=== PATIENT | female | born 1940 | race Caucasian/White ===

== ENCOUNTER 2022-05-30 20:09 | Emergency (ER) | payer MEDICARE, OTHER ==
--- NOTE | 2022-05-30 21:14 | XRAY ---
Indication: Headache. Posterior head injury following fall. Multiple contiguous axial images obtained through the head without contrast. Comparison: None Age-appropriate global atrophy and minimal periventricular degenerative micro-ischemia bilaterally. No acute intracranial hemorrhage, abnormal extra-axial fluid collection, or mass effect. Fourth ventricle is midline without hydrocephalus. Bony calvarium intact. Paranasal sinuses and mastoid air cells are clear. Impression: Nonacute senile brain.
--- NOTE | 2022-05-30 21:16 | XRAY ---
Indication: Neck pain following fall. Multiple contiguous axial images obtained through the cervical spine. Sagittal and coronal reformatted images obtained. Comparison: None Age-related osteopenia. Axial images negative for acute fracture, suspicious bone lesions, or spinal canal stenosis. Mild/moderate C4-C7 degenerative endplate spurring and mild/moderate multilevel bilateral degenerative facet hypertrophy. Sagittal and coronal reformatted images demonstrate lordotic straightening, positional versus paraspinal spasm. Elsewhere 3 mm anterolisthesis of C3 on C4 and C4-C7 disc space loss. No acute compression fracture or jumped facet. Normal appearing craniocervical junction. Visualized noncontrasted soft tissues demonstrates moderate bilateral carotid calcifications. Lung apices unremarkable. Impression: 1. Cervical lordotic straightening, positional versus paraspinal spasm. 2. Negative acute fracture. 3. Osteopenia, multilevel degenerative spondylosis, and minimal grade 1 C3 anterolisthesis.
--- NOTE | 2022-05-30 21:23 | ERPHSYRPT ---
- History of Present Illness Time Seen by Provider: 05/30/22 20:35 Source: patient, family Exam Limitations: no limitations Patient Subjective Stated Complaint: pt states "I fell around 1 pm today and fell back and hit my head." Triage Nursing Assessment: pt ambulatory to bed by self with personal walker with daughter, pt alert and oriented x3, pt c/o headache and L sided neck pain after falling around 1300, pt is on coumadin, pt unsure if any LOC, pupils PERRL Physician History: Patient is an 82-year-old white female who suffered a fall in March hitting the back of her head and then today she once again fell backward hitting the back of her head in the exact same spot. She had no loss of consciousness she does complain of pain in the head and in the neck. She had a PT/INR this morning which was 2.3 and very acceptable. She is also on Coumadin. Occurred: this afternoon Reason for Fall: lost balance Injuries/Pain Location: head Loss of Consciousness: no loss of consciousness Quality: throbbing Severity of Pain-Max: mild Severity of Pain-Current: mild Modifying Factors: Improves With: nothing Associated Symptoms (Fall): denies symptoms Allergies/Adverse Reactions: No Known Drug Allergies Allergy (Verified 12/26/14 06:17) Home Medications: Potassium Chloride Tab* [Klor Con] 20 meq PO QAM 12/22/14 [History] Furosemide 40 mg PO DAILY PRN 12/02/18 [History] Multivitamin [Daily Multivitamin] 1 tablet PO DAILY 12/02/18 [History] Sacubitril/Valsartan [Entresto 49 mg-51 mg Tablet] 0.5 tablet PO BID 12/02/18 [History] Spironolactone 25 mg PO QAM 12/02/18 [History] Trospium Chloride 10 mg PO BID 12/02/18 [History] carvediloL [Carvedilol] 12.5 mg PO BIDWM 12/02/18 [History] Fluticasone/Umeclidin/Vilanter [Trelegy Ellipta 100-62.5-25] 1 ea IH DAILY 04/05/19 [History] Magnesium Oxide [Magnesium] 250 mg PO DAILY 04/09/21 [History] Hx Tetanus, Diphtheria Vaccination/Date Given: Yes Hx Influenza Vaccination/Date Given: Yes Hx Pneumococcal Vaccination/Date Given: Yes Immunizations Up to Date: Yes Travel Risk - International Travel Have you traveled outside of the country in past 3 weeks: No - Coronavirus Screening Are you exhibiting any of the following symptoms?: No - Vaccine Status Have you recieved a Covid-19 vaccination: No - Review of Systems Constitutional: No Fever, No Chills Eyes: No Symptoms Ears, Nose, & Throat: No Symptoms Respiratory: No Cough, No Dyspnea Cardiac: No Chest Pain, No Edema, No Syncope Abdominal/Gastrointestinal: No Abdominal Pain, No Nausea, No Vomiting, No Diarrhea Genitourinary Symptoms: No Dysuria Musculoskeletal: Neck Pain, No Back Pain Skin: No Rash Neurological: Headache, No Dizziness, No Focal Weakness, No Sensory Changes Psychological: No Symptoms Endocrine: No Symptoms All Other Systems: Reviewed and Negative - Past Medical History Pertinent Past Medical History: Yes Neurological History: No Pertinent History ENT History: No Pertinent History Cardiac History: Arrhythmia, Hypertension Respiratory History: No Pertinent History Endocrine Medical History: No Pertinent History Musculoskeletal History: Arthritis GI Medical History: No Pertinent History, Polyps History: No Pertinent History Psycho-Social History: No Pertinent History Female Reproductive Disorders: No Pertinent History - Past Surgical History Past Surgical History: Yes Neuro Surgical History: No Pertinent History Cardiac: No Pertinent History Respiratory: No Pertinent History Gastrointestinal: Cholecystectomy Musculoskeletal: Joint Replacement Female Surgical History: Hysterectomy Other Surgical History: lucy knees - Social History Smoking Status: Never smoker Exposure to second hand smoke: No Drug Use: none Patient Lives Alone: No - Nursing Vital Signs Nursing Vital Signs: Initial Vital Signs Temperature 97.2 F 05/30/22 20:23 Pulse Rate 78 05/30/22 20:23 Respiratory Rate 18 05/30/22 20:23 Blood Pressure 124/74 05/30/22 20:23 O2 Sat by Pulse Oximetry 98 05/30/22 20:23 Pain Scale Pain Intensity 6 - Kumar Coma Score Best Eye Response ([place]): (4) open spontaneously Best Verbal Response ([place]): (5) oriented Best Motor Response ([place]): (6) obeys commands Kumar Total: 15 - Physical Exam General Appearance: no apparent distress, alert Head Injury: no evidence of injury Eye Exam: PERRL/EOMI ENT Exam: airway nml Neck Exam: normal inspection, No tenderness Respiratory/Chest Exam: normal breath sounds, No chest tenderness, No respiratory distress Cardiovascular Exam: normal heart sounds, regular rate/rhythm Gastrointestinal Exam: soft, No tenderness, No distention, No guarding, No ecchymosis Back Exam: normal inspection, No vertebral tenderness Extremity Exam: normal inspection, normal range of motion, pelvis stable, No deformities Neurologic Exam: alert, oriented x 3, cooperative, sensation nml, No motor deficits Skin Exam: normal color, warm, dry SpO2: 98 - Course Nursing assessment & vital signs reviewed: Yes - CT Exams Head CT Interpretation: Negative, Tele-radiologist Report Cervical Spine CT Interpretation: Other (Some loss of lordosis and degenerative changes no acute fracture or dislocation) Ordered Tests: Active Orders 24 hr Category Date Time Status CERVICAL SPINE WO CONTRAST [CT] Stat Exams 05/30/22 20:20 Completed HEAD WITHOUT CONTRAST [CT] Stat Exams 05/30/22 20:20 Completed - Progress Progress: unchanged - Departure Departure Disposition: Home Clinical Impression: Fall, Cervical strain, Closed head injury Condition: Stable Critical Care Time: No Referrals: TASHA CONWAY DO [Primary Care Provider] - Follow up/PCP as directed Instructions: Preventing Falls in Older Adults, Contusion (DC)
[2022-05-30 23:05] VITALS: BP 105/69; PULSE 93; O2SAT 96
[2022-05-31] MEDS ORDERED: COREG 12.5 MG PO SCH (10:00)
== END 2022-05-30 23:14 | disposition home or self-care (01) ==
LOC: ED 20:09
DX: S09.90XA Unspecified injury of head, initial encounter (principal); S16.1XXA Strain of muscle, fascia and tendon at neck level, initial encounter; W18.30XA Fall on same level, unspecified, initial encounter; Z91.81 History of falling; R00.2 Palpitations; R51.9 Headache, unspecified; M54.2 Cervicalgia; I10 Essential (primary) hypertension; Z79.01 Long term (current) use of anticoagulants; Z79.899 Other long term (current) drug therapy; Z28.310 Unvaccinated for COVID-19
CPT/HCPCS: 36415; 70450; 72125; 84484; 93005; 99283; A9270-GY

== ENCOUNTER 2022-11-18 10:18 | Inpatient (IN) | payer MEDICARE, OTHER ==
--- NOTE | 2022-11-18 11:28 | XRAY ---
Indication: Left-sided weakness and dizziness. Stroke. Multiple contiguous axial images obtained through the head without contrast. Comparison: May 30, 2022 Again age-appropriate global atrophy and minimal periventricular degenerative micro-ischemia. No acute intracranial hemorrhage, abnormal extra axial fluid collection, mass effect. Fourth ventricle is midline without hydrocephalus. [place]aj[place]-white matter differentiation preserved. Bony calvarium intact. Visualized paranasal sinuses and mastoid air cells are clear. Impression: Continued nonacute senile brain.
--- NOTE | 2022-11-18 11:52 | ERPHSYRPT ---
- History of Present Illness Time Seen by Provider: 11/18/22 10:40 Source: patient Exam Limitations: no limitations Patient Subjective Stated Complaint: Pt states "my legs have been swollen and sore. home health nurse told me my bp was very low" Triage Nursing Assessment: pt to room 9 via wheelchair with assist of one staff after using restroom for urine specimen collection. respiration even and unlabored on room. c/o bilat lower leg pain that is rated 5/10 and reports this is chronic and unchanged. heart sound WNL, bilat breath sound equal and clear. no s/s difficulty breathing. pt denies cp, sob, or other complaints. pt states that her blood pressure "always run like that" but was a little lower today. Physician History: Patient is an 82-year-old female presents to our ED for evaluation of blood pressure and dizziness. Patient sees a home health nurse for evaluation and treatment of right lower extremity wounds. Patient's blood pressure was checked and was advised that it was low. Patient advised RN that she had been feeling dizzy. Patient was therefore sent to our ED for an evaluation. Patient has a history of atrial fibrillation. Patient on Coumadin. Patient does not know last INR level or when it was last checked. patient has ongoing dizziness. Dizziness is not provoked by head motion. No history of the same. Symptoms are moderate in intensity. No specific worsening or improving factors. Patient voices no other complaints or concerns at this time. Portions of this note were created with voice recognition technology. There may be grammatical, spelling, punctuation or sound alike errors Timing/Duration: today Severity: moderate Modifying Factors: Improves With: nothing Associated Symptoms: denies symptoms Allergies/Adverse Reactions: No Known Drug Allergies Allergy (Verified 11/18/22 11:02) Home Medications: Potassium Chloride Tab* [Klor Con] 20 meq PO QAM 12/22/14 [History] Furosemide 40 mg PO DAILY PRN 12/02/18 [History] carvediloL [Carvedilol] 12.5 mg PO BIDWM 12/02/18 [History] Amiodarone HCl 200 mg [Cordarone 200 MG] 200 mg PO BID 11/18/22 [History] Digoxin 0.125 mg Tablet [Lanoxin 0.125MG TABLET] 0.125 mg PO DAILY 11/18/22 [History] Metolazone 2.5 mg [Zaroxolyn 2.5 MG] 2.5 mg PO 2XW 11/18/22 [History] Torsemide 20 mg [Demadex 20 mg] 20 mg PO BID 11/18/22 [History] Warfarin Sodium 5 mg [Jantoven] 4 mg PO DAILY 11/18/22 [History] Hx Tetanus, Diphtheria Vaccination/Date Given: Yes Hx Influenza Vaccination/Date Given: Yes Hx Pneumococcal Vaccination/Date Given: Yes Immunizations Up to Date: Yes Travel Risk - International Travel Have you traveled outside of the country in past 3 weeks: No - Coronavirus Screening Are you exhibiting any of the following symptoms?: No Close contact with a COVID-19 positive Pt in past 14-21 Days: No - Vaccine Status Have you recieved a Covid-19 vaccination: No - Review of Systems Constitutional: No Symptoms, No Fever, No Chills Eyes: No Symptoms Ears, Nose, & Throat: No Symptoms Respiratory: No Symptoms, No Cough, No Dyspnea Cardiac: No Symptoms, No Chest Pain, No Edema, No Syncope Abdominal/Gastrointestinal: No Symptoms, No Abdominal Pain, No Nausea, No Vomiting, No Diarrhea Genitourinary Symptoms: No Symptoms, No Dysuria Musculoskeletal: No Symptoms, No Back Pain, No Neck Pain Skin: No Symptoms, No Rash Neurological: No Symptoms, No Dizziness, No Focal Weakness, No Sensory Changes Psychological: No Symptoms Endocrine: No Symptoms Hematologic/Lymphatic: No Symptoms Immunological/Allergic: No Symptoms All Other Systems: Reviewed and Negative - Past Medical History Pertinent Past Medical History: Yes Neurological History: No Pertinent History ENT History: No Pertinent History Cardiac History: Arrhythmia, Congestive Heart Failure, Hypertension Respiratory History: No Pertinent History Endocrine Medical History: No Pertinent History Musculoskeletal History: Arthritis GI Medical History: No Pertinent History, Polyps History: No Pertinent History Psycho-Social History: No Pertinent History Female Reproductive Disorders: No Pertinent History Other Medical History: scheduled for PPM/ defib 12/03/[address] Harden - Past Surgical History Past Surgical History: Yes Neuro Surgical History: No Pertinent History Cardiac: No Pertinent History Respiratory: No Pertinent History Gastrointestinal: Cholecystectomy Genitourinary: No Pertinent History Musculoskeletal: Joint Replacement Female Surgical History: Hysterectomy Other Surgical History: lucy knees - Social History Smoking Status: Never smoker Exposure to second hand smoke: No Drug Use: none Patient Lives Alone: No - Nursing Vital Signs Nursing Vital Signs: Initial Vital Signs Temperature 96.9 F 11/18/22 10:30 Respiratory Rate 20 11/18/22 10:30 Blood Pressure 100/60 11/18/22 10:30 Pain Scale Pain Intensity 4 - Physical Exam General Appearance: no apparent distress, alert Eye Exam: PERRL/EOMI, eyes nml inspection Ears, Nose, Throat Exam: normal ENT inspection, TMs normal, pharynx normal, moist mucous membranes Neck Exam: normal inspection, non-tender, supple, full range of motion Respiratory Exam: normal breath sounds, lungs clear, No respiratory distress Cardiovascular Exam: regular rate/rhythm, normal heart sounds, normal peripheral pulses Gastrointestinal/Abdomen Exam: soft, normal bowel sounds, No tenderness, No mass Back Exam: normal inspection, normal range of motion, No CVA tenderness, No vertebral tenderness Extremity Exam: normal inspection, normal range of motion, pelvis stable Neurologic Exam: alert, oriented x 3, cooperative, normal mood/affect, nml cerebellar function, nml station & gait, sensation nml, No motor deficits Skin Exam: normal color, warm, dry, No rash Lymphatic Exam: No adenopathy SpO2 Interpretation: normal SpO2: 95 O2 Delivery: Room Air - Course Nursing assessment & vital signs reviewed: Yes EKG Interpreted by Me: RATE (54), A-fib, NORMAL AXIS, NORMAL INTERVALS - CT Exams Head CT Interpretation: Tele-radiologist Report (Nonacute senile brain) Other CT Interpretation: Tele-radiologist Report (CT a head with contrast shows mild scattered arteriosclerotic calcifications, bilateral distal carotid arteries with critical stenosis) Soft Tissue Neck CT Interpretation: Tele-radiologist Report (Mild atherosclerotic calcifications. Left greater than right. Biapical patchy groundglass airspace disease. Chronic bony findings) Ordered Tests: Active Orders 24 hr Category Date Time Status [employer] STAT Care 11/18/22 10:44 Active Cath [Catheter-[place]] STAT Care 11/18/22 15:49 Active EKG-ER Only STAT Care 11/18/22 10:43 Active IV Insertion STAT Care 11/18/22 10:43 Active Pulse Oximetry (ED) STAT Care 11/18/22 10:[address] ANGIOGRAPHY NECK [CT] Stat Exams 11/18/22 14:19 Completed CTA HEAD W AND/OR WO CONTRAST [CT] Stat Exams 11/18/22 14:19 Completed HEAD WITHOUT CONTRAST [CT] Stat Exams 11/18/22 10:45 Completed CBC W DIFF Stat Lab 11/18/22 10:43 Completed CMP Stat Lab 11/18/22 12:04 Completed CULTURE,URINE Stat Lab 11/18/22 11:04 Received MAGNESIUM Stat Lab 11/18/22 12:04 Completed NT PRO BNPII Stat Lab 11/18/22 12:04 Completed PTT Stat Lab 11/18/22 12:04 Completed TROPONIN Q4H Lab 11/18/22 12:04 Completed TROPONIN Q4H Lab 11/18/22 15:35 Completed TROPONIN Q4H Lab 11/18/22 18:45 Ordered UA W/RFX UR CULTURE Stat Lab 11/18/22 11:04 Completed Transfer Order Routine Transfer 11/18/22 Ordered Medication Summary Generic Name Dose Route Start Last Admin Trade Name Freq PRN Reason Stop Dose Admin Ceftriaxone Sodium/Dextrose 1 g in 50 mls @ 100 mls/hr 11/18/22 16:46 11/18/22 17:05 Rocephin 1 Gm-D5w 50 Ml Bag IV 11/18/22 17:15 Infused STAT STA Infusion Discontinued Medications Generic Name Dose Route Start Last Admin Trade Name Freq PRN Reason Stop Dose Admin Ceftriaxone Sodium/Dextrose Confirm 11/18/22 16:49 Rocephin 1 Gm-D5w 50 Ml Bag Administered 11/18/22 16:50 Dose 1 g in 50 mls @ ud IV .K-MED ONE Lab/Rad Data: Laboratory Result Diagrams 11/18/22 10:43 11/18/22 12:04 Laboratory Results 11/18/22 11/18/22 11/18/22 Range/Units 15:35 15:35 12:04 WBC (4.0-10.5) x10^3/uL RBC (4.1-5.4) x10^6/uL Hgb (12.0-16.0) g/dL Hct (35-47) % MCV (78-100) fL MCH (26-32) pg MCHC (32-36) g/dL RDW (11.5-14.0) % Plt Count (150-450) x10^3/uL MPV (7.5-11.0) fL Gran % (36.0-66.0) % Immature Gran % (Auto) (0.00-0.4) % Nucleat RBC Rel Count (0.00-0.1) % Eos # (Auto) (0-0.5) x10^3/uL Immature Gran # (Auto) (0.00-0.03) x10^3u/L Absolute Lymphs (auto) (1.0-4.6) x10^3/uL Absolute Monos (auto) (0.0-1.3) x10^3/uL Absolute Nucleated RBC (0.00-0.01) x10^3u/L Lymphocytes % (24.0-44.0) % Monocytes % (0.0-12.0) % Eosinophils % (0.00-5.0) % Basophils % (0.0-0.4) % Absolute Granulocytes (1.4-6.9) x10^3/uL Basophils # (0-0.4) x10^3/uL APTT (25.1-36.5) SECONDS Sodium (137-145) mmol/L Potassium (3.5-5.1) mmol/L Chloride (98-107) mmol/L Carbon Dioxide (22-30) mmol/L Anion Gap (5-15) MEQ/L BUN (7-17) mg/dL Creatinine (0.52-1.04) mg/dL Estimated GFR ML/MIN Glucose (74-106) mg/dL Calcium (8.4-10.2) mg/dL Magnesium (1.6-2.3) mg/dL Total Bilirubin (0.2-1.3) mg/dL AST (14-36) U/L ALT (0-35) U/L Alkaline Phosphatase (38-126) U/L Troponin I 0.021 0.023 (0.000-0.034) ng/mL NT-Pro-B Natriuret Pep (<300) pg/mL Serum Total Protein (6.3-8.2) g/dL Albumin (3.5-5.0) g/dL Urine Color (Yellow) Urine Appearance (Clear) Urine pH (4.6-8.0) Ur Specific [place] (1.005-1.030) Urine Protein (Negative) Urine Glucose (UA) (Negative) mg/dL Urine Ketones (Negative) Urine Blood (Negative) Urine Nitrite (Negative) Urine Bilirubin (Negative) Urine Urobilinogen (0.2) mg/dL Ur Leukocyte Esterase (Negative) U Hyaline Cast (Auto) (0-2) /LPF Urine Microscopic RBC (0-5) /HPF Urine Microscopic WBC (0-5) /HPF Ur Epithelial Cells (None Seen) /HPF Urine Bacteria (None Seen) /HPF Urine Culture Reflexed (NO) Influenza Type A Ag NEGATIVE (NEGATIVE) Influenza Type B Ag NEGATIVE (NEGATIVE) RSV (PCR) NEGATIVE (NEGATIVE) SARS-CoV-2 (PCR) NEGATIVE (NEGATIVE) 11/18/22 11/18/22 11/18/22 Range/Units 12:04 12:04 11:04 WBC (4.0-10.5) x10^3/uL RBC (4.1-5.4) x10^6/uL Hgb (12.0-16.0) g/dL Hct (35-47) % MCV (78-100) fL MCH (26-32) pg MCHC (32-36) g/dL RDW (11.5-14.0) % Plt Count (150-450) x10^3/uL MPV (7.5-11.0) fL Gran % (36.0-66.0) % Immature Gran % (Auto) (0.00-0.4) % Nucleat RBC Rel Count (0.00-0.1) % Eos # (Auto) (0-0.5) x10^3/uL Immature Gran # (Auto) (0.00-0.03) x10^3u/L Absolute Lymphs (auto) (1.0-4.6) x10^3/uL Absolute Monos (auto) (0.0-1.3) x10^3/uL Absolute Nucleated RBC (0.00-0.01) x10^3u/L Lymphocytes % (24.0-44.0) % Monocytes % (0.0-12.0) % Eosinophils % (0.00-5.0) % Basophils % (0.0-0.4) % Absolute Granulocytes (1.4-6.9) x10^3/uL Basophils # (0-0.4) x10^3/uL APTT 31.2 (25.1-36.5) SECONDS Sodium 138 (137-145) mmol/L Potassium 4.2 (3.5-5.1) mmol/L Chloride 98 (98-107) mmol/L Carbon Dioxide 34 H (22-30) mmol/L Anion Gap 10.1 (5-15) MEQ/L BUN 26 H (7-17) mg/dL Creatinine 0.94 (0.52-1.04) mg/dL Estimated GFR > 60.0 ML/MIN Glucose 118 H (74-106) mg/dL Calcium 8.8 (8.4-10.2) mg/dL Magnesium 2.1 (1.6-2.3) mg/dL Total Bilirubin 0.60 (0.2-1.3) mg/dL AST 32 (14-36) U/L ALT 19 (0-35) U/L Alkaline Phosphatase 95 (38-126) U/L Troponin I (0.000-0.034) ng/mL NT-Pro-B Natriuret Pep 1630 (<300) pg/mL Serum Total Protein 7.4 (6.3-8.2) g/dL Albumin 4.0 (3.5-5.0) g/dL Urine Color Yellow (Yellow) Urine Appearance Cloudy A (Clear) Urine pH 7.0 (4.6-8.0) Ur Specific [place] 1.010 (1.005-1.030) Urine Protein Trace A (Negative) Urine Glucose (UA) Negative (Negative) mg/dL Urine Ketones Negative (Negative) Urine Blood Negative (Negative) Urine Nitrite Negative (Negative) Urine Bilirubin Negative (Negative) Urine Urobilinogen 1.0 A (0.2) mg/dL Ur Leukocyte Esterase Small A (Negative) U Hyaline Cast (Auto) 3-5 A (0-2) /LPF Urine Microscopic RBC 3-5 (0-5) /HPF Urine Microscopic WBC 11-20 A (0-5) /HPF Ur Epithelial Cells Few (None Seen) /HPF Urine Bacteria Moderate A (None Seen) /HPF Urine Culture Reflexed YES (NO) Influenza Type A Ag (NEGATIVE) Influenza Type B Ag (NEGATIVE) RSV (PCR) (NEGATIVE) SARS-CoV-2 (PCR) (NEGATIVE) 03/21/23 Range/Units 10:43 WBC 6.9 (4.0-10.5) x10^3/uL RBC 3.95 L (4.1-5.4) x10^6/uL Hgb 12.5 (12.0-16.0) g/dL Hct 39.5 (35-47) % MCV 100.0 (78-100) fL MCH 31.6 (26-32) pg MCHC 31.6 L (32-36) g/dL RDW 13.7 (11.5-14.0) % Plt Count 190 (150-450) x10^3/uL MPV 10.6 (7.5-11.0) fL Gran % 70.5 H (36.0-66.0) % Immature Gran % (Auto) 0.6 H (0.00-0.4) % Nucleat RBC Rel Count 0.0 (0.00-0.1) % Eos # (Auto) 0.06 (0-0.5) x10^3/uL Immature Gran # (Auto) 0.04 H (0.00-0.03) x10^3u/L Absolute Lymphs (auto) 0.90 L (1.0-4.6) x10^3/uL Absolute Monos (auto) 0.93 (0.0-1.3) x10^3/uL Absolute Nucleated RBC 0.00 (0.00-0.01) x10^3u/L Lymphocytes % 13.1 L (24.0-44.0) % Monocytes % 13.6 H (0.0-12.0) % Eosinophils % 0.9 (0.00-5.0) % Basophils % 1.3 (0.0-0.4) % Absolute Granulocytes 4.84 (1.4-6.9) x10^3/uL Basophils # 0.09 (0-0.4) x10^3/uL APTT (25.1-36.5) SECONDS Sodium (137-145) mmol/L Potassium (3.5-5.1) mmol/L Chloride (98-107) mmol/L Carbon Dioxide (22-30) mmol/L Anion Gap (5-15) MEQ/L BUN (7-17) mg/dL Creatinine (0.52-1.04) mg/dL Estimated GFR ML/MIN Glucose (74-106) mg/dL Calcium (8.4-10.2) mg/dL Magnesium (1.6-2.3) mg/dL Total Bilirubin (0.2-1.3) mg/dL AST (14-36) U/L ALT (0-35) U/L Alkaline Phosphatase (38-126) U/L Troponin I (0.000-0.034) ng/mL NT-Pro-B Natriuret Pep (<300) pg/mL Serum Total Protein (6.3-8.2) g/dL Albumin (3.5-5.0) g/dL Urine Color (Yellow) Urine Appearance (Clear) Urine pH (4.6-8.0) Ur Specific [place] (1.005-1.030) Urine Protein (Negative) Urine Glucose (UA) (Negative) mg/dL Urine Ketones (Negative) Urine Blood (Negative) Urine Nitrite (Negative) Urine Bilirubin (Negative) Urine Urobilinogen (0.2) mg/dL Ur Leukocyte Esterase (Negative) U Hyaline Cast (Auto) (0-2) /LPF Urine Microscopic RBC (0-5) /HPF Urine Microscopic WBC (0-5) /HPF Ur Epithelial Cells (None Seen) /HPF Urine Bacteria (None Seen) /HPF Urine Culture Reflexed (NO) Influenza Type A Ag (NEGATIVE) Influenza Type B Ag (NEGATIVE) RSV (PCR) (NEGATIVE) SARS-CoV-2 (PCR) (NEGATIVE) - Progress Progress: improved Progress Note: Case discussed with Dr. Mckeon accepts admission to observation. Plan of care discussed with patient. She agrees to admission [facility] for further evaluation and treatment. 11/18/22 17:03 Patient is an 82-year-old female presents to our ED for evaluation of dizziness. Patient initially stated her blood pressure was low however blood pressure has been normal since her arrival to our ED today. Physical exam was essentially nonremarkable. No focal or lateralizing symptoms observed. Work-up detailed EKG which showed chronic atrial fibrillation. Patient currently on Coumadin. CTA head was negative for acute intracranial pathology. Nonacute senile brain observed. CBC CMP COVID ordered. COVID test negative. Magnesium within normal limits. BNP ordered. Troponin was 0.023, and 0.021. Patient has no chest pain. Urinalysis significant for urinary tract infection. We were unable to elicit patient's dizziness based on head motion. We consulted telemetry neurologist who advised a CT angio head and neck. CT angio completed. There was no critical stenosis observed. Teleneurologist advised admission for MRI brain without contrast. Other recommendations made. Please refer to teleneurologist note for further details. Vital stable. Complexity of problem addressed was moderate. Urinary tract infection. Dizziness is a new diagnosis with uncertain prognosis or etiology. Patient will require work-up to rule out stroke/posterior circulation stroke. Complexity of data reviewed and analyzed was moderate. Test ordered. Test reviewed. Patient is hard of hearing however she served as the primary historian. Consultation obtained from teleneurologist for management. Formal report obtained please observe chart for findings. Case discussed with Dr. Mckeon covering Dr. Arnold. Dr. Mckeon excepts admission to observation. Risk of complication of patient management was moderate. Patient received IV Rocephin to treat urinary tract infection. Patient will be hospitalized for further evaluation and treatment. Plan of care discussed the patient. She agrees to admission [facility] for further evaluation and treatment. Plan of care was established using the shared decision-making model. Patient's son is not at the bedside. He voices no other complaints or concerns at this time. Portions of this note were created with voice recognition technology. There may be grammatical, spelling, punctuation or sound alike errors 11/18/22 17:12 Discussed with : Mayte Will see patient in: hospital (observation) Counseled pt/family regarding: lab results, diagnosis, rad results - Departure Departure Disposition: Observation Clinical Impression: Urinary tract infection, Dizziness Condition: Stable Critical Care Time: No Referrals: TASHA CONWAY DO [Primary Care Provider] - Follow up/PCP as directed
[2022-11-18 12:02] LABS: Absolute Neutrophil Ct (ANC) 4.84 x10^3/uL (1.4-6.9); BASOPHIL % 1.3 % (0.0-0.4); Basophil (Absolute #) 0.09 x10^3/uL (0-0.4); Eosinophil % 0.9 % (0.00-5.0); Eosinophil (Absolute #) 0.06 x10^3/uL (0-0.5); Hematocrit 39.5 % (35-47); Hemoglobin 12.5 g/dL (12.0-16.0); IMMATURE GRAN # 0.04 x10^3u/L (0.00-0.03); IMMATURE GRAN % 0.6 % (0.00-0.4); Lymphocytes % 13.1 % (24.0-44.0); Mean Corpuscular Hemoglobin 31.6 pg (26-32); Mean Corpuscular Hgb Concent. 31.6 g/dL (32-36); Mean Platelet Volume 10.6 fL (7.5-11.0); Monocyte (Absolute #) 0.93 x10^3/uL (0.0-1.3); Monocytes % 13.6 % (0.0-12.0); Neutrophil % 70.5 % (36.0-66.0); Platelet Count 190 x10^3/uL (150-450); Red Blood Count 3.95 x10^6/uL (4.1-5.4); Red Cell Distribution Width 13.7 % (11.5-14.0); White Blood Count 6.9 x10^3/uL (4.0-10.5)
[2022-11-18 12:10] LABS: Appearance Cloudy (Clear); Bacteria Moderate /HPF (None Seen); Bilirubin Negative (Negative); Blood Negative (Negative); Epithelial Cells Few /HPF (None Seen); Glucose, Urine Negative (Negative); Ketones Negative (Negative); Leukocyte Esterase Small (Negative); Nitrite Negative (Negative); Protein,Urine Dip Trace (Negative)
[2022-11-18 12:16] LABS: ADD URINE CULTURE? YES (NO)
[2022-11-18 12:27] LABS: ALKALINE PHOSPHATASE 95 U/L (38-126); ANION GAP 10.1 MEQ/L (5-15); BLOOD UREA NITROGEN 26 mg/dL (7-17); CHLORIDE 98 mmol/L (98-107); Calcium 8.8 mg/dL (8.4-10.2); Carbon Dioxide 34 mmol/L (22-30); Creatinine 1 0.94 mg/dL (0.52-1.04); EST GLOMERULAR FILTRATION RATE > 60.0 ML/MIN; Glucose 118 mg/dL (74-106); MAGNESIUM 2.1 mg/dL (1.6-2.3); NT PRO BNPII 1630 pg/mL (<300); Potassium 4.2 mmol/L (3.5-5.1); SGOT/AST 32 U/L (14-36); SGPT/ALT 19 U/L (0-35); SODIUM 138 mmol/L (137-145); Total Protein 7.4 g/dL (6.3-8.2)
--- NOTE | 2022-11-18 15:29 | XRAY ---
Indication: Left-sided weakness and dizziness. Conventional contrast enhanced CTA neck performed using 100 cc Isovue 370 contrast. 2-D sagittal and coronal reformatted images obtained. Additional 3-D reformatted images obtained using a separate workstation. Comparison: None Visualized aortic arch minimally arteriosclerotic without aneurysm/dissection. Widely patent origin right brachiocephalic, left common carotid, and left subclavian arteries. Examination of the right carotid circulation demonstrates mild eccentric calcifications at the level of the bulb. Remaining common carotid, internal carotid, external carotid arteries are normal in CTA appearance. Examination of the left carotid circulation also demonstrates minimal eccentric calcifications of the level of the bulb. This further extends into the proximal internal carotid artery. No critical stenosis/obstruction. Remaining common carotid and external carotid arteries are normal in CTA appearance. Vertebral arteries are bilaterally symmetric and widely patent. Thyroid gland enhances homogeneously. No pathologic cervical/supraclavicular lymphadenopathy. Supra and infraglottic airway widely patent. Cervical spine intact with osteopenia, minimal/mild multilevel degenerative spondylosis greatest at C5-C7 levels, and 3-4 mm anterolisthesis of C3 on C4. Lung apices demonstrates incompletely visualized bilateral patchy ground glass airspace disease. Impression: 1. Mild arteriosclerotic calcifications, left greater than right as detailed. Negative for critical stenosis/obstruction. Remaining CTA neck negative. 2. Biapical pulmonary patchy ground glass airspace disease. 3. Chronic bony findings.
--- NOTE | 2022-11-18 15:31 | XRAY ---
Indication: Left-sided weakness and dizziness. Conventional contrast enhanced CTA head performed using 100 cc Isovue 370 contrast. 2-D sagittal and coronal reformatted images obtained. Additional 3-D reformatted images obtained using a separate workstation. Comparison: None Distal internal carotid arteries are bilaterally symmetric with mild scattered arteriosclerotic calcifications involving the parasellar segments. Negative for critical stenosis, obstruction, or AV malformation. Normal carotid terminus with normal branching A1 and M1 segments bilaterally. More distal anterior cerebral and middle cerebral arteries are normal in CTA appearance bilaterally. Posterior circulation demonstrates normal CTA appearance to the basilar, left/right posterior cerebral, left/right superior cerebellar, and left/right anterior inferior cerebellar arteries. Venous sinuses/drainage unremarkable. Brain parenchyma negative for abnormal enhancing intra-or extra-axial mass. Impression: Mild scattered arteriosclerotic calcifications both distal internal carotid arteries without critical stenosis/occlusion. Remaining CTA head with contrast exam is negative.
[2022-11-18 16:19] LABS: INFLUENZA A NEGATIVE (NEGATIVE); INFLUENZA B NEGATIVE (NEGATIVE); RESPIRATORY SYNCTIAL VIRUS NEGATIVE (NEGATIVE); SARS-CoV-2 Xpert Express NEGATIVE (NEGATIVE)
[2022-11-18] MEDS ORDERED: ROCEPHIN 1 Gm-D5w 50 ml Bag** 1 G/50 ML IVPB IV STA (16:46)
[2022-11-18] MEDS ORDERED: ROCEPHIN 1 Gm-D5w 50 ml Bag** 1 G/50 ML IVPB IV ONE (16:49)
[2022-11-18] MEDS ORDERED: MAALOX ES 30 ML UNIT DOSE PO PRN (17:28)
[2022-11-18] MEDS ORDERED: TYLENOL 325 MG PO PRN (17:28)
[2022-11-18] MEDS ORDERED: Senokot-S Tablet PO PRN (17:28)
[2022-11-18] MEDS ORDERED: MILK OF MAGNESIA 30 ML PO PRN (17:28)
[2022-11-18] MEDS ORDERED: Zofran 4 MG/2 ML VIAL IV PRN (17:28)
[2022-11-18 21:16] LABS: INR 1.96 (0.8-3.0); PROTIME 20.3 SECONDS (9.4-12.5)
[2022-11-18] MEDS ORDERED: COREG 12.5 MG PO SCH (22:00)
[2022-11-18] MEDS ORDERED: JANTOVEN ONE (22:10)
[2022-11-18] MEDS ORDERED: Coumadin 3 MG ONE (22:10)
[2022-11-18] MEDS: Lanoxin 0.125MG TABLET PO SCH (22:18)
[2022-11-18] MEDS: Cordarone 200 MG PO SCH (22:21)
[2022-11-19 05:47] LABS: Risk Ratio 3.4
[2022-11-19] MEDS ORDERED: FENTANYL 500 MCG/10 ML VIAL 1,500 MCG in Sodium Chloride 0.9% 150 ML 120 ML IV PRN (09:41)
[2022-11-19] MEDS ORDERED: SUBLIMAZE 100 MCG/2 ML IV PRN (09:41)
[2022-11-19] MEDS ORDERED: SUBLIMAZE 100 MCG/2 ML IV ONE (09:42)
[2022-11-19] MEDS: Advair Hfa 115/21 Common canister IH SCH ×2 (11:18→18:39)
[2022-11-19] MEDS: Sodium Chloride 0.9% 1000 ML 1,000 ML IV SCH (11:33)
[2022-11-19] MEDS: Cordarone 200 MG PO SCH ×2 (11:34→21:49)
[2022-11-19] MEDS: COREG 12.5 MG PO SCH ×2 (11:34→18:15)
[2022-11-19] MEDS: ROCEPHIN 1 Gm-D5w 50 ml Bag** 1 G/50 ML IVPB IV SCH (11:34)
[2022-11-19] MEDS: JANTOVEN PO SCH (18:15)
[2022-11-19] MEDS: Coumadin 3 MG PO SCH (18:15)
--- NOTE | 2022-11-19 19:03 | XRAY ---
Indication: Dizziness. Negative CT head, CTA neck, and CTA brain. Sagittal, coronal, and axial MRI brain performed without contrast using T1, T2, FLAIR, diffusion, and ADC sequences. Comparison: None Age-appropriate global atrophy and minimal periventricular degenerative micro-ischemia signal bilaterally. No acute intracranial hemorrhage, abnormal extra-axial fluid collection, or mass effect. Diffusion images are negative for restricted signal. Fourth ventricle is midline without hydrocephalus. 7/8 cranial nerve complex bilaterally symmetric. Normal flow void signal within the major intracerebral circulation. Normal appearing craniocervical junction and sella turcica. Paranasal sinuses are clear. Impression: Atrophy and degenerative micro-ischemia within normal limits for patient's age. Appearance similar to CT head exam one day earlier. No acute intracranial abnormalities or evidence for evolving large vessel territorial stroke.
[2022-11-20] MEDS: Sodium Chloride 0.9% 1000 ML 1,000 ML IV SCH (03:38)
[2022-11-20] MEDS: Advair Hfa 115/21 Common canister IH SCH ×2 (07:50→19:20)
[2022-11-20] MEDS: COREG 12.5 MG PO SCH ×2 (08:13→16:30)
[2022-11-20] MEDS: DEMADEX 20 MG PO SCH ×2 (09:07→21:35)
[2022-11-20] MEDS: Cordarone 200 MG PO SCH ×2 (09:08→21:35)
[2022-11-20] MEDS: Lanoxin 0.125MG TABLET PO SCH (09:08)
[2022-11-20] MEDS: ROCEPHIN 1 Gm-D5w 50 ml Bag** 1 G/50 ML IVPB IV SCH (09:09)
[2022-11-20] MEDS: ZYVOX PO SCH ×2 (11:19→21:35)
[2022-11-20] MEDS: JANTOVEN PO SCH (16:28)
[2022-11-20] MEDS: Coumadin 3 MG PO SCH (16:29)
[2022-11-21 05:13] LABS: BASOPHIL % 0.9 % (0.0-0.4); Basophil (Absolute #) 0.06 x10^3/uL (0-0.4); Eosinophil % 2.7 % (0.00-5.0); Eosinophil (Absolute #) 0.18 x10^3/uL (0-0.5); Hematocrit 34.5 % (35-47); Hemoglobin 11.1 g/dL (12.0-16.0); IMMATURE GRAN # 0.03 x10^3u/L (0.00-0.03); IMMATURE GRAN % 0.4 % (0.00-0.4); Lymphocyte (Absolute #) 1.19 x10^3/uL (1.0-4.6); Lymphocytes % 17.8 % (24.0-44.0); Mean Cell Volume 98.3 fL (78-100); Mean Corpuscular Hemoglobin 31.6 pg (26-32); Mean Corpuscular Hgb Concent. 32.2 g/dL (32-36); Mean Platelet Volume 10.9 fL (7.5-11.0); Monocyte (Absolute #) 0.92 x10^3/uL (0.0-1.3); Monocytes % 13.8 % (0.0-12.0); Neutrophil % 64.4 % (36.0-66.0); Platelet Count 155 x10^3/uL (150-450); Red Blood Count 3.51 x10^6/uL (4.1-5.4); Red Cell Distribution Width 13.4 % (11.5-14.0); White Blood Count 6.7 x10^3/uL (4.0-10.5)
[2022-11-21] MEDS: Advair Hfa 115/21 Common canister IH SCH ×2 (05:15→19:52)
[2022-11-21] MEDS: Sodium Chloride 0.9% 1000 ML 1,000 ML IV SCH (05:24)
[2022-11-21 05:46] LABS: ANION GAP 10.7 MEQ/L (5-15); BLOOD UREA NITROGEN 18 mg/dL (7-17); CHLORIDE 99 mmol/L (98-107); Calcium 8.1 mg/dL (8.4-10.2); Carbon Dioxide 28 mmol/L (22-30); Creatinine 1 0.74 mg/dL (0.52-1.04); EST GLOMERULAR FILTRATION RATE > 60.0 ML/MIN; Glucose 96 mg/dL (74-106); Potassium 3.5 mmol/L (3.5-5.1); SODIUM 135 mmol/L (137-145)
[2022-11-21] MEDS: COREG 12.5 MG PO SCH (08:11)
[2022-11-21] MEDS: DEMADEX 20 MG PO SCH ×2 (09:17→21:36)
[2022-11-21] MEDS: Lanoxin 0.125MG TABLET PO SCH (09:17)
[2022-11-21] MEDS: ZYVOX PO SCH ×2 (09:18→21:36)
[2022-11-21] MEDS: Cordarone 200 MG PO SCH ×2 (09:19→21:35)
--- NOTE | 2022-11-21 13:15 | PCM.NOTE ---
Date and Time: 11/21/22 1312 Subjective Assessment: Patient has been feeling weak and dizzy for several weeks with near syncope /falls and has required previous admission to hospital. This time admitted with UTI and dizziness. Nurse held Coreg 12,5mg this morning with Pulse = 42. During PT ambulation today became symptomatic and bradycardic rate 53. (See PT note). Urine culture /sens showed resistance to Rocephin and was changed to Linezolid. C/O loss of appetite today.Patient is on Coumadin for chronic Afib. Last visit with Mainframe Analyst,Dr Huynh 10/10/22 plan Pacemaker and Defibrilater for November. Dr Jolley is covering Dr Huynh this and will plan proceedure this Thursday. [facility] accepts patient when bed becomes available. Objective Exam General Appearance: no apparent distress Neurologic Exam: alert, oriented x 3, cooperative, normal mood/affect Skin Exam: warm, dry, pale Neck Exam: normal inspection Respiratory Exam: lungs clear Cardiovascular Exam: bradycardia (50), irregular Gastrointestinal/Abdomen Exam: soft, normal bowel sounds (nontender) OBJECTIVE DATA Vital Signs: Vital Signs - 24 hr Temp Pulse Resp BP BP Pulse Ox 11/21/22 12:00 97.8 F 57 L 16 109/47 95 11/21/22 09:17 62 113/56 11/21/22 08:00 16 11/21/22 07:09 97.6 F 62 16 113/56 92 L 11/21/22 05:15 57 L 18 91 L 11/21/22 04:00 97.1 F 56 L 18 114/58 96 11/21/22 00:00 18 11/20/22 23:23 97.5 F 57 L 18 117/59 96 11/20/22 20:00 20 11/20/22 19:57 98.0 F 54 L 20 106/53 96 11/20/22 19:27 65 18 94 L 11/20/22 16:00 97.1 F 54 L 16 101/53 95 11/20/22 13:41 18 Pain Assessment - Last Documented Pain Intensity 0 Intake and Output: Intake & Output 11/19/22 11/20/22 11/21/22 11/22/22 11:59 11:59 11:59 11:59 Intake Total 820 2314 1460 Output Total 700 800 950 Balance 120 1514 510 Weight 100.1 kg 103.2 kg 103.2 kg Lab Results: Lab Results-Last 24 Hours 11/21/22 11/21/22 Range/Units 05:18 05:18 WBC 6.7 (4.0-10.5) x10^3/uL RBC 3.51 L (4.1-5.4) x10^6/uL Hgb 11.1 L (12.0-16.0) g/dL Hct 34.5 L (35-47) % MCV 98.3 (78-100) fL MCH 31.6 (26-32) pg MCHC 32.2 (32-36) g/dL RDW 13.4 (11.5-14.0) % Plt Count 155 (150-450) x10^3/uL MPV 10.9 (7.5-11.0) fL Gran % 64.4 (36.0-66.0) % Immature Gran % (Auto) 0.4 (0.00-0.4) % Nucleat RBC Rel Count 0.0 (0.00-0.1) % Eos # (Auto) 0.18 (0-0.5) x10^3/uL Immature Gran # (Auto) 0.03 (0.00-0.03) x10^3u/L Absolute Lymphs (auto) 1.19 (1.0-4.6) x10^3/uL Absolute Monos (auto) 0.92 (0.0-1.3) x10^3/uL Absolute Nucleated RBC 0.00 (0.00-0.01) x10^3u/L Lymphocytes % 17.8 L (24.0-44.0) % Monocytes % 13.8 H (0.0-12.0) % Eosinophils % 2.7 (0.00-5.0) % Basophils % 0.9 (0.0-0.4) % Absolute Granulocytes 4.30 (1.4-6.9) x10^3/uL Basophils # 0.06 (0-0.4) x10^3/uL Sodium 135 L (137-145) mmol/L Potassium 3.5 (3.5-5.1) mmol/L Chloride 99 (98-107) mmol/L Carbon Dioxide 28 (22-30) mmol/L Anion Gap 10.7 (5-15) MEQ/L BUN 18 H (7-17) mg/dL Creatinine 0.74 (0.52-1.04) mg/dL Estimated GFR > 60.0 ML/MIN Glucose 96 (74-106) mg/dL Calcium 8.1 L (8.4-10.2) mg/dL Radiology Exams: Radiology Procedures Category Date Time Status MRI BRAIN W/O CONTRAST [MRI] Routine Exams 11/19/22 18:58 Completed Multi-Disciplinary Progress Notes: Multi-Disciplinary Progress Notes 11/21/22 10:26 Case Management Note by Cora Patino ATTEMPTED TO REACH PT NEXT OF KIN DIANA TOMAS TO SEE IF SHE CAN TELL US WHEN PT WAS LAST SEEN BY CARDIOLOGY. NO ANSWER. 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 Initialized on 11/21/22 10:15 - END OF NOTE 11/21/22 09:58 Physical Therapy Note by Craig(L#[id number]),Tova PT. UP IN RECLINER UPON P.T. ARRIVAL TO ROOM. NO C/O PN, BUT DOES C/O GENERALLY NOT FEELING WELL TODAY AND NOTES INCREASED DIZZINESS AGAIN. PT. AGREEBABLE TO P.T. PT. PERFORMED SIT TO STAND CGA W/ ROLLATOR. IMMEDIATELY NOTED INCREASED DIZZINESS AND PT. WAS PALE IN COLOR. PT. ALSO REPORTED FEELING NAUSEOUS. NO C/O CHEST PN. PT. REPORTED SHE WOULD ATTEMPT TO WALK W/ ROLLATOR BUT DID NOT FEEL SHE "COULD GO VERY FAR." ASKED PT. TO SIT BACK DOWN; ENCOURAGED PURSED LIP BREATHING. BP 115/58; HR 43 BPM. RNELIZABET, IN ROOM FOR VITALS WELL. ELEVATED LES IN RECLINER. PT. ALERT AND ORIENTED BUT SOMEWHAT SLOW TO RESPOND AND STARING WHICH WAS NOT THE CASE @ [facility] YESTERDAY. SPOKE W/ CORA PATINO IN UTILIZATION REVIEW WELL AND SHE PLANS TO DISCUSS W/ DR. CONWAY. PT. IS AT RISK FOR FALLS IF DIZZY EPISODES OCCUR. WILL CONT. TO ATTEMPT P.T. TOLERATED. Initialized on 11/21/22 09:58 - END OF NOTE 11/21/22 09:47 Case Management Note by Gogo Moreno S/W PATIENT- SHE CONTINUES TO DENY ANY NEW NEEDS AT TIME OF DC. SHE PLANS TO RETURN HOME WITH HER DAUGHTER AND C AT TIME OF DC. NO OTHER NEEDS AT THIS TIME Initialized on 11/21/22 09:47 - END OF NOTE Assessment/Plan (1) Bradycardia Current Visit: Yes Status: Acute Code(s): R00.1 - BRADYCARDIA, UNSPECIFIED (2) Chronic a-fib Current Visit: Yes Status: Chronic Code(s): I48.20 - CHRONIC ATRIAL FIBRILLATION, UNSPECIFIED (3) Sick sinus syndrome Current Visit: Yes Status: Suspected Assessment & Plan: Transfer to [facility] to Hospitalist when bed is available. Mainframe Analyst covering Dr Huynh,Dr Jolley plans pacemaker/defibrilator. Code(s): I49.5 - SICK SINUS SYNDROME (4) Urinary tract infection Current Visit: Yes Status: Acute Assessment & Plan: initially treated with Rocephin -resistant now on Linezolid possibly causing decreased appetite Code(s): N39.0 - URINARY TRACT INFECTION, SITE NOT SPECIFIED
[2022-11-21 14:59] LABS: TSH, 3RD Generation 1.01 mIU/L (0.47-4.68)
[2022-11-21 17:24] LABS: INR 2.89 (0.8-3.0); PROTIME 29.1 SECONDS (9.4-12.5)
[2022-11-21] MEDS: JANTOVEN PO SCH (18:34)
[2022-11-21] MEDS: Coumadin 3 MG PO SCH (18:34)
[2022-11-21] MEDS: Coreg PO SCH (21:35)
[2022-11-21] MEDS ORDERED: COREG 12.5 MG PO SCH (22:00)
[2022-11-22 05:12] LABS: Absolute Neutrophil Ct (ANC) 5.37 x10^3/uL (1.4-6.9); Basophil (Absolute #) 0.08 x10^3/uL (0-0.4); Eosinophil % 2.7 % (0.00-5.0); Eosinophil (Absolute #) 0.22 x10^3/uL (0-0.5); Hematocrit 37.1 % (35-47); Hemoglobin 12.1 g/dL (12.0-16.0); IMMATURE GRAN # 0.04 x10^3u/L (0.00-0.03); IMMATURE GRAN % 0.5 % (0.00-0.4); Lymphocyte (Absolute #) 1.39 x10^3/uL (1.0-4.6); Lymphocytes % 16.9 % (24.0-44.0); Mean Cell Volume 99.2 fL (78-100); Mean Corpuscular Hemoglobin 32.4 pg (26-32); Mean Corpuscular Hgb Concent. 32.6 g/dL (32-36); Mean Platelet Volume 11.1 fL (7.5-11.0); Monocyte (Absolute #) 1.11 x10^3/uL (0.0-1.3); Monocytes % 13.5 % (0.0-12.0); Neutrophil % 65.4 % (36.0-66.0); Platelet Count 159 x10^3/uL (150-450); Red Blood Count 3.74 x10^6/uL (4.1-5.4); Red Cell Distribution Width 13.6 % (11.5-14.0); White Blood Count 8.2 x10^3/uL (4.0-10.5)
[2022-11-22 05:43] LABS: ALBUMIN 3.5 g/dL (3.5-5.0); ALKALINE PHOSPHATASE 80 U/L (38-126); ANION GAP 13.4 MEQ/L (5-15); BLOOD UREA NITROGEN 18 mg/dL (7-17); CHLORIDE 100 mmol/L (98-107); Calcium 8.3 mg/dL (8.4-10.2); Carbon Dioxide 27 mmol/L (22-30); Creatinine 1 0.73 mg/dL (0.52-1.04); EST GLOMERULAR FILTRATION RATE > 60.0 ML/MIN; Glucose 92 mg/dL (74-106); SGOT/AST 40 U/L (14-36); SGPT/ALT 18 U/L (0-35); SODIUM 136 mmol/L (137-145); Total Protein 6.7 g/dL (6.3-8.2)
[2022-11-22] MEDS: Advair Hfa 115/21 Common canister IH SCH ×2 (07:12→19:48)
[2022-11-22] MEDS: Zestril 20 MG PO SCH (11:13)
[2022-11-22] MEDS: Coreg PO SCH (11:13)
[2022-11-22] MEDS: ZYVOX PO SCH ×2 (11:14→21:16)
[2022-11-22] MEDS: DEMADEX 20 MG PO SCH ×2 (11:16→19:31)
[2022-11-22] MEDS: Cordarone 200 MG PO SCH ×2 (11:52→21:40)
[2022-11-22] MEDS: JANTOVEN PO SCH (19:01)
[2022-11-22] MEDS: Coumadin 3 MG PO SCH (19:01)
[2022-11-23 04:51] LABS: Absolute Neutrophil Ct (ANC) 4.44 x10^3/uL (1.4-6.9); Basophil (Absolute #) 0.07 x10^3/uL (0-0.4); Eosinophil % 3.3 % (0.00-5.0); Eosinophil (Absolute #) 0.23 x10^3/uL (0-0.5); Hematocrit 33.5 % (35-47); IMMATURE GRAN # 0.04 x10^3u/L (0.00-0.03); IMMATURE GRAN % 0.6 % (0.00-0.4); Lymphocyte (Absolute #) 1.38 x10^3/uL (1.0-4.6); Lymphocytes % 19.7 % (24.0-44.0); Mean Cell Volume 96.5 fL (78-100); Mean Corpuscular Hemoglobin 31.7 pg (26-32); Mean Corpuscular Hgb Concent. 32.8 g/dL (32-36); Mean Platelet Volume 10.6 fL (7.5-11.0); Monocyte (Absolute #) 0.84 x10^3/uL (0.0-1.3); Neutrophil % 63.4 % (36.0-66.0); Platelet Count 176 x10^3/uL (150-450); Red Blood Count 3.47 x10^6/uL (4.1-5.4); Red Cell Distribution Width 13.3 % (11.5-14.0)
[2022-11-23 05:06] LABS: ALBUMIN 3.3 g/dL (3.5-5.0); ALKALINE PHOSPHATASE 84 U/L (38-126); ANION GAP 11.4 MEQ/L (5-15); BLOOD UREA NITROGEN 17 mg/dL (7-17); CHLORIDE 101 mmol/L (98-107); Calcium 8.5 mg/dL (8.4-10.2); Carbon Dioxide 29 mmol/L (22-30); Creatinine 1 0.79 mg/dL (0.52-1.04); EST GLOMERULAR FILTRATION RATE > 60.0 ML/MIN; Glucose 94 mg/dL (74-106); INR 2.58 (0.8-3.0); PROTIME 26.2 SECONDS (9.4-12.5); Potassium 3.2 mmol/L (3.5-5.1); SGOT/AST 29 U/L (14-36); SGPT/ALT 18 U/L (0-35); SODIUM 139 mmol/L (137-145); Total Protein 6.5 g/dL (6.3-8.2)
[2022-11-23] MEDS: Advair Hfa 115/21 Common canister IH SCH ×2 (07:46→19:47)
[2022-11-23] MEDS: Zestril 20 MG PO SCH (09:44)
[2022-11-23] MEDS: DEMADEX 20 MG PO SCH ×2 (09:44→22:31)
[2022-11-23] MEDS: ZYVOX PO SCH ×2 (09:45→22:31)
[2022-11-23] MEDS: Cordarone 200 MG PO SCH ×2 (09:45→22:31)
[2022-11-23] MEDS ORDERED: Lasix 40 MG/4 ML IV ONE (12:27)
[2022-11-23] MEDS ORDERED: Klor Con PO ONE (12:29)
[2022-11-23] MEDS: ENOXAPARIN SODIUM SQ SCH (13:22)
[2022-11-23] MEDS: Sodium Chloride 0.9% 1000 ML 1,000 ML IV SCH ×2 (22:53→22:54)
[2022-11-24] MEDS: Sodium Chloride 0.9% 1000 ML 1,000 ML IV SCH (00:48)
[2022-11-24 05:01] LABS: BASOPHIL % 1.2 % (0.0-0.4); Basophil (Absolute #) 0.08 x10^3/uL (0-0.4); Eosinophil % 3.9 % (0.00-5.0); Eosinophil (Absolute #) 0.26 x10^3/uL (0-0.5); Hematocrit 32.2 % (35-47); Hemoglobin 10.6 g/dL (12.0-16.0); IMMATURE GRAN # 0.02 x10^3u/L (0.00-0.03); IMMATURE GRAN % 0.3 % (0.00-0.4); Lymphocytes % 22.3 % (24.0-44.0); Mean Cell Volume 96.1 fL (78-100); Mean Corpuscular Hemoglobin 31.6 pg (26-32); Mean Corpuscular Hgb Concent. 32.9 g/dL (32-36); Mean Platelet Volume 10.6 fL (7.5-11.0); Monocyte (Absolute #) 0.66 x10^3/uL (0.0-1.3); Monocytes % 9.8 % (0.0-12.0); Neutrophil % 62.5 % (36.0-66.0); Platelet Count 187 x10^3/uL (150-450); Red Blood Count 3.35 x10^6/uL (4.1-5.4); Red Cell Distribution Width 13.7 % (11.5-14.0); White Blood Count 6.7 x10^3/uL (4.0-10.5)
[2022-11-24 05:07] LABS: ALBUMIN 3.3 g/dL (3.5-5.0); ALKALINE PHOSPHATASE 90 U/L (38-126); BLOOD UREA NITROGEN 20 mg/dL (7-17); CHLORIDE 102 mmol/L (98-107); Calcium 8.4 mg/dL (8.4-10.2); Carbon Dioxide 28 mmol/L (22-30); Creatinine 1 0.88 mg/dL (0.52-1.04); EST GLOMERULAR FILTRATION RATE > 60.0 ML/MIN; Glucose 90 mg/dL (74-106); SGOT/AST 29 U/L (14-36); SGPT/ALT 18 U/L (0-35); SODIUM 138 mmol/L (137-145); Total Protein 6.3 g/dL (6.3-8.2)
[2022-11-24 05:09] LABS: Potassium 3.5 mmol/L (3.5-5.1)
[2022-11-24 05:14] LABS: ANION GAP 11.5 MEQ/L (5-15)
[2022-11-24] MEDS: Advair Hfa 115/21 Common canister IH SCH (07:06)
[2022-11-24] MEDS: Cordarone 200 MG PO SCH (09:32)
[2022-11-24] MEDS: Zestril 20 MG PO SCH (09:32)
[2022-11-24] MEDS: DEMADEX 20 MG PO SCH (09:33)
[2022-11-24] MEDS: ZYVOX PO SCH (09:33)
[2022-11-24 11:37] VITALS: BP 142/63; PULSE 53; O2SAT 98
[2022-11-24] MEDS: Coumadin 3 MG PO SCH (14:40)
[2022-11-24] MEDS: JANTOVEN PO SCH (14:41)
[2022-11-24] MEDS: ENOXAPARIN SODIUM SQ SCH (14:43)
--- NOTE | 2022-12-22 23:03 | PCM.HP ---
History of Present Illness - Chief Complaint Chief Complaint: SYNCOPE, DIZZINESS, UTI History of Present Illness: Patient is an 82-year-old female presents to our ED for evaluation of blood pressure and dizziness. Patient sees a home health nurse for evaluation and treatment of right lower extremity wounds. Patient's blood pressure was checked and was advised that it was low. Patient advised RN that she had been feeling dizzy. Patient was therefore sent to our ED for an evaluation. Patient has a history of atrial fibrillation. Patient on Coumadin. Patient does not know last INR level or when it was last checked. patient has ongoing dizziness. Dizziness is not provoked by head motion. No history of the same. Symptoms are moderate in intensity. No specific worsening or improving factors. Patient voices no other complaints or concerns at this time. - Review of Systems Constitutional: Fatigue, Weakness, No Fever, No Chills Eyes: No Symptoms Ears, Nose, & Throat: No Symptoms Respiratory: No Cough, No Short Of Breath Cardiac: No Chest Pain, No Edema, No Syncope Abdominal/Gastrointestinal: No Abdominal Pain, No Nausea, No Vomiting, No Diarrhea Genitourinary Symptoms: No Dysuria Musculoskeletal: No Back Pain, No Neck Pain Skin: No Rash Neurological: No Dizziness, No Focal Weakness, No Sensory Changes Psychological: No Symptoms Endocrine: No Symptoms Hematologic/Lymphatic: No Symptoms Immunological/Allergic: No Symptoms Medications & Allergies Home Medications: Home Medication List Amiodarone HCl 200 mg [Cordarone 200 MG] 200 mg PO DAILY 11/18/22 [History Confirmed 12/06/22] Cholecalciferol (Vitamin D3) [Vitamin D] 5,000 units PO DAILY 11/18/22 [History Confirmed 12/06/22] Fluticasone/Umeclidin/Vilanter [Trelegy Ellipta 100-62.5-25] 1 puff IH DAILY 11/18/22 [History Confirmed 12/06/22] Carvedilol 12.5 mg [Coreg 12.5 mg] 12.5 mg PO BID 12/05/22 [History Confirmed 12/06/22] Digoxin 0.125 mg Tablet [Lanoxin 0.125MG TABLET] 0.125 mg PO DAILY 12/05/22 [History Confirmed 12/06/22] Furosemide 20 mg [Lasix 20 mg] 40 mg PO DAILY 12/05/22 [History Confirmed 12/06/22] Linagliptin [Tradjenta] 1 tablet PO DAILY 12/05/22 [History Confirmed 12/05/22] Magnesium Oxide 400 mg [Mag-Ox 400] 400 mg PO DAILY 12/05/22 [History Conf irmed 12/06/22] Multivitamin 1 tablet PO DAILY 12/05/22 [History Confirmed 12/06/22] Potassium Chloride 20 meq PO DAILY 12/05/22 [History Confirmed 12/06/22] Sacubitril/Valsartan [Entresto 24 mg-26 mg Tablet] 24 - 26 mg PO DAILY 12/05/22 [History Confirmed 12/06/22] Warfarin Sodium 3 mg PO DAILY 12/05/22 [History Confirmed 12/08/22] Ertapenem Sodium [Invanz ] 1,000 g IV DAILY 6 Days 12/08/22 [Rx] Allergies/Adverse Reactions: Allergies Allergy/AdvReac Type Severity Reaction Status Date / Time No Known Drug Allergies Allergy Verified 12/05/22 14:59 - Past Medical History Past Medical History: Yes Neurological History: No Pertinent History ENT History: No Pertinent History Cardiac History: Arrhythmia, Congestive Heart Failure, Hypertension Respiratory History: No Pertinent History Endocrine Medical History: No Pertinent History Musculoskelatal History: Arthritis GI Medical History: No Pertinent History, Polyps History: No Pertinent History Pyscho-Social History: No Pertinent History Reproductive Disorders: No Pertinent History Comment: scheduled for PPM/ defib 12/03/[address] Harden - Past Surgical History Past Surgical History: Yes Neuro Surgical History: No Pertinent History Cardiac History: No Pertinent History Respiratory Surgery: No Pertinent History GI Surgical History: Cholecystectomy Genitourinary Surgical Hx: No Pertinent History Musculskeletal Surgical Hx: Joint Replacement Female Surgical History: Hysterectomy Other Surgical History: lucy knees - Social History Smoking Status: Never smoker Exposure to second hand smoke: No Alcohol: None Drug Use: none - Physical Exam General Appearance: no apparent distress, alert Neurologic Exam: alert, cooperative, normal mood/affect, sensation nml, No motor deficits Eye Exam: PERRL/EOMI, eyes nml inspection Ears, Nose, Throat Exam: normal ENT inspection, pharynx normal, moist mucous membranes Neck Exam: normal inspection, non-tender, supple, full range of motion Respiratory Exam: normal breath sounds, lungs clear, No respiratory distress Cardiovascular Exam: normal heart sounds, normal peripheral pulses, irregular Gastrointestinal/Abdomen Exam: soft, normal bowel sounds, No tenderness, No mass Back Exam: normal inspection, normal range of motion, No CVA tenderness, No vertebral tenderness Extremity Exam: normal inspection, normal range of motion, pelvis stable Skin Exam: normal color, warm, dry, No rash Lymphatic Exam: No adenopathy Results - Labs Lab/Micro Results: Microbiology 11/18/22 11:04 Urine Culture - Final Urine, Void Staphylococcus Epidermidis Assessment/Plan (1) Urinary tract infection Status: Acute Assessment & Plan: iv antibiotics Code(s): N39.0 - URINARY TRACT INFECTION, SITE NOT SPECIFIED (2) Weakness Status: Acute Assessment & Plan: further evaluation Code(s): R53.1 - WEAKNESS (3) Bradycardia Status: Resolved Code(s): R00.1 - BRADYCARDIA, UNSPECIFIED (4) Dizziness Status: Resolved Assessment & Plan: monitor and further evaluation. Code(s): R42 - DIZZINESS AND GIDDINESS
--- NOTE | 2023-01-02 11:07 | PCM.DS ---
Discharge Summary Date of Admission: 11/19/22 08:35 Date of Discharge: 11/24/22 late entry Admitting Physician: STELLA DE LA FUENTE Primary Care Provider: TASHA CONWAY DO Allergies Allergies No Known Drug Allergies Allergy (Verified 12/05/22 14:59) Hospital Summary - Hospital Course Hospital Course: Patient with lonstanding Cardiac Hx ,Afib on Coumadin was admitted through ER to [facility] with UTI and C/O ongoing spells of dizziness and generalized weakness. Has had syncopal episodes at home. Is scheduled for pacemaker ,defibrillator for next month at [facility] with her Director Clinical Data Dr Huynh but with this admit ,Director Clinical Data will move up the date. Betablocker and Dig were discontinued per Cardiology. Patient will benefit from Rehab stay while awaiting Pacemaker. She is at high risk of falling and is at home alone during the day. Lives with her daughter who works full service supervisor. Transfer to Swing Bed status. Monitor PT/INR. - Vitals & Intake/Output Vital Signs: Vital Signs Temperature 97.5 F 11/24/22 11:00 Pulse Rate 53 L 11/24/22 11:00 Respiratory Rate 17 11/24/22 12:00 Blood Pressure 142/63 11/24/22 11:00 O2 Sat by Pulse Oximetry 98 11/24/22 11:00 - Lab Result Diagrams: 11/24/22 04:40 11/24/22 04:40 Micro Results-Entire Visit: Microbiology 11/18/22 11:04 Urine Culture - Final Urine, Void Staphylococcus Epidermidis - Procedures and Test Procedures and Tests throughout Hospitalization: Therapy Orders & Screens 11/18/22 17:28 EKG [id number],QAMX3,PRN Comment: 11/18/22 18:56 EKG ONCE Comment: Diagnosis: Dizziness 11/19/22 05:00 EKG ONCE Comment: Diagnosis: Dizziness 11/19/22 11:10 Respiratory Therapy Assessment DAILY Comment: Diagnosis: Dizziness, uti 11/20/22 05:00 EKG ONCE Comment: Diagnosis: Dizziness 11/20/22 07:12 PT Eval & Treat (MD Order) ONCE Reason for Eval:: wekness, dizziness Diagnosis: Dizziness, uti 11/21/22 05:00 EKG ONCE Comment: Diagnosis: Dizziness Discharge Exam General Appearance: no apparent distress Neurologic Exam: alert, oriented x 3 (fatiued), normal mood/affect, nml cerebellar function Eye Exam: eyes nml inspection Ears, Nose, Throat Exam: normal ENT inspection Neck Exam: normal inspection Respiratory Exam: diminished breath sounds (bases) Cardiovascular Exam: bradycardia, irregular Gastrointestinal/Abdomen Exam: soft, normal bowel sounds (nontender) Extremity Exam: normal range of motion, other (no pitting edema) Skin Exam: warm, dry, pale Final Diagnosis/Problem List - Final Discharge Diagnosis/Problem (1) Bradycardia Status: Chronic Assessment & Plan: improved off Dig and Coreg dose monitored per Director Clinical Data (DR Jolley covering for Dr Huynh) Code(s): R00.1 - BRADYCARDIA, UNSPECIFIED (2) Chronic a-fib Status: Chronic Code(s): I48.20 - CHRONIC ATRIAL FIBRILLATION, UNSPECIFIED (3) Sick sinus syndrome Status: Suspected Code(s): I49.5 - SICK SINUS SYNDROME (4) Urinary tract infection Status: Acute Assessment & Plan: see Ryann,lainey Code(s): N39.0 - URINARY TRACT INFECTION, SITE NOT SPECIFIED (5) Risk for falls Status: Acute Code(s): Z91.81 - HISTORY OF FALLING (6) Physical deconditioning Status: Acute Assessment & Plan: Rehab needed Code(s): R53.81 - OTHER MALAISE - Discharge Disposition: Swing Bed @ [facility] Condition: Stable Prescriptions: No Action Amiodarone HCl 200 mg [Cordarone 200 MG] 200 mg PO DAILY Cholecalciferol (Vitamin D3) [Vitamin D] 5,000 units PO DAILY Fluticasone/Umeclidin/Vilanter [Trelegy Ellipta 100-62.5-25] 1 puff IH DAILY Carvedilol 12.5 mg [Coreg 12.5 mg] 12.5 mg PO BID Digoxin 0.125 mg Tablet [Lanoxin 0.125MG TABLET] 0.125 mg PO DAILY Warfarin Sodium 3 mg PO DAILY Potassium Chloride 20 meq PO DAILY Multivitamin 1 tablet PO DAILY Magnesium Oxide 400 mg [Mag-Ox 400] 400 mg PO DAILY Linagliptin [Tradjenta] 1 tablet PO DAILY Furosemide 20 mg [Lasix 20 mg] 40 mg PO DAILY Sacubitril/Valsartan [Entresto 24 mg-26 mg Tablet] 24 - 26 mg PO DAILY Ertapenem Sodium [Invanz ] 1,000 g IV DAILY 6 Days Instructions: Urinary Tract Infection, Adult (DC), Preventing Falls in Older Adults, Dealing with Dizziness from the Drugs You Take Additional Instructions: WE WILL NOTIFY [facility] OF DISCHARGE. THEY SHOULD BE CONTACTING YOU TO RESUME SERVICES. (THEIR # [phone]) Follow up with: BAUTISTA HUYNH [CONSULTING PHYSICIAN] - TASHA CONWAY DO [Primary Care Provider] -
== END 2022-11-24 15:30 | disposition swing bed (61) | DRG 309 ==
LOC: ED 10:18 → MED SURG 17:27 → OBSVTOIN 11-19 08:35
PROVIDERS: ADMIT Family Medicine; ATTEND Family Medicine
DX: R00.1 Bradycardia, unspecified (principal); I48.20 Chronic atrial fibrillation, unspecified; N39.0 Urinary tract infection, site not specified; R42 Dizziness and giddiness; I11.0 Hypertensive heart disease with heart failure; I50.9 Heart failure, unspecified; R60.0 Localized edema; I95.9 Hypotension, unspecified; Z79.01 Long term (current) use of anticoagulants; Z79.899 Other long term (current) drug therapy; Z20.828 Contact with and (suspected) exposure to other viral communicable diseases
CPT/HCPCS: 0241U; 36000; 36415; 51702; 70450; 70496; 70498; 70551; 80048; 80053; 80061; 80162; 81001; 82607; 82947; 83721; 83735; 83880; 84443; 84484; 85025; 85610; 85730; 87077; 87086; 87186; 93005; 93041; 93268; 94640; 94760; 96365; 97110; 97161; 97530; 99285; G0378; J0696; J1650; J1940; A9270-GY

== ENCOUNTER 2022-11-24 15:30 | Inpatient (IN) | payer MEDICARE, OTHER ==
[2022-11-24] MEDS ORDERED: Aplisol ID ONE (15:48)
[2022-11-24] MEDS ORDERED: Zofran 4 MG/2 ML VIAL IV PRN (15:48)
[2022-11-24] MEDS ORDERED: Senokot-S Tablet PO PRN (15:48)
[2022-11-24] MEDS ORDERED: MILK OF MAGNESIA 30 ML PO PRN (15:48)
[2022-11-24] MEDS ORDERED: MAALOX ES 30 ML UNIT DOSE PO PRN (15:48)
[2022-11-24] MEDS: Advair Hfa 115/21 Common canister IH SCH (17:35)
[2022-11-24] MEDS: Coumadin 3 MG PO SCH (17:48)
[2022-11-24] MEDS: JANTOVEN PO SCH (17:49)
[2022-11-24] MEDS: DEMADEX 20 MG PO SCH (21:38)
[2022-11-24] MEDS: Cordarone 200 MG PO SCH (21:38)
[2022-11-24] MEDS: ZYVOX PO SCH (21:39)
[2022-11-24] MEDS ORDERED: Coreg PO SCH (22:00)
[2022-11-25] MEDS: Advair Hfa 115/21 Common canister IH SCH ×2 (06:58→19:15)
[2022-11-25] MEDS: DEMADEX 20 MG PO SCH ×2 (09:29→23:03)
[2022-11-25] MEDS: Cordarone 200 MG PO SCH ×2 (09:29→23:02)
[2022-11-25] MEDS: ZYVOX PO SCH ×2 (09:33→23:04)
[2022-11-25] MEDS: Zestril 20 MG PO SCH (09:33)
[2022-11-25] MEDS ORDERED: Lanoxin 0.125MG TABLET PO SCH (10:00)
--- NOTE | 2022-11-25 11:41 | PCM.HP.ADD ---
Addendum to History & Physical - History & Physical Addendum Addendum to History & Physical: This certifies that the History & Physical in the electronic chart reflects the current health status of the patient. If there are changes in the H&P these changes/exceptions are listed as follows. 1) Bradycardia and Afib awaiting Pacemaker and Defibrillater placement at [place] with Dr May- Devin change - Hold Coreg and Digoxin with goal Heart rate =70s 2) Near syncope and falls - Rehab stay needed. Risk of fall.
[2022-11-25] MEDS: JANTOVEN PO SCH (18:57)
[2022-11-25] MEDS: Coumadin 3 MG PO SCH (18:57)
[2022-11-25] MEDS: TYLENOL 325 MG PO PRN (19:35)
[2022-11-26 04:52] LABS: INR 2.07 (0.8-3.0); PROTIME 21.4 SECONDS (9.4-12.5)
[2022-11-26] MEDS: Advair Hfa 115/21 Common canister IH SCH ×2 (07:35→19:00)
[2022-11-26] MEDS: Cordarone 200 MG PO SCH ×2 (10:50→20:18)
[2022-11-26] MEDS: Zestril 20 MG PO SCH (10:51)
[2022-11-26] MEDS: DEMADEX 20 MG PO SCH ×2 (10:51→20:19)
[2022-11-26] MEDS: ZYVOX PO SCH ×2 (10:52→20:18)
[2022-11-26] MEDS: Coumadin 3 MG PO SCH (18:51)
[2022-11-26] MEDS: JANTOVEN PO SCH (18:52)
[2022-11-27] MEDS: Advair Hfa 115/21 Common canister IH SCH ×2 (07:04→19:08)
[2022-11-27] MEDS: Cordarone 200 MG PO SCH ×2 (10:32→21:06)
[2022-11-27] MEDS: DEMADEX 20 MG PO SCH ×2 (10:32→21:07)
[2022-11-27] MEDS: Zestril 20 MG PO SCH (10:32)
[2022-11-27] MEDS: ZYVOX PO SCH ×2 (10:32→21:07)
[2022-11-27] MEDS: Coumadin 3 MG PO SCH (18:07)
[2022-11-27] MEDS: JANTOVEN PO SCH (18:07)
[2022-11-28] MEDS: TYLENOL 325 MG PO PRN ×3 (04:37→21:32)
[2022-11-28] MEDS: Advair Hfa 115/21 Common canister IH SCH ×2 (07:46→19:23)
[2022-11-28] MEDS: DEMADEX 20 MG PO SCH ×2 (09:37→21:26)
[2022-11-28] MEDS: Zestril 20 MG PO SCH (09:37)
[2022-11-28] MEDS: Cordarone 200 MG PO SCH ×2 (09:39→21:26)
[2022-11-28] MEDS: ZYVOX PO SCH ×2 (09:39→21:27)
[2022-11-28] MEDS: Coumadin 3 MG PO SCH (17:35)
[2022-11-28] MEDS: JANTOVEN PO SCH (17:35)
--- NOTE | 2022-11-28 17:59 | PCM.NOTE ---
Date and Time: 11/28/221753 Subjective Assessment: Patient states feeling stronger . Heart palpitations with PT but no near syncopal episodes since stopped Coreg and dig.per Dr May. Objective Exam General Appearance: no apparent distress Neurologic Exam: alert, oriented x 3, cooperative, normal mood/affect Skin Exam: warm, dry, pale Respiratory Exam: normal breath sounds Cardiovascular Exam: irregular (rate 60s) Gastrointestinal/Abdomen Exam: soft Extremity Exam: normal inspection OBJECTIVE DATA Vital Signs: Vital Signs - 24 hr Temp Pulse Resp BP Pulse Ox 11/28/22 07:50 62 16 96 11/28/22 06:36 97.6 F 63 16 161/70 94 L 11/27/22 19:12 73 18 98 11/27/22 19:00 97.1 F 60 18 144/66 97 Pain Assessment - Last Documented Pain Intensity 4 Pain Scale Used 0-10 Pain Scale Intake and Output: Intake & Output 11/26/22 11/27/22 11/28/22 11/29/22 11:59 11:59 11:59 11:59 Intake Total 120 120 360 Output Total 1350 100 Balance -1230 20 360 Weight 103 kg 104.2 kg Multi-Disciplinary Progress Notes: Multi-Disciplinary Progress Notes 11/28/22 12:56 Occupational Therapy Note by Alexei(L#[id number]),Tova GUADALUPE SEEN THIS AM WHILE SITTING UP IN BEDSIDE CHAIR. SHE COMPLAINED THAT HER LEFT LE WAS STILL HURTING HOWEVER THE ICE SHE HAD ON IT SEEMED TO EASE THE PAIN SOMEWHAT. SHE PERFORMED BUE STRENGTHENING EXERCISES WITH 1# DB 20-25 REPS X 12 DIFFERENT SETS WITH SHORT RESTS IN BETWEEN EACH SET. VERBAL CUES NEEDED FOR PROPER BREATHING TECHQNIQUES. Initialized on 11/28/22 12:56 - END OF NOTE 11/28/22 12:36 Nutrition Note by Tracey Noriega F/u Note: house regular diet con't with 75-100% po intake. No recent labs/weight available. Note pt 154%IBW. goal #2)maintain po intake >=75% Will monitor and f/u prn. T.LILLIE Noriega Initialized on 11/28/22 12:36 - END OF NOTE 11/28/22 07:22 Pharmacy Note by Parmjit Ruggiero Today is day 9 of Zyvox oral. Please review if this is still needed. Initialized on 11/28/22 07:22 - END OF NOTE Assessment/Plan (1) Atrial fibrillation Current Visit: No Status: Chronic Code(s): I48.91 - UNSPECIFIED ATRIAL FIBRILLATION (2) Dizziness Current Visit: No Status: Resolved Code(s): R42 - DIZZINESS AND GIDDINESS (3) Sick sinus syndrome Current Visit: No Status: Suspected Assessment & Plan: Dr May plans Pace maker and defibrillator placement November ? 4th Code(s): I49.5 - SICK SINUS SYNDROME
[2022-11-29] MEDS: Advair Hfa 115/21 Common canister IH SCH ×2 (07:18→20:35)
[2022-11-29] MEDS: Cordarone 200 MG PO SCH ×2 (09:15→22:07)
[2022-11-29] MEDS: DEMADEX 20 MG PO SCH ×2 (09:15→22:08)
[2022-11-29] MEDS: Zestril 20 MG PO SCH (09:15)
[2022-11-29] MEDS: Coumadin 3 MG PO SCH (17:18)
[2022-11-29] MEDS: JANTOVEN PO SCH (17:18)
[2022-11-30 06:22] LABS: INR 3.87 (0.8-3.0); PROTIME 38.2 SECONDS (9.4-12.5)
[2022-11-30] MEDS: Advair Hfa 115/21 Common canister IH SCH ×2 (08:44→18:30)
[2022-11-30] MEDS: Zestril 20 MG PO SCH (09:24)
[2022-11-30] MEDS: DEMADEX 20 MG PO SCH ×2 (09:24→22:11)
[2022-11-30] MEDS: Cordarone 200 MG PO SCH ×2 (09:25→22:11)
[2022-11-30] MEDS: TYLENOL 325 MG PO PRN (13:18)
[2022-11-30] MEDS: Coumadin 3 MG PO SCH (18:23)
[2022-12-01 05:10] LABS: PROTIME 49.7 SECONDS (9.4-12.5)
[2022-12-01 05:23] LABS: INR 5.15 (0.8-3.0)
[2022-12-01] MEDS: Advair Hfa 115/21 Common canister IH SCH ×2 (06:58→19:34)
[2022-12-01] MEDS: Zestril 20 MG PO SCH (10:26)
[2022-12-01] MEDS: Cordarone 200 MG PO SCH ×2 (10:26→21:39)
[2022-12-01] MEDS: DEMADEX 20 MG PO SCH ×2 (10:27→21:39)
[2022-12-02] MEDS ORDERED: DUONEB 0.5-3 MG/3 ml Neb IH ONE (01:02)
[2022-12-02] MEDS ORDERED: DUONEB 0.5-3 MG/3 ml Neb IH PRN (01:05)
[2022-12-02 05:44] LABS: PROTIME 56.2 SECONDS (9.4-12.5)
[2022-12-02 05:45] LABS: INR 5.88 (0.8-3.0)
[2022-12-02] MEDS ORDERED: PHARMACY DOSING REQUEST MC ONE (05:47)
[2022-12-02 05:51] LABS: Absolute Neutrophil Ct (ANC) 4.33 x10^3/uL (1.4-6.9); BASOPHIL % 1.3 % (0.0-0.4); Basophil (Absolute #) 0.09 x10^3/uL (0-0.4); Eosinophil % 2.3 % (0.00-5.0); Eosinophil (Absolute #) 0.16 x10^3/uL (0-0.5); Hematocrit 31.1 % (35-47); IMMATURE GRAN # 0.01 x10^3u/L (0.00-0.03); IMMATURE GRAN % 0.1 % (0.00-0.4); Lymphocytes % 20.3 % (24.0-44.0); Mean Cell Volume 98.4 fL (78-100); Mean Corpuscular Hemoglobin 31.6 pg (26-32); Mean Corpuscular Hgb Concent. 32.2 g/dL (32-36); Mean Platelet Volume 10.2 fL (7.5-11.0); Monocytes % 13.1 % (0.0-12.0); Neutrophil % 62.9 % (36.0-66.0); Platelet Count 117 x10^3/uL (150-450); Red Blood Count 3.16 x10^6/uL (4.1-5.4); Red Cell Distribution Width 13.6 % (11.5-14.0); White Blood Count 6.9 x10^3/uL (4.0-10.5)
[2022-12-02] MEDS ORDERED: Vitamin K 1 MG IM ONE (05:53)
[2022-12-02 06:37] LABS: Appearance Cloudy (Clear); Bacteria Many /HPF (None Seen); Bilirubin Negative (Negative); Blood Negative (Negative); Epithelial Cells None Seen /HPF (None Seen); Glucose, Urine Negative (Negative); Hyaline Casts NONE SEEN /LPF (0-2); Ketones Negative (Negative); Leukocyte Esterase Small (Negative); Nitrite Positive (Negative); Protein,Urine Dip Negative (Negative); Specific Gravity 1.015 (1.005-1.030); Urobilinogen 0.2 mg/dL (0.2)
[2022-12-02 06:43] LABS: ADD URINE CULTURE? YES (NO)
[2022-12-02] MEDS: Advair Hfa 115/21 Common canister IH SCH ×2 (07:01→19:10)
[2022-12-02] MEDS ORDERED: Vitamin K 10 MG/ML PO ONE ×2 (07:15→17:00)
[2022-12-02] MEDS: JANTOVEN PO SCH (08:26)
[2022-12-02 08:34] LABS: ALBUMIN 3.3 g/dL (3.5-5.0); ALKALINE PHOSPHATASE 90 U/L (38-126); ANION GAP 10.7 MEQ/L (5-15); BLOOD UREA NITROGEN 19 mg/dL (7-17); CHLORIDE 102 mmol/L (98-107); Calcium 8.6 mg/dL (8.4-10.2); Carbon Dioxide 30 mmol/L (22-30); Creatinine 1 0.73 mg/dL (0.52-1.04); EST GLOMERULAR FILTRATION RATE > 60.0 ML/MIN; Glucose 86 mg/dL (74-106); NT PRO BNPII 2020 pg/mL (<300); Potassium 3.5 mmol/L (3.5-5.1); SGOT/AST 33 U/L (14-36); SGPT/ALT 20 U/L (0-35); SODIUM 139 mmol/L (137-145); Total Protein 6.4 g/dL (6.3-8.2)
[2022-12-02] MEDS ORDERED: Lasix 40 MG PO ONE (10:00)
[2022-12-02] MEDS ORDERED: Klor Con PO ONE (10:00)
[2022-12-02] MEDS: Zestril 20 MG PO SCH (10:20)
[2022-12-02] MEDS: Cordarone 200 MG PO SCH ×2 (10:21→22:06)
[2022-12-02] MEDS: ZYVOX PO SCH ×2 (10:21→22:06)
[2022-12-02 16:26] LABS: INR 3.89 (0.8-3.0); PROTIME 38.3 SECONDS (9.4-12.5)
[2022-12-02] MEDS: DEMADEX 20 MG PO SCH (17:40)
[2022-12-02] MEDS ORDERED: Tessalon Perles 100 MG PO PRN (17:40)
[2022-12-03 05:19] LABS: INR 1.59 (0.8-3.0); PROTIME 16.7 SECONDS (9.4-12.5)
[2022-12-03] MEDS: Advair Hfa 115/21 Common canister IH SCH (07:20)
[2022-12-03] MEDS: DEMADEX 20 MG PO SCH (08:05)
[2022-12-03] MEDS: Zestril 20 MG PO SCH (08:05)
[2022-12-03] MEDS: Cordarone 200 MG PO SCH (08:07)
[2022-12-03] MEDS: ZYVOX PO SCH (08:07)
[2022-12-03 08:10] VITALS: BP 148/71; PULSE 80; O2SAT 90
--- NOTE | 2022-12-03 15:29 | PCM.DS ---
Discharge Summary Date of Admission: 11/24/22 15:30 Date of Discharge: 12/03/22 Admitting Physician: TASHA GARCIAS DO Primary Care Provider: TASHA GARCIAS DO Allergies Allergies No Known Drug Allergies Allergy (Verified 11/18/22 11:02) Hospital Summary - Vitals & Intake/Output Vital Signs: Vital Signs Temperature 97.0 F 12/03/22 08:00 Pulse Rate 80 12/03/22 08:00 Respiratory Rate 17 12/03/22 08:00 Blood Pressure 148/71 12/03/22 08:00 O2 Sat by Pulse Oximetry 90 L 12/03/22 08:00 Intake & Output: Intake & Output 12/01/22 12/02/22 12/03/22 12/04/22 11:59 11:59 11:59 11:59 Intake Total 240 480 Output Total 1 500 Balance 240 479 -500 Weight 140.2 kg 102.2 kg - Lab Result Diagrams: 12/02/22 05:00 12/02/22 05:00 Lab Results-Last 24 Hrs: Lab Results-Last 24 Hours 12/02/22 12/03/22 Range/Units 16:00 05:01 PT 38.3 H 16.7 H (9.4-12.5) SECONDS INR 3.89 H D 1.59 D (0.8-3.0) Micro Results-Entire Visit: Microbiology 12/02/22 06:00 Urine Culture - Preliminary Clean Catch Midstream GRAM NEGATIVE ID AND SENSITIVITY PENDING - Procedures and Test Procedures and Tests throughout Hospitalization: Therapy Orders & Screens 11/24/22 15:48 OT Eval and Treat ( Order) ONCE Comment: Consulting Provider: Physician Instructions: Reason For Exam: DECONDITIONING R/T SYNCOPE, DIZZINESS, UTI Evaluate: Yes Treat: Yes Diagnosis: DECONDITIONING R/T SYNCOPE, DIZZINESS, UTI PT Eval & Treat (MD Order) ONCE Reason for Eval:: DECONDITIONING R/T SYNCOPE, DIZZINESS, UTI Diagnosis: DECONDITIONING R/T SYNCOPE, DIZZINESS, UTI Respiratory Therapy Assessment DAILY Comment: Diagnosis: Dizziness, uti 11/24/22 16:04 PT Clarification Order ROUTINE Comment: Physician Instructions: Reason For Exam: PT Clarification: P.T. TO RX 5X/WK UNTIL D/C TO ADDRESS FUNCTIONAL MOBILITY AND GAIT TRAINING, THER EX, BALANCE AND ENDURANCE ACTIVITIES WELL EDUCATION RE: SAFETY AWARENESS TO MAXIMIZE FUNCTIONAL POTENTIAL FOR D/C HOME. 11/25/22 17:17 OT Clarification Order ROUTINE Comment: Physician Instructions: Reason For Exam: OT Clarification: OT TO PROVIDE SKILLED SERVICES 5X/WK TO ADDRESS ADL AND FUNCTIONAL MOBILITY RETRAINING, THERAPEUTIC EXERCISES AND ACTIVITIES, A.E./DME TRAINING AND RECOMMENDATIONS, ENERGY CONSERVATION/WORK SIMPLIFICATION, ALL TO MAXIMIZE HER OVE RALL FUNCTIONAL INDEPENDENCE FOR RETURN TO HOME AT [facility]. Final Diagnosis/Problem List - Final Discharge Diagnosis/Problem (1) Atrial fibrillation Status: Chronic Code(s): I48.91 - UNSPECIFIED ATRIAL FIBRILLATION (2) Dizziness Status: Resolved Code(s): R42 - DIZZINESS AND GIDDINESS (3) Sick sinus syndrome Status: Suspected Code(s): I49.5 - SICK SINUS SYNDROME - Discharge Disposition: Home, Self-Care Condition: Stable Prescriptions: New Linezolid [Zyvox] 600 mg PO BID 5 Days #10 tablet Continue Potassium Chloride Tab* [Klor Con] 20 meq PO QAM Furosemide 40 mg PO DAILY PRN PRN Reason: water gain Amiodarone HCl 200 mg [Cordarone 200 MG] 200 mg PO BID Metolazone 2.5 mg [Zaroxolyn 2.5 MG] 2.5 mg PO 2XW Torsemide 20 mg [Demadex 20 mg] 20 mg PO BID Cholecalciferol (Vitamin D3) [Vitamin D] 5,000 units PO DAILY Ascorbic Acid 500 mg [Vitamin C 500 MG] 500 mg PO DAILY Fluticasone/Umeclidin/Vilanter [Trelegy Ellipta 100-62.5-25] 1 puff IH DAILY Discontinued carvediloL [Carvedilol] 12.5 mg PO BIDWM Digoxin 0.125 mg Tablet [Lanoxin 0.125MG TABLET] 0.125 mg PO DAILY Warfarin Sodium 5 mg [Jantoven] 4 mg PO DAILY Losartan Potassium 50 mg [Cozaar 50 MG] 50 mg PO DAILY Warfarin Sodium 1 mg [Jantoven] 4 mg PO DAILY Instructions: Urinary Tract Infection, Adult (DC), Generalized Weakness (DC), Dizziness, Nonvertigo, (DC) Additional Instructions: follow up with Dr Garcias as needed after procedure at [place] DR. RINCON WILL ADDRESS YOUR CARDIAC MEDICATIONS AFTER YOUR PROCEDURE Follow up with: TASHA GARCIAS DO [Primary Care Provider] -
--- NOTE | 2022-12-03 16:44 | PCM.DS ---
Discharge Summary Date of Admission: 11/24/22 15:30 Date of Discharge: 12/03/2022 Admitting Physician: TASHA GARCIAS DO Primary Care Provider: TASHA GARCIAS DO Allergies Allergies No Known Drug Allergies Allergy (Verified 11/18/22 11:02) Hospital Summary - Hospital Course Hospital Course: Patient is an 82 yr old female admitted from [facility] to [facility] for Rehab. Diagnosis include : Dizziness /near syncope affecting ambulation, Bradycadia,Afib on Warfarin - Coreg and Dig discontinued BNP elevated treated with Lasix, UTI treated with Linezolid awaiting Cult/sens Elevated INR treated with Vitamin K without sequela. HTN off Coreg was treated with Lisinopril 40mg Patient will be discharged to the care of her daughter who will take her to [facility] for pacemaker/defibrillator placement with Dr May. Cardiac meds post proceedure will be managed by Dr May. Coumadin dosing will be managed by [facility] and Dr May. - Vitals & Intake/Output Vital Signs: Vital Signs Temperature 97.0 F 12/03/22 08:00 Pulse Rate 80 12/03/22 08:00 Respiratory Rate 17 12/03/22 08:00 Blood Pressure 148/71 12/03/22 08:00 O2 Sat by Pulse Oximetry 90 L 12/03/22 08:00 Intake & Output: Intake & Output 12/01/22 12/02/22 12/03/22 12/04/22 11:59 11:59 11:59 11:59 Intake Total 240 480 Output Total 1 500 Balance 240 479 -500 Weight 140.2 kg 102.2 kg - Lab Result Diagrams: 12/02/22 05:00 12/02/22 05:00 Lab Results-Last 24 Hrs: Lab Results-Last 24 Hours 12/02/22 12/03/22 Range/Units 16:00 05:01 PT 38.3 H 16.7 H (9.4-12.5) SECONDS INR 3.89 H D 1.59 D (0.8-3.0) Micro Results-Entire Visit: Microbiology 12/02/22 06:00 Urine Culture - Preliminary Clean Catch Midstream GRAM NEGATIVE ID AND SENSITIVITY PENDING - Procedures and Test Procedures and Tests throughout Hospitalization: Therapy Orders & Screens 11/24/22 15:48 OT Eval and Treat (MD Order) ONCE Comment: Consulting Provider: Physician Instructions: Reason For Exam: DECONDITIONING R/T SYNCOPE, DIZZINESS, UTI Evaluate: Yes Treat: Yes Diagnosis: DECONDITIONING R/T SYNCOPE, DIZZINESS, UTI PT Eval & Treat (MD Order) ONCE Reason for Eval:: DECONDITIONING R/T SYNCOPE, DIZZINESS, UTI Diagnosis: DECONDITIONING R/T SYNCOPE, DIZZINESS, UTI Respiratory Therapy Assessment DAILY Comment: Diagnosis: Dizziness, uti 11/24/22 16:04 PT Clarification Order ROUTINE Comment: Physician Instructions: Reason For Exam: PT Clarification: P.T. TO RX 5X/WK UNTIL D/C TO ADDRESS FUNCTIONAL MOBILITY AND GAIT TRAINING, THER EX, BALANCE AND ENDURANCE ACTIVITIES WELL EDUCATION RE: SAFETY AWARENESS TO MAXIMIZE FUNCTIONAL POTENTIAL FOR D/C HOME. 11/25/22 17:17 OT Clarification Order ROUTINE Comment: Physician Instructions: Reason For Exam: OT Clarification: OT TO PROVIDE SKILLED SERVICES 5X/WK TO ADDRESS ADL AND FUNCTIONAL MOBILITY RETRAINING, THERAPEUTIC EXERCISES AND ACTIVITIES, A.E./DME TRAINING AND RECOMMENDATIONS, ENERGY CONSERVATION/WORK SIMPLIFICATION, ALL TO MAXIMIZE HER OVERALL FUNCTIONAL INDEPENDENCE FOR RETURN TO HOME AT [facility]. Discharge Exam General Appearance: no apparent distress Neurologic Exam: alert, oriented x 3, cooperative, normal mood/affect Ears, Nose, Throat Exam: normal ENT inspection Neck Exam: normal inspection Respiratory Exam: normal breath sounds, other (fine crackles resolved) Cardiovascular Exam: other (irregular rate 60) Gastrointestinal/Abdomen Exam: soft (nontender) Extremity Exam: pedal edema Skin Exam: normal color, warm, dry Final Diagnosis/Problem List - Final Discharge Diagnosis/Problem (1) Atrial fibrillation Status: Chronic Code(s): I48.91 - UNSPECIFIED ATRIAL FIBRILLATION (2) Dizziness Status: Resolved Code(s): R42 - DIZZINESS AND GIDDINESS (3) Sick sinus syndrome Status: Suspected Assessment & Plan: Dr May to place Pacemaker today at [facility] Code(s): I49.5 - SICK SINUS SYNDROME (4) Urinary tract infection Status: Acute Assessment & Plan: await cult/sens Code(s): N39.0 - URINARY TRACT INFECTION, SITE NOT SPECIFIED (5) HTN (hypertension) Status: Chronic Assessment & Plan: med changes per Dr May ,going to [facility] for pacemaker today Code(s): I10 - ESSENTIAL (PRIMARY) HYPERTENSION - Discharge Disposition: Home, Self-Care Condition: Stable Prescriptions: New Linezolid [Zyvox] 600 mg PO BID 5 Days #10 tablet Continue Amiodarone HCl 200 mg [Cordarone 200 MG] 200 mg PO BID Metolazone 2.5 mg [Zaroxolyn 2.5 MG] 2.5 mg PO 2XW Torsemide 20 mg [Demadex 20 mg] 20 mg PO BID Cholecalciferol (Vitamin D3) [Vitamin D] 5,000 units PO DAILY Ascorbic Acid 500 mg [Vitamin C 500 MG] 500 mg PO DAILY Fluticasone/Umeclidin/Vilanter [Trelegy Ellipta 100-62.5-25] 1 puff IH DAILY Discontinued Potassium Chloride Tab* [Klor Con] 20 meq PO QAM Furosemide 40 mg PO DAILY PRN PRN Reason: water gain carvediloL [Carvedilol] 12.5 mg PO BIDWM Digoxin 0.125 mg Tablet [Lanoxin 0.125MG TABLET] 0.125 mg PO DAILY Warfarin Sodium 5 mg [Jantoven] 4 mg PO DAILY Losartan Potassium 50 mg [Cozaar 50 MG] 50 mg PO DAILY Warfarin Sodium 1 mg [Jantoven] 4 mg PO DAILY Instructions: Urinary Tract Infection, Adult (DC), Generalized Weakness (DC), Dizziness, Nonvertigo, (DC) Additional Instructions: follow up with Dr Garcias as needed after procedure at [place] DR. RINCON WILL ADDRESS YOUR CARDIAC MEDICATIONS AFTER YOUR PROCEDURE Follow up with: TASHA GARCIAS DO [Primary Care Provider] -
== END 2022-12-03 09:05 | disposition home or self-care (01) | DRG 309 ==
LOC: MED SURG 15:30
PROVIDERS: ADMIT Family Medicine; ATTEND Family Medicine
DX: I48.91 Unspecified atrial fibrillation (principal); N39.0 Urinary tract infection, site not specified; R42 Dizziness and giddiness; I49.5 Sick sinus syndrome; I10 Essential (primary) hypertension; Z79.01 Long term (current) use of anticoagulants; Z79.899 Other long term (current) drug therapy; Z20.828 Contact with and (suspected) exposure to other viral communicable diseases
CPT/HCPCS: 36415; 80053; 81001; 82947; 83880; 85025; 85610; 87077; 87086; 87186; 94640; 94760; J3430; 97110-GP; A9270-GY

== ENCOUNTER 2022-12-05 14:21 | Observation (INO) | payer MEDICARE, OTHER ==
--- NOTE | 2022-12-05 15:05 | ERPHSYRPT ---
- History of Present Illness Source: patient, other (Daughter) Exam Limitations: no limitations Patient Subjective Stated Complaint: Patient c/o weakness following procedure at [facility] for pacemaker placement. Patient fell at home due to weakness and inability to utilize her LUE to use her walker during transfers and ambulation at home. C/O right knee pain. Triage Nursing Assessment: Patient brought into ER by ambulance. She is hard of hearing. No SOB. No cough. She is alert to name, place, current age, why she is here but didn't know the month of the year. Some fading bruising noted to BLE. Edema noted to BLE. Patient arrived wearing a sling to her LUE and left shoulder bandaged. Physician History: 82 yo WF released from [facility] yesterday presents per EMS w generalized lethargy after getting home. Urine culture came back ESBL from 12/02/22. She was released from group home rehab 4 wks ago after extensive stay. Daughter is the main historian. She denies fever/N/V/Diarrhea/melena/hematochezia/focal weakness/chest pain. Pt is a DNR per daughter. Timing/Duration: today Severity: moderate Modifying Factors: Improves With: nothing Associated Symptoms: denies symptoms, loss of appetite Allergies/Adverse Reactions: No Known Drug Allergies Allergy (Verified 12/05/22 14:59) Home Medications: Amiodarone HCl 200 mg [Cordarone 200 MG] 200 mg PO BID 11/18/22 [History] Ascorbic Acid 500 mg [Vitamin C 500 MG] 500 mg PO DAILY 11/18/22 [History] Cholecalciferol (Vitamin D3) [Vitamin D] 5,000 units PO DAILY 11/18/22 [History] Fluticasone/Umeclidin/Vilanter [Trelegy Ellipta 100-62.5-25] 1 puff IH DAILY 11/18/22 [History] Carvedilol 12.5 mg [Coreg 12.5 mg] 1 tablet PO BID 12/05/22 [History] Digoxin 0.125 mg Tablet [Lanoxin 0.125MG TABLET] 1 tab PO DAILY 12/05/22 [History] Empagliflozin [Jardiance] 20 mg PO BID 12/05/22 [History] Furosemide 20 mg [Lasix 20 mg] 20 mg PO DAILY 12/05/22 [History] Linagliptin [Tradjenta] 1 tablet PO DAILY 12/05/22 [History] Magnesium Oxide 400 mg [Mag-Ox 400] 400 mg PO DAILY 12/05/22 [History] Multivitamin 1 tablet PO DAILY 12/05/22 [History] Potassium Chloride 20 meq PO DAILY 12/05/22 [History] Sacubitril/Valsartan [Entresto 24 mg-26 mg Tablet] 1 tablet PO BID 12/05/22 [History] Warfarin Sodium 1 tab PO 3XW 12/05/22 [History] Hx Tetanus, Diphtheria Vaccination/Date Given: Yes Hx Influenza Vaccination/Date Given: Yes Hx Pneumococcal Vaccination/Date Given: Yes Immunizations Up to Date: Yes Travel Risk - International Travel Have you traveled outside of the country in past 3 weeks: No - Coronavirus Screening Are you exhibiting any of the following symptoms?: No Close contact with a COVID-19 positive Pt in past 14-21 Days: No - Vaccine Status Have you recieved a Covid-19 vaccination: No - Review of Systems Constitutional: No Symptoms, Lethargy, Malaise, Weakness Eyes: No Symptoms Ears, Nose, & Throat: No Symptoms Respiratory: No Symptoms Cardiac: No Symptoms Abdominal/Gastrointestinal: No Symptoms Genitourinary Symptoms: No Symptoms Musculoskeletal: No Symptoms Skin: No Symptoms Neurological: No Symptoms Psychological: No Symptoms Endocrine: No Symptoms Hematologic/Lymphatic: No Symptoms Immunological/Allergic: No Symptoms - Past Medical History Pertinent Past Medical History: Yes Neurological History: No Pertinent History ENT History: No Pertinent History Cardiac History: Arrhythmia, Congestive Heart Failure, Hypertension Respiratory History: COPD Endocrine Medical History: Diabetes Type II Musculoskeletal History: Arthritis GI Medical History: Gallbladder Disease, Polyps History: No Pertinent History Psycho-Social History: No Pertinent History Female Reproductive Disorders: No Pertinent History Other Medical History: scheduled for PPM/ defib 12/03/[address] Harden - Past Surgical History Past Surgical History: Yes Neuro Surgical History: No Pertinent History Cardiac: Internal Defibrillator, Pacemaker Respiratory: No Pertinent History Gastrointestinal: Cholecystectomy Genitourinary: No Pertinent History Musculoskeletal: Joint Replacement Female Surgical History: Hysterectomy Other Surgical History: lucy knees - Social History Smoking Status: Never smoker Exposure to second hand smoke: No Drug Use: none Patient Lives Alone: No - Nursing Vital Signs Nursing Vital Signs: Initial Vital Signs Temperature 97.1 F 12/05/22 14:23 Pulse Rate 64 12/05/22 14:23 Respiratory Rate 18 12/05/22 14:23 Blood Pressure 116/69 12/05/22 14:23 O2 Sat by Pulse Oximetry 96 12/05/22 14:23 Pain Scale Pain Intensity 0 WNL - Physical Exam General Appearance: no apparent distress Eye Exam: PERRL/EOMI, eyes nml inspection Ears, Nose, Throat Exam: normal ENT inspection, TMs normal, pharynx normal, moist mucous membranes Neck Exam: normal inspection, non-tender, supple, full range of motion, No meningismus, No mass, No Brudzinski, No Kernig's, No carotid bruit Respiratory Exam: airway intact, crackles/rales (Faint bibasilar rales), No respiratory distress Cardiovascular Exam: irregular (Afib), capillary refill <2 sec Gastrointestinal/Abdomen Exam: soft, normal bowel sounds, No tenderness Back Exam: normal inspection, normal range of motion, No CVA tenderness, No vertebral tenderness Extremity Exam: pedal edema (2+, nonpitting) Neurologic Exam: oriented x 3, cooperative, community advocate II-XII nml as tested, normal mood/affect, sensation nml Skin Exam: ecchymosis (B pre-tibial areas) Lymphatic Exam: No adenopathy SpO2 Interpretation: normal SpO2: 96 O2 Delivery: Room Air - Course Nursing assessment & vital signs reviewed: Yes EKG Interpreted by Me: RATE (Afib/Rate 65/Prolonged QT-QTc/IRBBB/Flat Twaves) - Radiology Exams Chest X-ray Interpretation: Discussed w/ radiologist (Rotated/Cardiomegaly/New pacer lead/Diffuse R lung airspace dz) - CT Exams Chest CT Interpretation: Discussed w/radiologist (Diffuse bilateral groundglass consolidating/nonconsolidating airspace dz) Ordered Tests: Active Orders 24 hr Category Date Time Status EKG-ER Only STAT Care 12/05/22 14:37 Completed Heart-Healthy Diet Diet 12/06/22 Breakfast Active CHEST 1 VIEW (PORTABLE) Stat Exams 12/05/22 14:31 Completed CHEST WITHOUT CONTRAST [CT] Stat Exams 12/05/22 15:51 Completed BLOOD CULTURE Stat Lab 12/05/22 16:55 Received CBC W DIFF AM.LAB Lab 12/06/22 04:00 Ordered CBC W DIFF Stat Lab 12/05/22 15:00 Completed CMP AM.LAB Lab 12/06/22 04:00 Ordered CMP Stat Lab 12/05/22 15:00 Completed CULTURE,URINE Stat Lab 12/05/22 14:32 Received Lactic Acid Stat Lab 12/05/22 15:00 Completed NT PRO BNPII Stat Lab 12/05/22 15:00 Completed PROTIME WITH INR Stat Lab 12/05/22 15:00 Completed PTT Stat Lab 12/05/22 15:00 Completed TROPONIN Q4H Lab 12/05/22 15:00 Completed TROPONIN Q4H Lab 12/05/22 18:45 Ordered TROPONIN Q4H Lab 12/05/22 22:45 Ordered UA W/RFX UR CULTURE Stat Lab 12/05/22 14:32 Completed Transfer Order Routine Transfer 12/05/22 Completed Medication Summary Generic Name Dose Route Start Last Admin Trade Name Freq PRN Reason Stop Dose Admin Sodium Chloride 1,000 mls @ 70 mls/hr 12/05/22 17:30 Sodium Chloride 0.9% 1000 Ml IV 01/04/23 17:29 .[id number] JERRY Piperacillin Sod/Tazobactam 100 mls @ 200 mls/hr 12/05/22 18:00 Sod 3.375 gm/ Sodium Chloride IV 12/08/22 17:59 Q6HT JERRY Ondansetron HCl 4 mg 12/05/22 17:17 Ondansetron Hcl 4 Mg/2 Ml Vial IV 01/04/23 17:16 Q6H PRN PRN NAUSEA/VOMITING Discontinued Medications Generic Name Dose Route Start Last Admin Trade Name Freq PRN Reason Stop Dose Admin Piperacillin Sod/Tazobactam 100 mls @ 200 mls/hr 12/05/22 16:45 12/05/22 16:52 Sod 4.5 gm/ Sodium Chloride IV 12/05/22 17:14 200 mls/hr STAT ONE Administration Sodium Chloride Confirm 12/05/22 16:47 Sodium Chloride 100ml Mini-Bag Plus Administered 12/05/22 16:48 Dose 100 mls @ ud IV .STK-MED ONE Piperacillin Sod/Tazobactam Sod Confirm 04/07/23 16:47 Piperacillin/Tazobactam Sodium 4.5 Gm Vial Administered 12/05/22 16:48 Dose 4.5 gm IV .[facility] ONE Lab/Rad Data: Laboratory Result Diagrams 12/05/22 15:00 12/05/22 15:00 Laboratory Results 12/05/22 12/05/22 12/05/22 Range/Units 15:07 15:00 15:00 WBC (4.0-10.5) x10^3/uL RBC (4.1-5.4) x10^6/uL Hgb (12.0-16.0) g/dL Hct (35-47) % MCV (78-100) fL MCH (26-32) pg MCHC (32-36) g/dL RDW (11.5-14.0) % Plt Count (150-450) x10^3/uL MPV (7.5-11.0) fL Gran % (36.0-66.0) % Immature Gran % (Auto) (0.00-0.4) % Nucleat RBC Rel Count (0.00-0.1) % Eos # (Auto) (0-0.5) x10^3/uL Immature Gran # (Auto) (0.00-0.03) x10^3u/L Absolute Lymphs (auto) (1.0-4.6) x10^3/uL Absolute Monos (auto) (0.0-1.3) x10^3/uL Absolute Nucleated RBC (0.00-0.01) x10^3u/L Lymphocytes % (24.0-44.0) % Monocytes % (0.0-12.0) % Eosinophils % (0.00-5.0) % Basophils % (0.0-0.4) % Absolute Granulocytes (1.4-6.9) x10^3/uL Basophils # (0-0.4) x10^3/uL PT (9.4-12.5) SECONDS INR (0.8-3.0) APTT (25.1-36.5) SECONDS Sodium (137-145) mmol/L Potassium (3.5-5.1) mmol/L Chloride (98-107) mmol/L Carbon Dioxide (22-30) mmol/L Anion Gap (5-15) MEQ/L BUN (7-17) mg/dL Creatinine (0.52-1.04) mg/dL Estimated GFR ML/MIN Glucose (74-106) mg/dL Lactic Acid 1.4 (0.4-2.0) Calcium (8.4-10.2) mg/dL Total Bilirubin (0.2-1.3) mg/dL AST (14-36) U/L ALT (0-35) U/L Alkaline Phosphatase (38-126) U/L Troponin I 0.012 (0.000-0.034) ng/mL NT-Pro-B Natriuret Pep (<300) pg/mL Serum Total Protein (6.3-8.2) g/dL Albumin (3.5-5.0) g/dL Urine Color (Yellow) Urine Appearance (Clear) Urine pH (4.6-8.0) Ur Specific [place] (1.005-1.030) Urine Protein (Negative) Urine Glucose (UA) (Negative) mg/dL Urine Ketones (Negative) Urine Blood (Negative) Urine Nitrite (Negative) Urine Bilirubin (Negative) Urine Urobilinogen (0.2) mg/dL Ur Leukocyte Esterase (Negative) U Hyaline Cast (Auto) (0-2) /LPF Urine Microscopic RBC (0-5) /HPF Urine Microscopic WBC (0-5) /HPF Ur Epithelial Cells (None Seen) /HPF Urine Bacteria (None Seen) /HPF Urine Culture Reflexed (NO) Influenza Type A Ag NEGATIVE (NEGATIVE) Influenza Type B Ag NEGATIVE (NEGATIVE) RSV (PCR) NEGATIVE (NEGATIVE) SARS-CoV-2 (PCR) NEGATIVE (NEGATIVE) 12/05/22 12/05/22 12/05/22 Range/Units 15:00 15:00 15:00 WBC 8.2 (4.0-10.5) x10^3/uL RBC 3.35 L (4.1-5.4) x10^6/uL Hgb 10.5 L (12.0-16.0) g/dL Hct 32.4 L (35-47) % MCV 96.7 (78-100) fL MCH 31.3 (26-32) pg MCHC 32.4 (32-36) g/dL RDW 13.4 (11.5-14.0) % Plt Count 128 L (150-450) x10^3/uL MPV 10.2 (7.5-11.0) fL Gran % 72.0 H (36.0-66.0) % Immature Gran % (Auto) 0.6 H (0.00-0.4) % Nucleat RBC Rel Count 0.0 (0.00-0.1) % Eos # (Auto) 0.08 (0-0.5) x10^3/uL Immature Gran # (Auto) 0.05 H (0.00-0.03) x10^3u/L Absolute Lymphs (auto) 1.11 (1.0-4.6) x10^3/uL Absolute Monos (auto) 1.00 (0.0-1.3) x10^3/uL Absolute Nucleated RBC 0.00 (0.00-0.01) x10^3u/L Lymphocytes % 13.5 L (24.0-44.0) % Monocytes % 12.1 H (0.0-12.0) % Eosinophils % 1.0 (0.00-5.0) % Basophils % 0.8 (0.0-0.4) % Absolute Granulocytes 5.93 (1.4-6.9) x10^3/uL Basophils # 0.07 (0-0.4) x10^3/uL PT 13.3 H (9.4-12.5) SECONDS INR 1.24 (0.8-3.0) APTT 28.8 (25.1-36.5) SECONDS Sodium 137 (137-145) mmol/L Potassium 3.9 (3.5-5.1) mmol/L Chloride 100 (98-107) mmol/L Carbon Dioxide 28 (22-30) mmol/L Anion Gap 12.4 (5-15) MEQ/L BUN 20 H (7-17) mg/dL Creatinine 0.68 (0.52-1.04) mg/dL Estimated GFR > 60.0 ML/MIN Glucose 120 H (74-106) mg/dL Lactic Acid (0.4-2.0) Calcium 8.5 (8.4-10.2) mg/dL Total Bilirubin 1.20 (0.2-1.3) mg/dL AST 31 (14-36) U/L ALT 17 (0-35) U/L Alkaline Phosphatase 91 (38-126) U/L Troponin I (0.000-0.034) ng/mL NT-Pro-B Natriuret Pep 1240 (<300) pg/mL Serum Total Protein 6.7 (6.3-8.2) g/dL Albumin 3.5 (3.5-5.0) g/dL Urine Color (Yellow) Urine Appearance (Clear) Urine pH (4.6-8.0) Ur Specific [place] (1.005-1.030) Urine Protein (Negative) Urine Glucose (UA) (Negative) mg/dL Urine Ketones (Negative) Urine Blood (Negative) Urine Nitrite (Negative) Urine Bilirubin (Negative) Urine Urobilinogen (0.2) mg/dL Ur Leukocyte Esterase (Negative) U Hyaline Cast (Auto) (0-2) /LPF Urine Microscopic RBC (0-5) /HPF Urine Microscopic WBC (0-5) /HPF Ur Epithelial Cells (None Seen) /HPF Urine Bacteria (None Seen) /HPF Urine Culture Reflexed (NO) Influenza Type A Ag (NEGATIVE) Influenza Type B Ag (NEGATIVE) RSV (PCR) (NEGATIVE) SARS-CoV-2 (PCR) (NEGATIVE) 12/05/22 Range/Units 14:32 WBC (4.0-10.5) x10^3/uL RBC (4.1-5.4) x10^6/uL Hgb (12.0-16.0) g/dL Hct (35-47) % MCV (78-100) fL MCH (26-32) pg MCHC (32-36) g/dL RDW (11.5-14.0) % Plt Count (150-450) x10^3/uL MPV (7.5-11.0) fL Gran % (36.0-66.0) % Immature Gran % (Auto) (0.00-0.4) % Nucleat RBC Rel Count (0.00-0.1) % Eos # (Auto) (0-0.5) x10^3/uL Immature Gran # (Auto) (0.00-0.03) x10^3u/L Absolute Lymphs (auto) (1.0-4.6) x10^3/uL Absolute Monos (auto) (0.0-1.3) x10^3/uL Absolute Nucleated RBC (0.00-0.01) x10^3u/L Lymphocytes % (24.0-44.0) % Monocytes % (0.0-12.0) % Eosinophils % (0.00-5.0) % Basophils % (0.0-0.4) % Absolute Granulocytes (1.4-6.9) x10^3/uL Basophils # (0-0.4) x10^3/uL PT (9.4-12.5) SECONDS INR (0.8-3.0) APTT (25.1-36.5) SECONDS Sodium (137-145) mmol/L Potassium (3.5-5.1) mmol/L Chloride (98-107) mmol/L Carbon Dioxide (22-30) mmol/L Anion Gap (5-15) MEQ/L BUN (7-17) mg/dL Creatinine (0.52-1.04) mg/dL Estimated GFR ML/MIN Glucose (74-106) mg/dL Lactic Acid (0.4-2.0) Calcium (8.4-10.2) mg/dL Total Bilirubin (0.2-1.3) mg/dL AST (14-36) U/L ALT (0-35) U/L Alkaline Phosphatase (38-126) U/L Troponin I (0.000-0.034) ng/mL NT-Pro-B Natriuret Pep (<300) pg/mL Serum Total Protein (6.3-8.2) g/dL Albumin (3.5-5.0) g/dL Urine Color Yellow (Yellow) Urine Appearance Clear (Clear) Urine pH 6.5 (4.6-8.0) Ur Specific [place] 1.020 (1.005-1.030) Urine Protein Negative (Negative) Urine Glucose (UA) Negative (Negative) mg/dL Urine Ketones Negative (Negative) Urine Blood Small A (Negative) Urine Nitrite Negative (Negative) Urine Bilirubin Negative (Negative) Urine Urobilinogen 1.0 A (0.2) mg/dL Ur Leukocyte Esterase Small A (Negative) U Hyaline Cast (Auto) 3-5 A (0-2) /LPF Urine Microscopic RBC 3-5 (0-5) /HPF Urine Microscopic WBC 6-10 A (0-5) /HPF Ur Epithelial Cells Moderate A (None Seen) /HPF Urine Bacteria None Seen (None Seen) /HPF Urine Culture Reflexed ORDERED SEPARATELY (NO) Influenza Type A Ag (NEGATIVE) Influenza Type B Ag (NEGATIVE) RSV (PCR) (NEGATIVE) SARS-CoV-2 (PCR) (NEGATIVE) - Progress Progress: improved Progress Note: 12/05/22 17:44 Nursing note and vital signs reviewed All lab results/CXR result/CT result reviewed and shared w pt/daughter DNR per daughter Blood cultures x2 4.5gms IV Zosyn Obs per Dr. Wolfe Counseled pt/family regarding: lab results, diagnosis, rad results Medical Desision Making - Independent Historian Additional History obtained from: Child - External Record(s) Reviewed Records reviewed as a part of evaluation & management: Inpatient - Discussion of managment Care discussed with:: on-call "doc" Reviewed:: Test results Agreed on:: Treatment plan, place in obs - Diagnostic Testing Diagnostic test were ordered, analyzed, and reviewed by me: Yes Radiological Interpretation: Discussed w/ radiologist - Risk of complications The pt has a mod risk of morbidity or mortality based on: Need for prescription drug management The pt has a high risk of morbidity or mortality based on: Decision regarding hospitilization or escalation of hosp level of care, Decision not to resucitate - Departure Departure Disposition: Observation Clinical Impression: UTI (urinary tract infection), Pneumonia Condition: Stable Critical Care Time: No
[2022-12-05 15:06] LABS: Absolute Neutrophil Ct (ANC) 5.93 x10^3/uL (1.4-6.9); BASOPHIL % 0.8 % (0.0-0.4); Basophil (Absolute #) 0.07 x10^3/uL (0-0.4); Eosinophil (Absolute #) 0.08 x10^3/uL (0-0.5); Hematocrit 32.4 % (35-47); Hemoglobin 10.5 g/dL (12.0-16.0); IMMATURE GRAN # 0.05 x10^3u/L (0.00-0.03); IMMATURE GRAN % 0.6 % (0.00-0.4); Lymphocyte (Absolute #) 1.11 x10^3/uL (1.0-4.6); Lymphocytes % 13.5 % (24.0-44.0); Mean Cell Volume 96.7 fL (78-100); Mean Corpuscular Hemoglobin 31.3 pg (26-32); Mean Corpuscular Hgb Concent. 32.4 g/dL (32-36); Mean Platelet Volume 10.2 fL (7.5-11.0); Monocytes % 12.1 % (0.0-12.0); Platelet Count 128 x10^3/uL (150-450); Red Blood Count 3.35 x10^6/uL (4.1-5.4); Red Cell Distribution Width 13.4 % (11.5-14.0); White Blood Count 8.2 x10^3/uL (4.0-10.5)
--- NOTE | 2022-12-05 15:08 | XRAY ---
Indication: Lethargy. Comparison: March 15, 2014 Portable chest rotated with new cardiomegaly and new left single lead pacemaker. Lungs demonstrates new diffuse right lung groundglass airspace disease without consolidation/large effusion. Left lung clear. Bony thorax intact again with osteopenia and degenerative changes.
[2022-12-05 15:14] LABS: Appearance Clear (Clear); Bacteria None Seen /HPF (None Seen); Bilirubin Negative (Negative); Blood Small (Negative); Epithelial Cells Moderate /HPF (None Seen); Glucose, Urine Negative (Negative); Ketones Negative (Negative); Leukocyte Esterase Small (Negative); Nitrite Negative (Negative); Ph 6.5 (4.6-8.0); Protein,Urine Dip Negative (Negative)
[2022-12-05 15:16] LABS: ADD URINE CULTURE? ORDERED SEPARATELY (NO)
[2022-12-05 15:21] LABS: INR 1.24 (0.8-3.0); PROTIME 13.3 SECONDS (9.4-12.5); PTT 28.8 SECONDS (25.1-36.5)
[2022-12-05 15:29] LABS: ALBUMIN 3.5 g/dL (3.5-5.0); ALKALINE PHOSPHATASE 91 U/L (38-126); ANION GAP 12.4 MEQ/L (5-15); BLOOD UREA NITROGEN 20 mg/dL (7-17); CHLORIDE 100 mmol/L (98-107); Calcium 8.5 mg/dL (8.4-10.2); Carbon Dioxide 28 mmol/L (22-30); Creatinine 1 0.68 mg/dL (0.52-1.04); EST GLOMERULAR FILTRATION RATE > 60.0 ML/MIN; Glucose 120 mg/dL (74-106); NT PRO BNPII 1240 pg/mL (<300); Potassium 3.9 mmol/L (3.5-5.1); SGOT/AST 31 U/L (14-36); SGPT/ALT 17 U/L (0-35); SODIUM 137 mmol/L (137-145); Total Protein 6.7 g/dL (6.3-8.2)
[2022-12-05 15:45] LABS: INFLUENZA A NEGATIVE (NEGATIVE); INFLUENZA B NEGATIVE (NEGATIVE); RESPIRATORY SYNCTIAL VIRUS NEGATIVE (NEGATIVE); SARS-CoV-2 Xpert Express NEGATIVE (NEGATIVE)
--- NOTE | 2022-12-05 16:32 | XRAY ---
Indication: Lethargy. Abnormal chest x-ray. Multiple contiguous axial images obtained through the chest without contrast as ordered. Comparison: None Diffuse bilateral groundglass consolidating/nonconsolidating airspace disease, right greater than left without effusion. Incidental small left lower lobe calcified granuloma. Heart is enlarged with left single lead pacemaker. Aorta mildly arteriosclerotic without aneurysm. No pathologic mediastinal lymphadenopathy. Bony thorax intact with osteopenia and mild/moderate degenerative changes throughout the spine. Limited upper abdomen demonstrates 1.4 cm right adrenal adenoma, cholecystectomy clips, and a few tiny hepatic/splenic calcified granulomas. Impression: 1. Diffuse bilateral groundglass consolidating/nonconsolidating airspace disease. Rule out Covid 19 pneumonia. 2. Cardiomegaly without CHF. 3. Incidental right adrenal adenoma, chronic bony findings, and old granulomatous disease.
[2022-12-05] MEDS ORDERED: PIPERACILLIN/TAZOBACTAM 4.5 GM in Sodium Chloride 100ML MINI-BAG PLUS 100 ML IV ONE (16:45)
[2022-12-05] MEDS ORDERED: Sodium Chloride 100ML MINI-BAG PLUS 100 ML IV ONE ×2 (16:47→22:57)
[2022-12-05] MEDS ORDERED: PIPERACILLIN/TAZOBACTAM IV ONE ×2 (16:47→22:56)
[2022-12-05] MEDS ORDERED: Zofran 4 MG/2 ML VIAL IV PRN (17:17)
[2022-12-05] MEDS ORDERED: Sodium Chloride 0.9% 1000 ML 1,000 ML IV SCH (17:30)
[2022-12-05] MEDS: TYLENOL 325 MG PO PRN (18:15)
[2022-12-05] MEDS: PIPERACILLIN/TAZOBACTAM 3.375 GM in Sodium Chloride 100ML MINI-BAG PLUS 100 ML IV SCH ×2 (18:16→23:05)
[2022-12-05] MEDS ORDERED: Sodium Chloride 0.9% 1000 ML 1,000 ML ONE (18:22)
[2022-12-05] MEDS ORDERED: ENTRESTO 49 MG-51 MG TABLET PO ONE (22:00)
[2022-12-05] MEDS ORDERED: JARDIANCE PO ONE (22:00)
[2022-12-05] MEDS ORDERED: COREG 12.5 MG PO ONE (22:00)
[2022-12-06 05:40] LABS: Absolute Neutrophil Ct (ANC) 4.22 x10^3/uL (1.4-6.9); BASOPHIL % 1.2 % (0.0-0.4); Basophil (Absolute #) 0.08 x10^3/uL (0-0.4); Eosinophil % 2.8 % (0.00-5.0); Eosinophil (Absolute #) 0.18 x10^3/uL (0-0.5); Hematocrit 29.4 % (35-47); Hemoglobin 9.5 g/dL (12.0-16.0); IMMATURE GRAN # 0.05 x10^3u/L (0.00-0.03); IMMATURE GRAN % 0.8 % (0.00-0.4); Lymphocyte (Absolute #) 1.07 x10^3/uL (1.0-4.6); Lymphocytes % 16.4 % (24.0-44.0); Mean Cell Volume 95.8 fL (78-100); Mean Corpuscular Hemoglobin 30.9 pg (26-32); Mean Corpuscular Hgb Concent. 32.3 g/dL (32-36); Mean Platelet Volume 9.9 fL (7.5-11.0); Monocyte (Absolute #) 0.92 x10^3/uL (0.0-1.3); Monocytes % 14.1 % (0.0-12.0); Neutrophil % 64.7 % (36.0-66.0); Platelet Count 122 x10^3/uL (150-450); Red Blood Count 3.07 x10^6/uL (4.1-5.4); Red Cell Distribution Width 13.5 % (11.5-14.0); White Blood Count 6.5 x10^3/uL (4.0-10.5)
[2022-12-06 05:53] LABS: ALBUMIN 3.1 g/dL (3.5-5.0); ALKALINE PHOSPHATASE 81 U/L (38-126); ANION GAP 9.6 MEQ/L (5-15); BLOOD UREA NITROGEN 19 mg/dL (7-17); CHLORIDE 101 mmol/L (98-107); Calcium 8.3 mg/dL (8.4-10.2); Carbon Dioxide 30 mmol/L (22-30); Creatinine 1 0.74 mg/dL (0.52-1.04); EST GLOMERULAR FILTRATION RATE > 60.0 ML/MIN; Glucose 98 mg/dL (74-106); Potassium 3.5 mmol/L (3.5-5.1); SGOT/AST 30 U/L (14-36); SGPT/ALT 16 U/L (0-35); SODIUM 137 mmol/L (137-145); Total Protein 6.1 g/dL (6.3-8.2)
[2022-12-06] MEDS ORDERED: PIPERACILLIN/TAZOBACTAM IV ONE (06:05)
[2022-12-06] MEDS ORDERED: Sodium Chloride 100ML MINI-BAG PLUS 100 ML IV ONE (06:06)
[2022-12-06] MEDS: PIPERACILLIN/TAZOBACTAM 3.375 GM in Sodium Chloride 100ML MINI-BAG PLUS 100 ML IV SCH ×4 (06:10→23:13)
--- NOTE | 2022-12-06 09:02 | PCM.HP ---
History of Present Illness - Chief Complaint Chief Complaint: pneumonia, uti History of Present Illness: is a 82 year old female who was released from [facility] following pacemaker placement, she was weak and unsteady and fell at home, recent urine culture with ESBL+ E coli, she has no complaints this morning but feels weak and unsteady, she is agreeable to rehab stay following hospital stay. no cough or fever. - Review of Systems Constitutional: Weakness Respiratory: No Cough, No Short Of Breath Cardiac: No Chest Pain, No Edema, No Syncope Abdominal/Gastrointestinal: No Abdominal Pain, No Nausea, No Vomiting, No Diarrhea All Other Systems: Reviewed and Negative Medications & Allergies Home Medications: Home Medication List Amiodarone HCl 200 mg [Cordarone 200 MG] 200 mg PO DAILY 11/18/22 [History Confirmed 12/05/22] Cholecalciferol (Vitamin D3) [Vitamin D] 5,000 units PO DAILY 11/18/22 [History Confirmed 12/05/22] Fluticasone/Umeclidin/Vilanter [Trelegy Ellipta 100-62.5-25] 1 puff IH DAILY 11/18/22 [History Confirmed 12/05/22] Carvedilol 12.5 mg [Coreg 12.5 mg] 12.5 mg PO BID 12/05/22 [History Confirmed 12/05/22] Digoxin 0.125 mg Tablet [Lanoxin 0.125MG TABLET] 0.125 mg PO DAILY 12/05/22 [History Confirmed 12/05/22] Empagliflozin [Jardiance] 20 mg PO BID 12/05/22 [History Confirmed 12/05/22] Furosemide 20 mg [Lasix 20 mg] 20 mg PO DAILY PRN PRN 12/05/22 [History Confirmed 12/05/22] Linagliptin [Tradjenta] 1 tablet PO DAILY 12/05/22 [History Confirmed 12/05/22] Magnesium Oxide 400 mg [Mag-Ox 400] 400 mg PO DAILY 12/05/22 [History Confirmed 12/05/22] Multivitamin 1 tablet PO DAILY 12/05/22 [History Confirmed 12/05/22] Potassium Chloride 20 meq PO DAILY 12/05/22 [History Confirmed 12/05/22] Sacubitril/Valsartan [Entresto 24 mg-26 mg Tablet] 1 tablet PO BID 12/05/22 [History Confirmed 12/05/22] Warfarin Sodium 4 mg PO UD 12/05/22 [History Confirmed 12/05/22] Allergies/Adverse Reactions: Allergies Allergy/AdvReac Type Severity Reaction Status Date / Time No Known Drug Allergies Allergy Verified 12/05/22 14:59 - Past Medical History Past Medical History: Yes Neurological History: No Pertinent History ENT History: No Pertinent History Cardiac History: Arrhythmia, Congestive Heart Failure, Hypertension Respiratory History: COPD Endocrine Medical History: Diabetes Type II Musculoskelatal History: Arthritis GI Medical History: Gallbladder Disease, Polyps History: No Pertinent History Pyscho-Social History: No Pertinent History Reproductive Disorders: No Pertinent History Comment: scheduled for PPM/ defib 12/03/[address] Harden - Female History Are you now?: No - Past Surgical History Past Surgical History: Yes Neuro Surgical History: No Pertinent History Cardiac History: Internal Defibrillator, Pacemaker Respiratory Surgery: No Pertinent History GI Surgical History: Cholecystectomy Genitourinary Surgical Hx: No Pertinent History Musculskeletal Surgical Hx: Joint Replacement Female Surgical History: Hysterectomy Other Surgical History: lucy knees - Social History Smoking Status: Never smoker Exposure to second hand smoke: No Alcohol: None Drug Use: none - Physical Exam Vital Signs: Vital Signs - 24 hr Temp Pulse Resp BP Pulse Ox 12/06/22 07:35 97.5 F 93 H 16 145/97 87 L 12/06/22 04:00 97.3 F 78 19 136/63 92 L 12/05/22 23:19 96.9 F 60 18 104/57 94 L 12/05/22 20:00 97.0 F 58 L 16 85/53 95 12/05/22 17:55 98.7 F 95 H 18 121/58 95 12/05/22 17:49 96 12/05/22 17:00 63 18 124/58 97 12/05/22 16:00 63 18 119/80 94 L 12/05/22 15:00 66 16 113/66 97 12/05/22 14:23 97.1 F 64 18 116/69 96 General Appearance: no apparent distress Neurologic Exam: alert (very hard of hearing), cooperative Respiratory Exam: normal breath sounds, lungs clear, No respiratory distress Cardiovascular Exam: regular rate/rhythm, normal heart sounds, normal peripheral pulses Gastrointestinal/Abdomen Exam: soft, normal bowel sounds, No tenderness, No mass Results - Labs Lab/Micro Results: Lab Results-Last 24 Hours 12/05/22 12/05/22 12/05/22 Range/Units 14:32 15:00 15:00 WBC 8.2 (4.0-10.5) x10^3/uL RBC 3.35 L (4.1-5.4) x10^6/uL Hgb 10.5 L (12.0-16.0) g/dL Hct 32.4 L (35-47) % MCV 96.7 (78-100) fL MCH 31.3 (26-32) pg MCHC 32.4 (32-36) g/dL RDW 13.4 (11.5-14.0) % Plt Count 128 L (150-450) x10^3/uL MPV 10.2 (7.5-11.0) fL Gran % 72.0 H (36.0-66.0) % Immature Gran % (Auto) 0.6 H (0.00-0.4) % Nucleat RBC Rel Count 0.0 (0.00-0.1) % Eos # (Auto) 0.08 (0-0.5) x10^3/uL Immature Gran # (Auto) 0.05 H (0.00-0.03) x10^3u/L Absolute Lymphs (auto) 1.11 (1.0-4.6) x10^3/uL Absolute Monos (auto) 1.00 (0.0-1.3) x10^3/uL Absolute Nucleated RBC 0.00 (0.00-0.01) x10^3u/L Lymphocytes % 13.5 L (24.0-44.0) % Monocytes % 12.1 H (0.0-12.0) % Eosinophils % 1.0 (0.00-5.0) % Basophils % 0.8 (0.0-0.4) % Absolute Granulocytes 5.93 (1.4-6.9) x10^3/uL Basophils # 0.07 (0-0.4) x10^3/uL PT (9.4-12.5) SECONDS INR (0.8-3.0) APTT (25.1-36.5) SECONDS Sodium 137 (137-145) mmol/L Potassium 3.9 (3.5-5.1) mmol/L Chloride 100 (98-107) mmol/L Carbon Dioxide 28 (22-30) mmol/L Anion Gap 12.4 (5-15) MEQ/L BUN 20 H (7-17) mg/dL Creatinine 0.68 (0.52-1.04) mg/dL Estimated GFR > 60.0 ML/MIN Glucose 120 H (74-106) mg/dL Lactic Acid (0.4-2.0) Calcium 8.5 (8.4-10.2) mg/dL Total Bilirubin 1.20 (0.2-1.3) mg/dL AST 31 (14-36) U/L ALT 17 (0-35) U/L Alkaline Phosphatase 91 (38-126) U/L Troponin I (0.000-0.034) ng/mL NT-Pro-B Natriuret Pep 1240 (<300) pg/mL Serum Total Protein 6.7 (6.3-8.2) g/dL Albumin 3.5 (3.5-5.0) g/dL Prealbumin (17.6-36.0) mg/dL Urine Color Yellow (Yellow) Urine Appearance Clear (Clear) Urine pH 6.5 (4.6-8.0) Ur Specific [place] 1.020 (1.005-1.030) Urine Protein Negative (Negative) Urine Glucose (UA) Negative (Negative) mg/dL Urine Ketones Negative (Negative) Urine Blood Small A (Negative) Urine Nitrite Negative (Negative) Urine Bilirubin Negative (Negative) Urine Urobilinogen 1.0 A (0.2) mg/dL Ur Leukocyte Esterase Small A (Negative) U Hyaline Cast (Auto) 3-5 A (0-2) /LPF Urine Microscopic RBC 3-5 (0-5) /HPF Urine Microscopic WBC 6-10 A (0-5) /HPF Ur Epithelial Cells Moderate A (None Seen) /HPF Urine Bacteria None Seen (None Seen) /HPF Urine Culture Reflexed ORDERED SEPARATELY (NO) Digoxin (0.8-1.9) ng/mL Influenza Type A Ag (NEGATIVE) Influenza Type B Ag (NEGATIVE) RSV (PCR) (NEGATIVE) SARS-CoV-2 (PCR) (NEGATIVE) 12/05/22 12/05/22 12/05/22 Range/Units 15:00 15:00 15:00 WBC (4.0-10.5) x10^3/uL RBC (4.1-5.4) x10^6/uL Hgb (12.0-16.0) g/dL Hct (35-47) % MCV (78-100) fL MCH (26-32) pg MCHC (32-36) g/dL RDW (11.5-14.0) % Plt Count (150-450) x10^3/uL MPV (7.5-11.0) fL Gran % (36.0-66.0) % Immature Gran % (Auto) (0.00-0.4) % Nucleat RBC Rel Count (0.00-0.1) % Eos # (Auto) (0-0.5) x10^3/uL Immature Gran # (Auto) (0.00-0.03) x10^3u/L Absolute Lymphs (auto) (1.0-4.6) x10^3/uL Absolute Monos (auto) (0.0-1.3) x10^3/uL Absolute Nucleated RBC (0.00-0.01) x10^3u/L Lymphocytes % (24.0-44.0) % Monocytes % (0.0-12.0) % Eosinophils % (0.00-5.0) % Basophils % (0.0-0.4) % Absolute Granulocytes (1.4-6.9) x10^3/uL Basophils # (0-0.4) x10^3/uL PT 13.3 H (9.4-12.5) SECONDS INR 1.24 (0.8-3.0) APTT 28.8 (25.1-36.5) SECONDS Sodium (137-145) mmol/L Potassium (3.5-5.1) mmol/L Chloride (98-107) mmol/L Carbon Dioxide (22-30) mmol/L Anion Gap (5-15) MEQ/L BUN (7-17) mg/dL Creatinine (0.52-1.04) mg/dL Estimated GFR ML/MIN Glucose (74-106) mg/dL Lactic Acid 1.4 (0.4-2.0) Calcium (8.4-10.2) mg/dL Total Bilirubin (0.2-1.3) mg/dL AST (14-36) U/L ALT (0-35) U/L Alkaline Phosphatase (38-126) U/L Troponin I 0.012 (0.000-0.034) ng/mL NT-Pro-B Natriuret Pep (<300) pg/mL Serum Total Protein (6.3-8.2) g/dL Albumin (3.5-5.0) g/dL Prealbumin (17.6-36.0) mg/dL Urine Color (Yellow) Urine Appearance (Clear) Urine pH (4.6-8.0) Ur Specific [place] (1.005-1.030) Urine Protein (Negative) Urine Glucose (UA) (Negative) mg/dL Urine Ketones (Negative) Urine Blood (Negative) Urine Nitrite (Negative) Urine Bilirubin (Negative) Urine Urobilinogen (0.2) mg/dL Ur Leukocyte Esterase (Negative) U Hyaline Cast (Auto) (0-2) /LPF Urine Microscopic RBC (0-5) /HPF Urine Microscopic WBC (0-5) /HPF Ur Epithelial Cells (None Seen) /HPF Urine Bacteria (None Seen) /HPF Urine Culture Reflexed (NO) Digoxin (0.8-1.9) ng/mL Influenza Type A Ag (NEGATIVE) Influenza Type B Ag (NEGATIVE) RSV (PCR) (NEGATIVE) SARS-CoV-2 (PCR) (NEGATIVE) 12/05/22 12/05/22 12/05/22 Range/Units 15:00 15:07 17:50 WBC (4.0-10.5) x10^3/uL RBC (4.1-5.4) x10^6/uL Hgb (12.0-16.0) g/dL Hct (35-47) % MCV (78-100) fL MCH (26-32) pg MCHC (32-36) g/dL RDW (11.5-14.0) % Plt Count (150-450) x10^3/uL MPV (7.5-11.0) fL Gran % (36.0-66.0) % Immature Gran % (Auto) (0.00-0.4) % Nucleat RBC Rel Count (0.00-0.1) % Eos # (Auto) (0-0.5) x10^3/uL Immature Gran # (Auto) (0.00-0.03) x10^3u/L Absolute Lymphs (auto) (1.0-4.6) x10^3/uL Absolute Monos (auto) (0.0-1.3) x10^3/uL Absolute Nucleated RBC (0.00-0.01) x10^3u/L Lymphocytes % (24.0-44.0) % Monocytes % (0.0-12.0) % Eosinophils % (0.00-5.0) % Basophils % (0.0-0.4) % Absolute Granulocytes (1.4-6.9) x10^3/uL Basophils # (0-0.4) x10^3/uL PT (9.4-12.5) SECONDS INR (0.8-3.0) APTT (25.1-36.5) SECONDS Sodium (137-145) mmol/L Potassium (3.5-5.1) mmol/L Chloride (98-107) mmol/L Carbon Dioxide (22-30) mmol/L Anion Gap (5-15) MEQ/L BUN (7-17) mg/dL Creatinine (0.52-1.04) mg/dL Estimated GFR ML/MIN Glucose (74-106) mg/dL Lactic Acid (0.4-2.0) Calcium (8.4-10.2) mg/dL Total Bilirubin (0.2-1.3) mg/dL AST (14-36) U/L ALT (0-35) U/L Alkaline Phosphatase (38-126) U/L Troponin I < 0.012 (0.000-0.034) ng/mL NT-Pro-B Natriuret Pep (<300) pg/mL Serum Total Protein (6.3-8.2) g/dL Albumin (3.5-5.0) g/dL Prealbumin 11.60 L (17.6-36.0) mg/dL Urine Color (Yellow) Urine Appearance (Clear) Urine pH (4.6-8.0) Ur Specific [place] (1.005-1.030) Urine Protein (Negative) Urine Glucose (UA) (Negative) mg/dL Urine Ketones (Negative) Urine Blood (Negative) Urine Nitrite (Negative) Urine Bilirubin (Negative) Urine Urobilinogen (0.2) mg/dL Ur Leukocyte Esterase (Negative) U Hyaline Cast (Auto) (0-2) /LPF Urine Microscopic RBC (0-5) /HPF Urine Microscopic WBC (0-5) /HPF Ur Epithelial Cells (None Seen) /HPF Urine Bacteria (None Seen) /HPF Urine Culture Reflexed (NO) Digoxin (0.8-1.9) ng/mL Influenza Type A Ag NEGATIVE (NEGATIVE) Influenza Type B Ag NEGATIVE (NEGATIVE) RSV (PCR) NEGATIVE (NEGATIVE) SARS-CoV-2 (PCR) NEGATIVE (NEGATIVE) 12/05/22 12/05/22 12/06/22 Range/Units 23:03 Unknown 05:36 WBC 6.5 (4.0-10.5) x10^3/uL RBC 3.07 L (4.1-5.4) x10^6/uL Hgb 9.5 L (12.0-16.0) g/dL Hct 29.4 L (35-47) % MCV 95.8 (78-100) fL MCH 30.9 (26-32) pg MCHC 32.3 (32-36) g/dL RDW 13.5 (11.5-14.0) % Plt Count 122 L (150-450) x10^3/uL MPV 9.9 (7.5-11.0) fL Gran % 64.7 (36.0-66.0) % Immature Gran % (Auto) 0.8 H (0.00-0.4) % Nucleat RBC Rel Count 0.0 (0.00-0.1) % Eos # (Auto) 0.18 (0-0.5) x10^3/uL Immature Gran # (Auto) 0.05 H (0.00-0.03) x10^3u/L Absolute Lymphs (auto) 1.07 (1.0-4.6) x10^3/uL Absolute Monos (auto) 0.92 (0.0-1.3) x10^3/uL Absolute Nucleated RBC 0.00 (0.00-0.01) x10^3u/L Lymphocytes % 16.4 L (24.0-44.0) % Monocytes % 14.1 H (0.0-12.0) % Eosinophils % 2.8 (0.00-5.0) % Basophils % 1.2 (0.0-0.4) % Absolute Granulocytes 4.22 (1.4-6.9) x10^3/uL Basophils # 0.08 (0-0.4) x10^3/uL PT (9.4-12.5) SECONDS INR (0.8-3.0) APTT (25.1-36.5) SECONDS Sodium (137-145) mmol/L Potassium (3.5-5.1) mmol/L Chloride (98-107) mmol/L Carbon Dioxide (22-30) mmol/L Anion Gap (5-15) MEQ/L BUN (7-17) mg/dL Creatinine (0.52-1.04) mg/dL Estimated GFR ML/MIN Glucose (74-106) mg/dL Lactic Acid (0.4-2.0) Calcium (8.4-10.2) mg/dL Total Bilirubin (0.2-1.3) mg/dL AST (14-36) U/L ALT (0-35) U/L Alkaline Phosphatase (38-126) U/L Troponin I < 0.012 (0.000-0.034) ng/mL NT-Pro-B Natriuret Pep (<300) pg/mL Serum Total Protein (6.3-8.2) g/dL Albumin (3.5-5.0) g/dL Prealbumin (17.6-36.0) mg/dL Urine Color (Yellow) Urine Appearance (Clear) Urine pH (4.6-8.0) Ur Specific [place] (1.005-1.030) Urine Protein (Negative) Urine Glucose (UA) (Negative) mg/dL Urine Ketones (Negative) Urine Blood (Negative) Urine Nitrite (Negative) Urine Bilirubin (Negative) Urine Urobilinogen (0.2) mg/dL Ur Leukocyte Esterase (Negative) U Hyaline Cast (Auto) (0-2) /LPF Urine Microscopic RBC (0-5) /HPF Urine Microscopic WBC (0-5) /HPF Ur Epithelial Cells (None Seen) /HPF Urine Bacteria (None Seen) /HPF Urine Culture Reflexed (NO) Digoxin 0.6 L (0.8-1.9) ng/mL Influenza Type A Ag (NEGATIVE) Influenza Type B Ag (NEGATIVE) RSV (PCR) (NEGATIVE) SARS-CoV-2 (PCR) (NEGATIVE) 12/06/22 Range/Units 05:36 WBC (4.0-10.5) x10^3/uL RBC (4.1-5.4) x10^6/uL Hgb (12.0-16.0) g/dL Hct (35-47) % MCV (78-100) fL MCH (26-32) pg MCHC (32-36) g/dL RDW (11.5-14.0) % Plt Count (150-450) x10^3/uL MPV (7.5-11.0) fL Gran % (36.0-66.0) % Immature Gran % (Auto) (0.00-0.4) % Nucleat RBC Rel Count (0.00-0.1) % Eos # (Auto) (0-0.5) x10^3/uL Immature Gran # (Auto) (0.00-0.03) x10^3u/L Absolute Lymphs (auto) (1.0-4.6) x10^3/uL Absolute Monos (auto) (0.0-1.3) x10^3/uL Absolute Nucleated RBC (0.00-0.01) x10^3u/L Lymphocytes % (24.0-44.0) % Monocytes % (0.0-12.0) % Eosinophils % (0.00-5.0) % Basophils % (0.0-0.4) % Absolute Granulocytes (1.4-6.9) x10^3/uL Basophils # (0-0.4) x10^3/uL PT (9.4-12.5) SECONDS INR (0.8-3.0) APTT (25.1-36.5) SECONDS Sodium 137 (137-145) mmol/L Potassium 3.5 (3.5-5.1) mmol/L Chloride 101 (98-107) mmol/L Carbon Dioxide 30 (22-30) mmol/L Anion Gap 9.6 (5-15) MEQ/L BUN 19 H (7-17) mg/dL Creatinine 0.74 (0.52-1.04) mg/dL Estimated GFR > 60.0 ML/MIN Glucose 98 (74-106) mg/dL Lactic Acid (0.4-2.0) Calcium 8.3 L (8.4-10.2) mg/dL Total Bilirubin 1.00 (0.2-1.3) mg/dL AST 30 (14-36) U/L ALT 16 (0-35) U/L Alkaline Phosphatase 81 (38-126) U/L Troponin I (0.000-0.034) ng/mL NT-Pro-B Natriuret Pep (<300) pg/mL Serum Total Protein 6.1 L (6.3-8.2) g/dL Albumin 3.1 L (3.5-5.0) g/dL Prealbumin (17.6-36.0) mg/dL Urine Color (Yellow) Urine Appearance (Clear) Urine pH (4.6-8.0) Ur Specific [place] (1.005-1.030) Urine Protein (Negative) Urine Glucose (UA) (Negative) mg/dL Urine Ketones (Negative) Urine Blood (Negative) Urine Nitrite (Negative) Urine Bilirubin (Negative) Urine Urobilinogen (0.2) mg/dL Ur Leukocyte Esterase (Negative) U Hyaline Cast (Auto) (0-2) /LPF Urine Microscopic RBC (0-5) /HPF Urine Microscopic WBC (0-5) /HPF Ur Epithelial Cells (None Seen) /HPF Urine Bacteria (None Seen) /HPF Urine Culture Reflexed (NO) Digoxin (0.8-1.9) ng/mL Influenza Type A Ag (NEGATIVE) Influenza Type B Ag (NEGATIVE) RSV (PCR) (NEGATIVE) SARS-CoV-2 (PCR) (NEGATIVE) - Radiology Impressions Radiology Exams & Impressions: Radiology Procedures Category Date Time Status CHEST 1 VIEW (PORTABLE) Stat Exams 12/05/22 14:31 Completed CHEST WITHOUT CONTRAST [CT] Stat Exams 12/05/22 15:51 Completed Assessment/Plan (1) UTI due to extended-spectrum beta lactamase (ESBL) producing Escherichia coli Current Visit: Yes Status: Acute Assessment & Plan: continue zosyn as ordered Code(s): N39.0 - URINARY TRACT INFECTION, SITE NOT SPECIFIED; B96.29 - OTH ESCHERICHIA COLI THE CAUSE OF DISEASES CLASSD ELSWHR; Z16.12 - EXTENDED SPECTRUM BETA LACTAMASE (ESBL) RESISTANCE (2) Sick sinus syndrome Current Visit: No Status: Suspected Assessment & Plan: s/p pacemaker placement Code(s): I49.5 - SICK SINUS SYNDROME (3) Weakness Current Visit: Yes Status: Acute Assessment & Plan: rehab stay recommended Code(s): R53.1 - WEAKNESS
[2022-12-06] MEDS: TYLENOL 325 MG PO PRN ×2 (12:28→21:33)
[2022-12-06] MEDS ORDERED: JANTOVEN PO SCH (15:00)
[2022-12-06] MEDS ORDERED: MEDICATION INTERVENTION MC SCH ×2 (15:30)
[2022-12-06] MEDS: Klor Con PO SCH (15:59)
[2022-12-06] MEDS: THERAGRAN MULTIVITAMIN PO SCH (15:59)
[2022-12-06] MEDS: ENTRESTO 49 MG-51 MG TABLET PO SCH (15:59)
[2022-12-06] MEDS: VITAMIN D PO SCH (16:00)
[2022-12-06] MEDS: Coumadin 3 MG PO SCH (18:25)
[2022-12-06] MEDS: JANTOVEN PO SCH (18:26)
[2022-12-06] MEDS: JARDIANCE PO SCH (22:57)
[2022-12-06] MEDS: COREG 12.5 MG PO SCH ×2 (22:58→23:13)
[2022-12-07] MEDS: PIPERACILLIN/TAZOBACTAM 3.375 GM in Sodium Chloride 100ML MINI-BAG PLUS 100 ML IV SCH ×4 (05:36→22:59)
[2022-12-07 05:53] LABS: Absolute Neutrophil Ct (ANC) 3.37 x10^3/uL (1.4-6.9); BASOPHIL % 1.2 % (0.0-0.4); Basophil (Absolute #) 0.07 x10^3/uL (0-0.4); Eosinophil % 3.4 % (0.00-5.0); Hematocrit 29.5 % (35-47); Hemoglobin 9.5 g/dL (12.0-16.0); IMMATURE GRAN # 0.05 x10^3u/L (0.00-0.03); IMMATURE GRAN % 0.9 % (0.00-0.4); Lymphocyte (Absolute #) 1.33 x10^3/uL (1.0-4.6); Lymphocytes % 22.9 % (24.0-44.0); Mean Cell Volume 96.1 fL (78-100); Mean Corpuscular Hemoglobin 30.9 pg (26-32); Mean Corpuscular Hgb Concent. 32.2 g/dL (32-36); Mean Platelet Volume 10.2 fL (7.5-11.0); Monocytes % 13.7 % (0.0-12.0); Neutrophil % 57.9 % (36.0-66.0); Platelet Count 130 x10^3/uL (150-450); Red Blood Count 3.07 x10^6/uL (4.1-5.4); Red Cell Distribution Width 13.8 % (11.5-14.0); White Blood Count 5.8 x10^3/uL (4.0-10.5)
[2022-12-07 06:00] LABS: INR 1.31 (0.8-3.0)
[2022-12-07 06:02] LABS: BLOOD UREA NITROGEN 19 mg/dL (7-17); CHLORIDE 103 mmol/L (98-107); Calcium 8.2 mg/dL (8.4-10.2); Carbon Dioxide 30 mmol/L (22-30); EST GLOMERULAR FILTRATION RATE > 60.0 ML/MIN; Glucose 90 mg/dL (74-106); Potassium 3.5 mmol/L (3.5-5.1); SODIUM 138 mmol/L (137-145)
--- NOTE | 2022-12-07 07:13 | PCM.NOTE ---
Date and Time: 12/07/22711 Subjective Assessment: no new complaints today, resting comfortably. denies any pain Objective Exam General Appearance: no apparent distress Neurologic Exam: alert, cooperative Respiratory Exam: normal breath sounds, lungs clear, No respiratory distress Cardiovascular Exam: regular rate/rhythm, normal heart sounds Gastrointestinal/Abdomen Exam: soft, No tenderness, No mass Extremity Exam: other (left arm in sling) OBJECTIVE DATA Vital Signs: Vital Signs - 24 hr Temp Pulse Resp BP Pulse Ox 12/07/22 03:57 97.0 F 60 21 129/62 96 12/06/22 23:21 97.9 F 72 18 152/81 94 L 12/06/22 20:00 98.2 F 67 20 121/57 96 12/06/22 16:00 97.2 F 67 17 130/71 95 12/06/22 11:10 97.3 F 65 17 103/55 95 12/06/22 07:35 97.5 F 93 H 16 145/97 87 L Pain Assessment - Last Documented Pain Intensity 0 Pain Scale Used [facility] Intake and Output: Intake & Output 12/04/22 12/05/22 12/06/22 12/07/22 11:59 11:59 11:59 11:59 Intake Total 840 1499 Balance 840 1499 Weight 100.8 kg Lab Results: Lab Results-Last 24 Hours 12/07/22 12/07/22 12/07/22 Range/Units 05:11 05:11 05:11 WBC 5.8 (4.0-10.5) x10^3/uL RBC 3.07 L (4.1-5.4) x10^6/uL Hgb 9.5 L (12.0-16.0) g/dL Hct 29.5 L (35-47) % MCV 96.1 (78-100) fL MCH 30.9 (26-32) pg MCHC 32.2 (32-36) g/dL RDW 13.8 (11.5-14.0) % Plt Count 130 L (150-450) x10^3/uL MPV 10.2 (7.5-11.0) fL Gran % 57.9 (36.0-66.0) % Immature Gran % (Auto) 0.9 H (0.00-0.4) % Nucleat RBC Rel Count 0.0 (0.00-0.1) % Eos # (Auto) 0.20 (0-0.5) x10^3/uL Immature Gran # (Auto) 0.05 H (0.00-0.03) x10^3u/L Absolute Lymphs (auto) 1.33 (1.0-4.6) x10^3/uL Absolute Monos (auto) 0.80 (0.0-1.3) x10^3/uL Absolute Nucleated RBC 0.00 (0.00-0.01) x10^3u/L Lymphocytes % 22.9 L (24.0-44.0) % Monocytes % 13.7 H (0.0-12.0) % Eosinophils % 3.4 (0.00-5.0) % Basophils % 1.2 (0.0-0.4) % Absolute Granulocytes 3.37 (1.4-6.9) x10^3/uL Basophils # 0.07 (0-0.4) x10^3/uL PT 14.0 H (9.4-12.5) SECONDS INR 1.31 (0.8-3.0) Sodium 138 (137-145) mmol/L Potassium 3.5 (3.5-5.1) mmol/L Chloride 103 (98-107) mmol/L Carbon Dioxide 30 (22-30) mmol/L Anion Gap 9.0 (5-15) MEQ/L BUN 19 H (7-17) mg/dL Creatinine 0.70 (0.52-1.04) mg/dL Estimated GFR > 60.0 ML/MIN Glucose 90 (74-106) mg/dL Calcium 8.2 L (8.4-10.2) mg/dL Magnesium 2.0 (1.6-2.3) mg/dL Radiology Exams: Radiology Procedures Category Date Time Status CHEST 1 VIEW (PORTABLE) Stat Exams 12/05/22 14:31 Completed CHEST WITHOUT CONTRAST [CT] Stat Exams 12/05/22 15:51 Completed Assessment/Plan (1) UTI due to extended-spectrum beta lactamase (ESBL) producing Escherichia coli Current Visit: Yes Status: Acute Assessment & Plan: continue zosyn, recommend rehab stay due to fall and weakness following recent procedure. Code(s): N39.0 - URINARY TRACT INFECTION, SITE NOT SPECIFIED; B96.29 - OTH ESCHERICHIA COLI THE CAUSE OF DISEASES CLASSD ELSWHR; Z16.12 - EXTENDED SPECTRUM BETA LACTAMASE (ESBL) RESISTANCE (2) Sick sinus syndrome Current Visit: No Status: Suspected Code(s): I49.5 - SICK SINUS SYNDROME (3) Weakness Current Visit: Yes Status: Acute Code(s): R53.1 - WEAKNESS
[2022-12-07] MEDS: Lanoxin 0.125MG TABLET PO SCH (09:11)
[2022-12-07] MEDS: MAG-OX 400 PO SCH (09:11)
[2022-12-07] MEDS: LASIX 20 MG PO SCH (09:11)
[2022-12-07] MEDS: VITAMIN D PO SCH (09:11)
[2022-12-07] MEDS: ENTRESTO 49 MG-51 MG TABLET PO SCH (09:11)
[2022-12-07] MEDS: Cordarone 200 MG PO SCH (09:11)
[2022-12-07] MEDS: Klor Con PO SCH (09:11)
[2022-12-07] MEDS: THERAGRAN MULTIVITAMIN PO SCH (09:11)
[2022-12-07] MEDS: COREG 12.5 MG PO SCH ×2 (09:11→22:59)
[2022-12-07] MEDS: JARDIANCE PO SCH ×2 (09:18→22:59)
[2022-12-07] MEDS ORDERED: NON-FORMULARY ITEM (Fluticasone/Umeclidin/Vilanter [Trelegy Ellipta 100-62.5-25] 1 EACH Bl IH SCH (10:00)
[2022-12-07] MEDS ORDERED: NON-FORMULARY ITEM (Sacubitril/Valsartan [Entresto 24 Mg-26 Mg Tablet] 1 EACH Tablet) PO SCH (10:00)
[2022-12-07] MEDS ORDERED: LINAGLIPTIN 5 MG PO SCH (10:00)
[2022-12-07] MEDS ORDERED: NON-FORMULARY ITEM (Potassium Chloride [Potassium Chloride] 20 MEQ Tab.Er.Prt) PO SCH (10:00)
[2022-12-07] MEDS ORDERED: NON-FORMULARY ITEM (Multivitamin [Multivitamin] 1 EACH Tablet) PO SCH (10:00)
[2022-12-07] MEDS: TYLENOL 325 MG PO PRN ×2 (11:54→15:55)
[2022-12-07] MEDS: Coumadin 3 MG PO SCH (15:56)
[2022-12-07] MEDS: JANTOVEN PO SCH (15:56)
[2022-12-07] MEDS ORDERED: Advair Hfa 115/21 Common canister IH SCH (19:00)
[2022-12-07] MEDS ORDERED: FLUTICASONE-SALMETEROL 250-50 IH ONE (19:05)
[2022-12-07] MEDS: FLUTICASONE-SALMETEROL 250-50 IH SCH (19:11)
[2022-12-08 04:58] LABS: Absolute Neutrophil Ct (ANC) 3.26 x10^3/uL (1.4-6.9); BASOPHIL % 1.2 % (0.0-0.4); Basophil (Absolute #) 0.07 x10^3/uL (0-0.4); Eosinophil % 3.4 % (0.00-5.0); Eosinophil (Absolute #) 0.19 x10^3/uL (0-0.5); Hematocrit 30.7 % (35-47); Hemoglobin 9.9 g/dL (12.0-16.0); IMMATURE GRAN # 0.03 x10^3u/L (0.00-0.03); IMMATURE GRAN % 0.5 % (0.00-0.4); Lymphocyte (Absolute #) 1.22 x10^3/uL (1.0-4.6); Lymphocytes % 21.6 % (24.0-44.0); Mean Cell Volume 96.2 fL (78-100); Mean Corpuscular Hgb Concent. 32.2 g/dL (32-36); Mean Platelet Volume 9.9 fL (7.5-11.0); Monocyte (Absolute #) 0.88 x10^3/uL (0.0-1.3); Monocytes % 15.6 % (0.0-12.0); Neutrophil % 57.7 % (36.0-66.0); Platelet Count 148 x10^3/uL (150-450); Red Blood Count 3.19 x10^6/uL (4.1-5.4); Red Cell Distribution Width 13.8 % (11.5-14.0); White Blood Count 5.7 x10^3/uL (4.0-10.5)
[2022-12-08 05:09] LABS: INR 1.49 (0.8-3.0); PROTIME 15.8 SECONDS (9.4-12.5)
[2022-12-08 05:12] LABS: ANION GAP 10.9 MEQ/L (5-15); BLOOD UREA NITROGEN 17 mg/dL (7-17); CHLORIDE 104 mmol/L (98-107); Calcium 8.3 mg/dL (8.4-10.2); Carbon Dioxide 28 mmol/L (22-30); EST GLOMERULAR FILTRATION RATE > 60.0 ML/MIN; Glucose 89 mg/dL (74-106); Potassium 3.6 mmol/L (3.5-5.1); SODIUM 140 mmol/L (137-145)
[2022-12-08] MEDS: PIPERACILLIN/TAZOBACTAM 3.375 GM in Sodium Chloride 100ML MINI-BAG PLUS 100 ML IV SCH ×3 (05:41→16:21)
[2022-12-08] MEDS: FLUTICASONE-SALMETEROL 250-50 IH SCH (07:37)
[2022-12-08] MEDS: VITAMIN D PO SCH (09:02)
[2022-12-08] MEDS: Lanoxin 0.125MG TABLET PO SCH (09:02)
[2022-12-08] MEDS: Klor Con PO SCH (09:03)
[2022-12-08] MEDS: ENTRESTO 49 MG-51 MG TABLET PO SCH (09:03)
[2022-12-08] MEDS: LASIX 20 MG PO SCH (09:03)
[2022-12-08] MEDS: Cordarone 200 MG PO SCH (09:04)
[2022-12-08] MEDS: MAG-OX 400 PO SCH (09:04)
[2022-12-08] MEDS: THERAGRAN MULTIVITAMIN PO SCH (09:04)
[2022-12-08] MEDS: COREG 12.5 MG PO SCH (09:04)
[2022-12-08] MEDS ORDERED: Januvia 50 MG PO SCH (10:00)
[2022-12-08] MEDS: JARDIANCE PO SCH (10:38)
[2022-12-08 15:57] VITALS: BP 118/63; PULSE 73; O2SAT 98
--- NOTE | 2022-12-08 16:30 | PCM.DCORD ---
- Discharge Disposition: DC TO ANY "OTHER" [facility] Condition: Stable Prescriptions: New Ertapenem Sodium [Invanz ] 1,000 g IV DAILY 6 Days Continue Amiodarone HCl 200 mg [Cordarone 200 MG] 200 mg PO DAILY Cholecalciferol (Vitamin D3) [Vitamin D] 5,000 units PO DAILY Fluticasone/Umeclidin/Vilanter [Trelegy Ellipta 100-62.5-25] 1 puff IH DAILY Carvedilol 12.5 mg [Coreg 12.5 mg] 12.5 mg PO BID Empagliflozin [Jardiance] 20 mg PO BID Digoxin 0.125 mg Tablet [Lanoxin 0.125MG TABLET] 0.125 mg PO DAILY Warfarin Sodium 4 mg PO UD Potassium Chloride 20 meq PO DAILY Multivitamin 1 tablet PO DAILY Magnesium Oxide 400 mg [Mag-Ox 400] 400 mg PO DAILY Linagliptin [Tradjenta] 1 tablet PO DAILY Furosemide 20 mg [Lasix 20 mg] 40 mg PO DAILY Sacubitril/Valsartan [Entresto 24 mg-26 mg Tablet] 24 - 26 mg PO DAILY Instructions: Preventing Falls in Older Adults, Generalized Weakness (DC) Additional Instructions: ENVIVE [facility] ORDERS: PT/OT EVAL AND TREAT SEE MED LIST FOR CURRENT MED ORDERS HEART HEALTHY DIET LIMITATIONS PER LUE PER ORDERS FROM CARDIOLOGY AFTER PPM PLACEMENT INVANZ (ERTAPENEM) ONE GRAM IV DAILY TO BEGIN 12/09/22 SALINE LOCK WITH ROUTINE NORMAL SALINE FLUSHES Follow up with: BAUTISTA HUYNH [CONSULTING PHYSICIAN] - 12/09/22 10:00 am
[2022-12-08] MEDS ORDERED: JANTOVEN PO ONE (16:43)
--- NOTE | 2022-12-08 17:00 | PCM.DS ---
Discharge Summary Date of Admission: 12/05/22 17:30 Date of Discharge: 12/08/22 Admitting Physician: RYAN ZAPIEN Primary Care Provider: TASHA GARCIAS DO Allergies Allergies No Known Drug Allergies Allergy (Verified 12/05/22 14:59) Hospital Summary - Hospital Course Hospital Course: Patient was readmitted to [facility] through ER due to weakness and a fall after Pacemaker placement by Juli Huynh at [facility]. Her UA culture came back with ESBL resistant to oral meds. Patient was admitted for IV antibiotic to [facility] . - Vitals & Intake/Output Vital Signs: Vital Signs Temperature 97.6 F 12/08/22 15:56 Pulse Rate 73 12/08/22 15:56 Respiratory Rate 16 12/08/22 15:56 Blood Pressure 118/63 12/08/22 15:56 O2 Sat by Pulse Oximetry 98 12/08/22 15:56 Intake & Output: Intake & Output 12/06/22 12/07/22 12/08/22 12/09/22 11:59 11:59 11:59 11:59 Intake Total 840 1619 2078 380 Output Total 400 650 Balance 840 1619 1678 -270 Weight 100.8 kg - Lab Result Diagrams: 12/08/22 04:27 12/08/22 04:27 Lab Results-Last 24 Hrs: Lab Results-Last 24 Hours 12/08/22 12/08/22 12/08/22 Range/Units 04:27 04:27 04:27 WBC 5.7 (4.0-10.5) x10^3/uL RBC 3.19 L (4.1-5.4) x10^6/uL Hgb 9.9 L (12.0-16.0) g/dL Hct 30.7 L (35-47) % MCV 96.2 (78-100) fL MCH 31.0 (26-32) pg MCHC 32.2 (32-36) g/dL RDW 13.8 (11.5-14.0) % Plt Count 148 L (150-450) x10^3/uL MPV 9.9 (7.5-11.0) fL Gran % 57.7 (36.0-66.0) % Immature Gran % (Auto) 0.5 H (0.00-0.4) % Nucleat RBC Rel Count 0.0 (0.00-0.1) % Eos # (Auto) 0.19 (0-0.5) x10^3/uL Immature Gran # (Auto) 0.03 (0.00-0.03) x10^3u/L Absolute Lymphs (auto) 1.22 (1.0-4.6) x10^3/uL Absolute Monos (auto) 0.88 (0.0-1.3) x10^3/uL Absolute Nucleated RBC 0.00 (0.00-0.01) x10^3u/L Lymphocytes % 21.6 L (24.0-44.0) % Monocytes % 15.6 H (0.0-12.0) % Eosinophils % 3.4 (0.00-5.0) % Basophils % 1.2 (0.0-0.4) % Absolute Granulocytes 3.26 (1.4-6.9) x10^3/uL Basophils # 0.07 (0-0.4) x10^3/uL PT 15.8 H (9.4-12.5) SECONDS INR 1.49 (0.8-3.0) Sodium 140 (137-145) mmol/L Potassium 3.6 (3.5-5.1) mmol/L Chloride 104 (98-107) mmol/L Carbon Dioxide 28 (22-30) mmol/L Anion Gap 10.9 (5-15) MEQ/L BUN 17 (7-17) mg/dL Creatinine 0.70 (0.52-1.04) mg/dL Estimated GFR > 60.0 ML/MIN Glucose 89 (74-106) mg/dL Calcium 8.3 L (8.4-10.2) mg/dL Micro Results-Entire Visit: Microbiology 12/05/22 16:55 Blood Culture - Preliminary Blood NO GROWTH TO DATE 12/05/22 16:55 Blood Culture Gram Stain - Final Blood Not Reportable Blood Culture - Preliminary NO GROWTH TO DATE 12/05/22 14:32 Urine Culture - Preliminary Catherized GRAM NEGATIVE ID AND SENSITIVITY PENDING - Procedures and Test Procedures and Tests throughout Hospitalization: Therapy Orders & Screens 12/05/22 18:29 PT Screen per Nursing Assess ONCE Comment: Protocol Order Physician Instructions: Greater than 3 points order PT Admission Screenin Reason For Exam: Triggered on Admission Diagnosis: pneumonia, uti Open Wound/Cellutlitis/Pressure Ulcers: No Acute Fx/ORIF/Change in wt bearing status: No Severe MUSCULOSKELETAL pain: No ADL Dysfunction: Yes Acute CVA w/Hemiparesis/Hemiplegia: No Decreased Functional Mobility/Strength: Yes Sprain/Strain: No Acute Post-op Mobility Dysfunction: No Total Points: 4 12/07/22 19:00 Respiratory MDI BID Comment: WIXELLA 250/50 2 PUFFS BID Diagnosis: pneumonia, uti 12/08/22 07:00 Respiratory Therapy Assessment DAILY Comment: Diagnosis: pneumonia, uti Discharge Exam General Appearance: no apparent distress Neurologic Exam: alert, oriented x 3, cooperative, normal mood/affect Eye Exam: eyes nml inspection Ears, Nose, Throat Exam: normal ENT inspection Neck Exam: normal inspection Respiratory Exam: normal breath sounds Cardiovascular Exam: irregular (rate 70) Gastrointestinal/Abdomen Exam: soft (nontender) Back Exam: normal inspection Extremity Exam: pedal edema (trace) Final Diagnosis/Problem List - Final Discharge Diagnosis/Problem (1) UTI due to extended-spectrum beta lactamase (ESBL) producing Escherichia coli Status: Acute Assessment & Plan: treat with Invanz x 6 more days at [facility] Code(s): N39.0 - URINARY TRACT INFECTION, SITE NOT SPECIFIED; B96.29 - OT ESCHERICHIA COLI THE CAUSE OF DISEASES CLASSD ELSWHR; Z16.12 - EXTENDED SPECT RUM BETA LACTAMASE (ESBL) RESISTANCE (2) Pacemaker Status: Acute Code(s): Z95.0 - PRESENCE OF CARDIAC PACEMAKER (3) Atrial fibrillation Status: Chronic Code(s): I48.91 - UNSPECIFIED ATRIAL FIBRILLATION (4) Anticoagulant long-term use Status: Chronic Assessment & Plan: continue Warfain- test INR qod and send results to Dr Garcias,will follow at [facility] Code(s): Z79.01 - FPC (CURRENT) USE OF ANTICOAGULANTS (5) Elevated brain natriuretic peptide (BNP) level Status: Chronic Assessment & Plan: received diuretics - will follow. Code(s): R79.89 - OTHER SPECIFIED ABNORMAL FINDINGS OF BLOOD CHEMISTRY (6) Abnormal chest CT Status: Suspected Assessment & Plan: follow with [facility] as outpatient Code(s): R93.89 - ABNORMAL FINDINGS ON DX IMAGING OF [facility] BODY STRUCTURES - Discharge Disposition: DC TO ANY "OTHER" GROUP HOME Condition: Stable Prescriptions: New Ertapenem Sodium [Invanz ] 1,000 g IV DAILY 6 Days Continue Amiodarone HCl 200 mg [Cordarone 200 MG] 200 mg PO DAILY Cholecalciferol (Vitamin D3) [Vitamin D] 5,000 units PO DAILY Fluticasone/Umeclidin/Vilanter [Trelegy Ellipta 100-62.5-25] 1 puff IH DAILY Carvedilol 12.5 mg [Coreg 12.5 mg] 12.5 mg PO BID Digoxin 0.125 mg Tablet [Lanoxin 0.125MG TABLET] 0.125 mg PO DAILY Warfarin Sodium 3 mg PO DAILY Potassium Chloride 20 meq PO DAILY Multivitamin 1 tablet PO DAILY Magnesium Oxide 400 mg [Mag-Ox 400] 400 mg PO DAILY Linagliptin [Tradjenta] 1 tablet PO DAILY Furosemide 20 mg [Lasix 20 mg] 40 mg PO DAILY Sacubitril/Valsartan [Entresto 24 mg-26 mg Tablet] 24 - 26 mg PO DAILY Instructions: Preventing Falls in Older Adults, Generalized Weakness (DC) Additional Instructions: ENVIVE GROUP HOME ORDERS: PT/OT EVAL AND TREAT CONTINUE MED LIST ATTACHED FOR CURRENT MED ORDERS HEART HEALTHY DIET LIMITATIONS PER LUJohanny PER ORDERS FROM CARDIOLOGY AFTER PPM PLACEMENT INVANZ (ERTAPENEM) ONE GRAM IV DAILY TO BEGIN 12/09/22 SALINE LOCK WITH ROUTINE NORMAL SALINE FLUSHES PT TO TAKE 3 MG WARFARIN DAILY AND HAVE A PT INR DRAWN EVERY THURSDAY STARTING THIS THURSDAY Follow up with: BAUTISTA HUYNH [CONSULTING PHYSICIAN] - 12/09/22 10:00 am Forms: Transfer Record [employer]
[2022-12-09] MEDS ORDERED: LASIX 20 MG PO SCH (10:00)
[2022-12-09] MEDS ORDERED: Coumadin 3 MG PO SCH (18:00)
== END 2022-12-08 17:55 ==
LOC: ED 14:21 → MED SURG 17:30
PROVIDERS: ADMIT Family Medicine; ATTEND Family Medicine
DX: N39.0 Urinary tract infection, site not specified (principal); B96.29 Other Escherichia coli [E. coli] as the cause of diseases classified elsewhere; I49.5 Sick sinus syndrome; I11.0 Hypertensive heart disease with heart failure; I50.9 Heart failure, unspecified; E11.9 Type 2 diabetes mellitus without complications; R53.1 Weakness; W19.XXXA Unspecified fall, initial encounter; Z79.899 Other long term (current) drug therapy; Z20.828 Contact with and (suspected) exposure to other viral communicable diseases; Z79.01 Long term (current) use of anticoagulants
CPT/HCPCS: 0241U; 36000; 36415; 71045; 71250; 80048; 80053; 80162; 81001; 83605; 83735; 83880; 84134; 84484; 85025; 85610; 85730; 87040; 87077; 87086; 87186; 93005; 94640; 94760; 96365; 99285; G0378; J2543; A9270-GY

== ENCOUNTER 2023-01-24 10:02 | Inpatient (IN) | payer MEDICARE, OTHER ==
[2023-01-24] MEDS ORDERED: Robitussin-Dm Syrup PO ONE (10:14)
[2023-01-24] MEDS ORDERED: solu-MEDROL 125 MG, Sterile H2O 10 ml 2 ML IV ONE ×2 (10:14)
[2023-01-24] MEDS ORDERED: DUONEB 0.5-3 MG/3 ml Neb IH ONE ×2 (10:14→10:29)
[2023-01-24] MEDS ORDERED: ROCEPHIN 1 Gm-D5w 50 ml Bag** 1 G/50 ML IVPB IV STA (10:20)
--- NOTE | 2023-01-24 10:21 | ERPHSYRPT ---
- History of Present Illness Time Seen by Provider: 01/24/23 12:14 Source: patient, family Exam Limitations: no limitations Physician History: pt is 82 yr old and was going to get infusion of antibiotics today but they found her lungs congested and sent to ER. Hx of persisting cough for 3 weeks and CHF with recent install of defib/pacer and Ht Hx confirmed Hx by separate source of family in ER. Chest is congested with rales and rhonchi throughout. No pedal edema. Abd nontender and no GI symptoms. Recent UTI - was having Tx today. Discussed risks and benefits of labs , CXR D dimer, CBC CMP, INR, BNP, Trops, with family and pt and they wish to proceed - also after D dimer elevqted discussed risk and benefit and again they wish to proceed with PE Protocol. Timing/Duration: week(s) Cough Quality/Degree: productive cough Possible Cause: no prior episodes Modifying Factors: Improves With: nothing, coughing Associated Symptoms: cough Allergies/Adverse Reactions: No Known Drug Allergies Allergy (Verified 01/24/23 10:09) Home Medications: Amiodarone HCl 200 mg [Cordarone 200 MG] 200 mg PO DAILY 11/18/22 [History] Cholecalciferol (Vitamin D3) [Vitamin D] 5,000 units PO DAILY 11/18/22 [History] Fluticasone/Umeclidin/Vilanter [Trelegy Ellipta 100-62.5-25] 1 puff IH DAILY 11/18/22 [History] Carvedilol 12.5 mg [Coreg 12.5 mg] 12.5 mg PO BID 12/05/22 [History] Digoxin 0.125 mg Tablet [Lanoxin 0.125MG TABLET] 0.125 mg PO DAILY 12/05/22 [History] Furosemide 20 mg [Lasix 20 mg] 40 mg PO DAILY 12/05/22 [History] Linagliptin [Tradjenta] 1 tablet PO DAILY 12/05/22 [History] Magnesium Oxide 400 mg [Mag-Ox 400] 400 mg PO DAILY 12/05/22 [History] Multivitamin 1 tablet PO DAILY 12/05/22 [History] Potassium Chloride 20 meq PO DAILY 12/05/22 [History] Sacubitril/Valsartan [Entresto 24 mg-26 mg Tablet] 24 - 26 mg PO DAILY 12/05/22 [History] Warfarin Sodium 3 mg PO DAILY 12/05/22 [History] Hx Tetanus, Diphtheria Vaccination/Date Given: Yes Hx Influenza Vaccination/Date Given: Yes Hx Pneumococcal Vaccination/Date Given: Yes Travel Risk - Vaccine Status Have you recieved a Covid-19 vaccination: No - Review of Systems Constitutional: No Fever, No Chills Eyes: No Symptoms Ears, Nose, & Throat: No Symptoms Respiratory: Cough, No Dyspnea Cardiac: No Chest Pain, No Edema, No Syncope Abdominal/Gastrointestinal: No Abdominal Pain, No Nausea, No Vomiting, No Diarrhea Genitourinary Symptoms: Other (UTI recent), No Dysuria Musculoskeletal: No Back Pain, No Neck Pain Skin: No Symptoms, No Rash Neurological: No Dizziness, No Focal Weakness, No Sensory Changes Psychological: No Symptoms Endocrine: No Symptoms All Other Systems: Reviewed and Negative - Past Medical History Pertinent Past Medical History: Yes Neurological History: No Pertinent History ENT History: No Pertinent History Cardiac History: Arrhythmia, Congestive Heart Failure, Hypertension Respiratory History: COPD Endocrine Medical History: Diabetes Type II Musculoskeletal History: Arthritis GI Medical History: Gallbladder Disease, Polyps History: No Pertinent History Psycho-Social History: No Pertinent History Female Reproductive Disorders: No Pertinent History Other Medical History: scheduled for PPM/ defib 12/03/[address] Harden - Past Surgical History Past Surgical History: Yes Neuro Surgical History: No Pertinent History Cardiac: Internal Defibrillator, Pacemaker Respiratory: No Pertinent History Gastrointestinal: Cholecystectomy Genitourinary: No Pertinent History Musculoskeletal: Joint Replacement Female Surgical History: Hysterectomy Other Surgical History: lucy knees - Social History Smoking Status: Never smoker Exposure to second hand smoke: No Drug Use: none Patient Lives Alone: No - Nursing Vital Signs Nursing Vital Signs: Initial Vital Signs Temperature 96.3 F 01/24/23 09:50 Pulse Rate 61 01/24/23 09:50 Respiratory Rate 20 01/24/23 09:50 Blood Pressure 129/46 01/24/23 09:50 O2 Sat by Pulse Oximetry 95 01/24/23 09:50 Pain Scale Pain Intensity 4 - Physical Exam General Appearance: no apparent distress, alert Eye Exam: PERRL/EOMI, eyes nml inspection Ears, Nose, Throat Exam: normal ENT inspection, TMs normal, pharynx normal, moist mucous membranes Neck Exam: normal inspection, non-tender, supple, full range of motion Respiratory Exam: crackles/rales, rhonchi, wheezing, No respiratory distress, No stridor Cardiovascular Exam: regular rate/rhythm, normal heart sounds Gastrointestinal/Abdomen Exam: soft, No tenderness Pelvic Exam: deferred Rectal Exam: deferred Back Exam: normal inspection, No CVA tenderness, No vertebral tenderness Extremity Exam: normal inspection, normal range of motion Neurologic Exam: alert, oriented x 3, cooperative, normal mood/affect, sensation nml, No motor deficits Skin Exam: normal color, warm, dry, No rash Lymphatic Exam: No adenopathy SpO2 Interpretation: normal O2 Delivery: Room Air - Course Nursing assessment & vital signs reviewed: Yes EKG Interpreted by Me: Left [place] Deviation, Left Bundle Branch Block, Non- specific ST Changes, Other (paced rythym) - Radiology Exams Chest X-ray Interpretation: Reviewed by me, No Infiltrates, Other (left nodule and CHF) - CT Exams Chest CT Interpretation: Tele-radiologist Report, No PE, Other (patchy infiltrates) Ordered Tests: Active Orders 24 hr Category Date Time Status Sample Taker Operator STAT Care 01/24/23 10:17 Active EKG-ER Only STAT Care 01/24/23 10:14 Active IV Insertion STAT Care 01/24/23 10:14 Active Pulse Oximetry (ED) STAT Care 01/24/23 10:14 Active CHEST 1 VIEW (PORTABLE) Stat Exams 01/24/23 10:15 Taken CHEST WITH CONTRAST [CT] Stat Exams 01/24/23 11:58 Completed BNPII [NT PRO BNPII] Stat Lab 01/24/23 Completed CBC W DIFF Stat Lab 01/24/23 11:03 Completed CMP Stat Lab 01/24/23 11:03 Completed CULTURE,URINE Stat Lab 01/24/23 12:26 Received D-DIMER QUANTITATIVE Stat Lab 01/24/23 11:03 Completed PROTIME WITH INR Stat Lab 01/24/23 11:03 Completed TROPONIN Q4H Lab 01/24/23 11:03 Completed TROPONIN Q4H Lab 01/24/23 13:14 Received TROPONIN Q4H Lab 01/24/23 18:15 Ordered UA W/RFX UR CULTURE Stat Lab 01/24/23 12:26 Completed Respiratory Therapy Assessment DAILY RT 01/24/23 10:39 Active Medication Summary Generic Name Dose Route Start Last Admin Trade Name Freq PRN Reason Stop Dose Admin Ertapenem 1 g/ Sodium Chloride 100 mls @ 200 mls/hr 01/24/23 11:00 01/24/23 10:51 IV 01/30/23 11:29 200 mls/hr Q24H JERRY Administration Sodium Chloride 1,000 mls @ 50 mls/hr 01/24/23 10:15 01/24/23 11:06 Sodium Chloride 0.9% 1000 Ml IV 02/23/23 10:14 50 mls/hr .Q20H JERRY Administration Discontinued Medications Generic Name Dose Route Start Last Admin Trade Name Freq PRN Reason Stop Dose Admin Albuterol/Ipratropium 3 ml 01/24/23 10:14 01/24/23 10:30 Ipratropium/Albuterol Sulfate 3 Ml Ampul.Neb IH 01/24/23 10:15 3 ml STAT ONE Administration Albuterol/Ipratropium Confirm 01/24/23 10:29 Ipratropium/Albuterol Sulfate 3 Ml Ampul.Neb Administered 01/24/23 10:30 Dose 3 ml IH .STK-MED ONE Methylprednisolone Sodium 0 mg 01/24/23 10:14 01/24/23 11:05 Succinate 125 mg/ Sterile IV 01/24/23 10:15 125 mg Water 2 ml STAT ONE Administration Guaifenesin/Dextromethorphan 10 ml 01/24/23 10:14 01/24/23 11:06 Guaifenesin/D-Methorphan Hb 118 Ml Syrup PO 01/24/23 10:15 10 ml STAT ONE Administration Ceftriaxone Sodium/Dextrose 1 g in 50 mls @ 100 mls/hr 01/24/23 10:20 01/24/23 11:38 Rocephin 1 Gm-D5w 50 Ml Bag IV 01/24/23 10:49 Infused STAT STA Infusion Ceftriaxone Sodium/Dextrose Confirm 01/24/23 11:00 Rocephin 1 Gm-D5w 50 Ml Bag Administered 01/24/23 11:01 Dose 1 g in 50 mls @ ud IV .STK-MED ONE Methylprednisolone Sodium Succinate Confirm 01/24/23 11:00 Methylprednis Sod Succ 125 Mg/2 Ml Vial Administered 01/24/23 11:01 Dose 125 mg .ROUTE .[email or web address] ONE Sterile Water Confirm 01/24/23 11:00 Water For Injection,Sterile 10 Ml Vial Administered 01/24/23 11:01 Dose 10 ml IJ .[employer] ONE Lab/Rad Data: Laboratory Result Diagrams 01/24/23 11:03 01/24/23 11:03 Laboratory Results 01/24/23 01/24/23 01/24/23 Range/Units Unknown 12:26 11:03 WBC (4.0-10.5) x10^3/uL RBC (4.1-5.4) x10^6/uL Hgb (12.0-16.0) g/dL Hct (35-47) % MCV (78-100) fL MCH (26-32) pg MCHC (32-36) g/dL RDW (11.5-14.0) % Plt Count (150-450) x10^3/uL MPV (7.5-11.0) fL Gran % (36.0-66.0) % Immature Gran % (Auto) (0.00-0.4) % Nucleat RBC Rel Count (0.00-0.1) % Eos # (Auto) (0-0.5) x10^3/uL Immature Gran # (Auto) (0.00-0.03) x10^3u/L Absolute Lymphs (auto) (1.0-4.6) x10^3/uL Absolute Monos (auto) (0.0-1.3) x10^3/uL Absolute Nucleated RBC (0.00-0.01) x10^3u/L Lymphocytes % (24.0-44.0) % Monocytes % (0.0-12.0) % Eosinophils % (0.00-5.0) % Basophils % (0.0-0.4) % Absolute Granulocytes (1.4-6.9) x10^3/uL Basophils # (0-0.4) x10^3/uL PT 15.3 H (9.4-12.5) SECONDS INR 1.44 (0.8-3.0) D-Dimer 2.90 H* (0.0-0.50) mg/L Sodium (137-145) mmol/L Potassium (3.5-5.1) mmol/L Chloride (98-107) mmol/L Carbon Dioxide (22-30) mmol/L Anion Gap (5-15) MEQ/L BUN (7-17) mg/dL Creatinine (0.52-1.04) mg/dL Estimated GFR ML/MIN Glucose (74-106) mg/dL Calcium (8.4-10.2) mg/dL Total Bilirubin (0.2-1.3) mg/dL AST (14-36) U/L ALT (0-35) U/L Alkaline Phosphatase (38-126) U/L Troponin I (0.000-0.034) ng/mL NT-Pro-B Natriuret Pep 1670 (<300) pg/mL Serum Total Protein (6.3-8.2) g/dL Albumin (3.5-5.0) g/dL Urine Color Yellow (Yellow) Urine Appearance Clear (Clear) Urine pH 7.5 (4.6-8.0) Ur Specific [place] 1.010 (1.005-1.030) Urine Protein Negative (Negative) Urine Glucose (UA) Negative (Negative) mg/dL Urine Ketones Negative (Negative) Urine Blood Negative (Negative) Urine Nitrite Positive A (Negative) Urine Bilirubin Negative (Negative) Urine Urobilinogen 1.0 A (0.2) mg/dL Ur Leukocyte Esterase Small A (Negative) U Hyaline Cast (Auto) NONE SEEN (0-2) /LPF Urine Microscopic RBC 0-2 (0-5) /HPF Urine Microscopic WBC 21-50 A (0-5) /HPF Ur Epithelial Cells None Seen (None Seen) /HPF Urine Bacteria Rare A (None Seen) /HPF Urine Culture Reflexed YES (NO) Influenza Type A Ag (NEGATIVE) Influenza Type B Ag (NEGATIVE) RSV (PCR) (NEGATIVE) SARS-CoV-2 (PCR) (NEGATIVE) Group A Strep Antibody (NEGATIVE) 01/24/23 01/24/23 01/24/23 Range/Units 11:03 11:03 11:03 WBC (4.0-10.5) x10^3/uL RBC (4.1-5.4) x10^6/uL Hgb (12.0-16.0) g/dL Hct (35-47) % MCV (78-100) fL MCH (26-32) pg MCHC (32-36) g/dL RDW (11.5-14.0) % Plt Count (150-450) x10^3/uL MPV (7.5-11.0) fL Gran % (36.0-66.0) % Immature Gran % (Auto) (0.00-0.4) % Nucleat RBC Rel Count (0.00-0.1) % Eos # (Auto) (0-0.5) x10^3/uL Immature Gran # (Auto) (0.00-0.03) x10^3u/L Absolute Lymphs (auto) (1.0-4.6) x10^3/uL Absolute Monos (auto) (0.0-1.3) x10^3/uL Absolute Nucleated RBC (0.00-0.01) x10^3u/L Lymphocytes % (24.0-44.0) % Monocytes % (0.0-12.0) % Eosinophils % (0.00-5.0) % Basophils % (0.0-0.4) % Absolute Granulocytes (1.4-6.9) x10^3/uL Basophils # (0-0.4) x10^3/uL PT (9.4-12.5) SECONDS INR (0.8-3.0) D-Dimer (0.0-0.50) mg/L Sodium (137-145) mmol/L Potassium (3.5-5.1) mmol/L Chloride (98-107) mmol/L Carbon Dioxide (22-30) mmol/L Anion Gap (5-15) MEQ/L BUN (7-17) mg/dL Creatinine (0.52-1.04) mg/dL Estimated GFR ML/MIN Glucose (74-106) mg/dL Calcium (8.4-10.2) mg/dL Total Bilirubin (0.2-1.3) mg/dL AST (14-36) U/L ALT (0-35) U/L Alkaline Phosphatase (38-126) U/L Troponin I 0.023 (0.000-0.034) ng/mL NT-Pro-B Natriuret Pep (<300) pg/mL Serum Total Protein (6.3-8.2) g/dL Albumin (3.5-5.0) g/dL Urine Color (Yellow) Urine Appearance (Clear) Urine pH (4.6-8.0) Ur Specific [place] (1.005-1.030) Urine Protein (Negative) Urine Glucose (UA) (Negative) mg/dL Urine Ketones (Negative) Urine Blood (Negative) Urine Nitrite (Negative) Urine Bilirubin (Negative) Urine Urobilinogen (0.2) mg/dL Ur Leukocyte Esterase (Negative) U Hyaline Cast (Auto) (0-2) /LPF Urine Microscopic RBC (0-5) /HPF Urine Microscopic WBC (0-5) /HPF Ur Epithelial Cells (None Seen) /HPF Urine Bacteria (None Seen) /HPF Urine Culture Reflexed (NO) Influenza Type A Ag NEGATIVE (NEGATIVE) Influenza Type B Ag NEGATIVE (NEGATIVE) RSV (PCR) NEGATIVE (NEGATIVE) SARS-CoV-2 (PCR) NEGATIVE (NEGATIVE) Group A Strep Antibody NOT DETECTED (NEGATIVE) 01/24/23 01/24/23 Range/Units 11:03 11:03 WBC 8.8 (4.0-10.5) x10^3/uL RBC 4.11 (4.1-5.4) x10^6/uL Hgb 12.5 (12.0-16.0) g/dL Hct 39.3 (35-47) % MCV 95.6 (78-100) fL MCH 30.4 (26-32) pg MCHC 31.8 L (32-36) g/dL RDW 15.9 H (11.5-14.0) % Plt Count 208 (150-450) x10^3/uL MPV 10.2 (7.5-11.0) fL Gran % 73.2 H (36.0-66.0) % Immature Gran % (Auto) 0.8 H (0.00-0.4) % Nucleat RBC Rel Count 0.0 (0.00-0.1) % Eos # (Auto) 0.06 (0-0.5) x10^3/uL Immature Gran # (Auto) 0.07 H (0.00-0.03) x10^3u/L Absolute Lymphs (auto) 1.17 (1.0-4.6) x10^3/uL Absolute Monos (auto) 0.99 (0.0-1.3) x10^3/uL Absolute Nucleated RBC 0.00 (0.00-0.01) x10^3u/L Lymphocytes % 13.3 L (24.0-44.0) % Monocytes % 11.2 (0.0-12.0) % Eosinophils % 0.7 (0.00-5.0) % Basophils % 0.8 (0.0-0.4) % Absolute Granulocytes 6.46 (1.4-6.9) x10^3/uL Basophils # 0.07 (0-0.4) x10^3/uL PT (9.4-12.5) SECONDS INR (0.8-3.0) D-Dimer (0.0-0.50) mg/L Sodium 138 (137-145) mmol/L Potassium 3.7 (3.5-5.1) mmol/L Chloride 95 L (98-107) mmol/L Carbon Dioxide 31 H (22-30) mmol/L Anion Gap 16.1 H (5-15) MEQ/L BUN 29 H (7-17) mg/dL Creatinine 0.76 (0.52-1.04) mg/dL Estimated GFR > 60.0 ML/MIN Glucose 118 H (74-106) mg/dL Calcium 9.0 (8.4-10.2) mg/dL Total Bilirubin 1.00 (0.2-1.3) mg/dL AST 47 H (14-36) U/L ALT 22 (0-35) U/L Alkaline Phosphatase 92 (38-126) U/L Troponin I (0.000-0.034) ng/mL NT-Pro-B Natriuret Pep (<300) pg/mL Serum Total Protein 8.2 (6.3-8.2) g/dL Albumin 4.0 (3.5-5.0) g/dL Urine Color (Yellow) Urine Appearance (Clear) Urine pH (4.6-8.0) Ur Specific [place] (1.005-1.030) Urine Protein (Negative) Urine Glucose (UA) (Negative) mg/dL Urine Ketones (Negative) Urine Blood (Negative) Urine Nitrite (Negative) Urine Bilirubin (Negative) Urine Urobilinogen (0.2) mg/dL Ur Leukocyte Esterase (Negative) U Hyaline Cast (Auto) (0-2) /LPF Urine Microscopic RBC (0-5) /HPF Urine Microscopic WBC (0-5) /HPF Ur Epithelial Cells (None Seen) /HPF Urine Bacteria (None Seen) /HPF Urine Culture Reflexed (NO) Influenza Type A Ag (NEGATIVE) Influenza Type B Ag (NEGATIVE) RSV (PCR) (NEGATIVE) SARS-CoV-2 (PCR) (NEGATIVE) Group A Strep Antibody (NEGATIVE) - Progress Progress: improved, re-examined Air Movement: good Progress Note: 01/24/23 12:18 additional social/physical determinant is difficulty for the patient due to impaired hearing. 01/24/23 14:[address] Garcias in consultation and pt and family and all agree best to place pt in on obs for trops BNP and exac COPD as well as her invasive UTI. Blood Culture(s) Obtained: No Antibiotics given: Yes Discussed with .: Arnel Will see patient in: hospital (observation) Counseled pt/family regarding: lab results, diagnosis, need for follow-up, rad results Medical Desision Making - Independent Historian Additional History obtained from: Child - Discussion of managment Care discussed with:: on-call "doc" Reviewed:: Test results, Need for additional workup Agreed on:: Treatment plan, need for follow-up, decision to admit, place in obs Will see patient: in hospital - Diagnostic Testing Diagnostic test were ordered, analyzed, and reviewed by me: Yes Radiological Interpretation: Reviewed by me, Teleradiologist Report - Risk of complications The pt has a high risk of morbidity or mortality based on: Drug therapy requiring intensive monitoring for toxicity, Decision regarding hospitilization or escalation of hosp level of care - Departure Departure Disposition: Observation Clinical Impression: CHF (congestive heart failure), Nodule of left lung, Exacerbation COPD, Resi stant E Coli UTI, Elevated troponin, under therapeutic anticoagulation Condition: Good Critical Care Time: No Referrals: [facility] [Primary Care Provider] - Follow up/PCP as directed Instructions: Heart Failure
[2023-01-24] MEDS: Invanz *** 1 G in Sodium Chloride 100ML MINI-BAG PLUS 100 ML IV SCH (10:51)
[2023-01-24] MEDS ORDERED: ROCEPHIN 1 Gm-D5w 50 ml Bag** 1 G/50 ML IVPB IV ONE (11:00)
[2023-01-24] MEDS ORDERED: Sterile H2O 10 ml IJ ONE (11:00)
[2023-01-24] MEDS ORDERED: solu-MEDROL ONE (11:00)
[2023-01-24 11:04] LABS: Absolute Neutrophil Ct (ANC) 6.46 x10^3/uL (1.4-6.9); BASOPHIL % 0.8 % (0.0-0.4); Basophil (Absolute #) 0.07 x10^3/uL (0-0.4); Eosinophil % 0.7 % (0.00-5.0); Eosinophil (Absolute #) 0.06 x10^3/uL (0-0.5); Hematocrit 39.3 % (35-47); Hemoglobin 12.5 g/dL (12.0-16.0); IMMATURE GRAN # 0.07 x10^3u/L (0.00-0.03); IMMATURE GRAN % 0.8 % (0.00-0.4); Lymphocyte (Absolute #) 1.17 x10^3/uL (1.0-4.6); Lymphocytes % 13.3 % (24.0-44.0); Mean Cell Volume 95.6 fL (78-100); Mean Corpuscular Hemoglobin 30.4 pg (26-32); Mean Corpuscular Hgb Concent. 31.8 g/dL (32-36); Mean Platelet Volume 10.2 fL (7.5-11.0); Monocyte (Absolute #) 0.99 x10^3/uL (0.0-1.3); Monocytes % 11.2 % (0.0-12.0); Neutrophil % 73.2 % (36.0-66.0); Platelet Count 208 x10^3/uL (150-450); Red Blood Count 4.11 x10^6/uL (4.1-5.4); Red Cell Distribution Width 15.9 % (11.5-14.0); White Blood Count 8.8 x10^3/uL (4.0-10.5)
[2023-01-24] MEDS: Sodium Chloride 0.9% 1000 ML 1,000 ML IV SCH ×2 (11:06→22:50)
[2023-01-24 11:11] LABS: ALKALINE PHOSPHATASE 92 U/L (38-126); ANION GAP 16.1 MEQ/L (5-15); BLOOD UREA NITROGEN 29 mg/dL (7-17); CHLORIDE 95 mmol/L (98-107); Carbon Dioxide 31 mmol/L (22-30); Creatinine 1 0.76 mg/dL (0.52-1.04); EST GLOMERULAR FILTRATION RATE > 60.0 ML/MIN; Glucose 118 mg/dL (74-106); Potassium 3.7 mmol/L (3.5-5.1); SGOT/AST 47 U/L (14-36); SGPT/ALT 22 U/L (0-35); SODIUM 138 mmol/L (137-145); Total Protein 8.2 g/dL (6.3-8.2)
[2023-01-24 11:27] LABS: INFLUENZA A NEGATIVE (NEGATIVE); INFLUENZA B NEGATIVE (NEGATIVE); RESPIRATORY SYNCTIAL VIRUS NEGATIVE (NEGATIVE); SARS-CoV-2 Xpert Express NEGATIVE (NEGATIVE)
[2023-01-24 11:32] LABS: INR 1.44 (0.8-3.0); PROTIME 15.3 SECONDS (9.4-12.5)
[2023-01-24 11:47] LABS: D-DIMER QUANTITATIVE 2.9 mg/L (0.0-0.50)
[2023-01-24 12:14] LABS: Appearance Clear (Clear); Bilirubin Negative (Negative); Blood Negative (Negative); Glucose, Urine Negative (Negative); Ketones Negative (Negative); Leukocyte Esterase Small (Negative); Nitrite Positive (Negative); Ph 7.5 (4.6-8.0); Protein,Urine Dip Negative (Negative)
[2023-01-24 12:34] LABS: Bacteria Rare /HPF (None Seen); Epithelial Cells None Seen /HPF (None Seen); Hyaline Casts NONE SEEN /LPF (0-2); RBC 0-2 /HPF (0-5); WBC 21-50 /HPF (0-5)
[2023-01-24 12:35] LABS: ADD URINE CULTURE? YES (NO)
--- NOTE | 2023-01-24 13:48 | XRAY ---
CLINICAL HISTORY:elevated D dimer with resp symptoms COMPARISON:None; TECHNIQUES:Axial CT images of the chest were acquired with the administration of intravenous contrast. Coronal and sagittal reconstructions were also obtained. 80 cc of Isovue 370 was given as an intravenous contrast; FINDINGS: Bilateral diffuse mainly peripheral patchy areas of air space opacities with thickened interstitium and interstitial reticular bands seen more evident at bilateral upper and right lower lobes, mainly in central distribution with peripheral sparing. Mild pleural thickening is seen in bilateral basal and posterior. Moderate cardiomegaly noted. Dilated pulmonary artery seen measuring about 3.7cm. No signs of major embolism seen. The scanned pulmonary parenchyma shows no definite consolidative lesions. No free or encysted pleural effusion. There is no pericardial effusion. No pathologically enlarged mediastinal, hilar, or axillary lymph node identified. There is no definite mass lesion in the chest wall. Scanned upper abdomen shows bilateral bulky adrenal glands. IMPRESSION: Bilateral diffuse mainly peripheral patchy areas of air space opacities with thickened interstitium and interstitial reticular bands seen more evident at bilateral upper and right lower lobes. Main differential include viral pneumonia, versus chronic esinophilic pneumonia, clinical correlation and follow-up are recommended, possible opportunistic infections such as PCP cannot be excluded, advise clinical correlation. Moderate cardiomegaly. Pulmonary hypertension. Electronically Signed by: Aly Kenny MD. (01/24/2023 12:43:46 [employer])
[2023-01-24] MEDS: DUONEB 0.5-3 MG/3 ml Neb IH SCH ×3 (15:26→23:05)
[2023-01-24] MEDS ORDERED: MEDICATION INTERVENTION MC SCH ×2 (16:00)
[2023-01-24] MEDS: solu-MEDROL 60 MG, Sterile H2O 10 ml 2 ML IV SCH ×2 (18:42)
[2023-01-24] MEDS: Coumadin 3 MG PO SCH (18:43)
[2023-01-24] MEDS: Advair Hfa 115/21 Common canister IH SCH (18:53)
--- NOTE | 2023-01-24 21:08 | XRAY ---
Indication: Productive cough. Comparison: December 05, 2022 Portable chest again demonstrates right base patchy airspace disease unchanged. New subtle diffuse bilateral patchy groundglass airspace disease without consolidation/large effusion. Heart remains enlarged with left pacemaker. Bony thorax intact.
[2023-01-24] MEDS: COREG 12.5 MG PO SCH (22:49)
[2023-01-24] MEDS: Pepcid 20 MG VIAL IV SCH (22:49)
[2023-01-25] MEDS: solu-MEDROL 60 MG, Sterile H2O 10 ml 2 ML IV SCH ×10 (00:11→23:07)
[2023-01-25] MEDS: DUONEB 0.5-3 MG/3 ml Neb IH SCH (02:55)
[2023-01-25] MEDS ORDERED: solu-MEDROL ONE (05:48)
[2023-01-25 06:18] LABS: INR 1.59 (0.8-3.0); PROTIME 16.7 SECONDS (9.4-12.5)
[2023-01-25] MEDS: PROVENTIL 2.5 MG/3 ML NEB IH SCH ×5 (07:36→23:13)
[2023-01-25] MEDS: Spiriva 18 Mcg/Cap Inhaler IH SCH (07:38)
[2023-01-25] MEDS: Advair Hfa 115/21 Common canister IH SCH ×2 (07:38→18:44)
[2023-01-25] MEDS: VITAMIN D PO SCH (08:57)
[2023-01-25] MEDS: Lanoxin 0.125MG TABLET PO SCH (08:58)
[2023-01-25] MEDS: Pepcid 20 MG VIAL IV SCH ×2 (08:59→21:17)
[2023-01-25] MEDS: MAG-OX 400 PO SCH (09:00)
[2023-01-25] MEDS: THERAGRAN MULTIVITAMIN PO SCH (09:00)
[2023-01-25] MEDS: Cordarone 200 MG PO SCH (09:00)
[2023-01-25] MEDS: Klor Con PO SCH (09:00)
[2023-01-25] MEDS: LASIX 20 MG PO SCH (09:01)
[2023-01-25] MEDS: COREG 12.5 MG PO SCH ×2 (09:01→21:17)
[2023-01-25] MEDS ORDERED: NON-FORMULARY ITEM (Fluticasone/Umeclidin/Vilanter [Trelegy Ellipta 100-62.5-25] 1 EACH Bl IH SCH (10:00)
[2023-01-25] MEDS ORDERED: NON-FORMULARY ITEM (Multivitamin [Multivitamin] 1 EACH Tablet) PO SCH (10:00)
[2023-01-25] MEDS ORDERED: NON-FORMULARY ITEM (Sacubitril/Valsartan [Entresto 24 Mg-26 Mg Tablet] 1 EACH Tablet) PO SCH (10:00)
[2023-01-25] MEDS ORDERED: NON-FORMULARY ITEM (Ertapenem Sodium *** [Invanz ***] 1 G/VIAL Vial) IV SCH (10:00)
[2023-01-25] MEDS ORDERED: ROCEPHIN 1 Gm-D5w 50 ml Bag** 1 G/50 ML IVPB IV SCH (10:00)
[2023-01-25] MEDS ORDERED: NON-FORMULARY ITEM (Potassium Chloride [Potassium Chloride] 20 MEQ Tab.Er.Prt) PO SCH (10:00)
[2023-01-25] MEDS ORDERED: LINAGLIPTIN 5 MG PO SCH (10:00)
[2023-01-25] MEDS: Invanz *** 1 G in Sodium Chloride 100ML MINI-BAG PLUS 100 ML IV SCH (10:29)
[2023-01-25] MEDS ORDERED: PHARMACY DOSING REQUEST MC ONE (12:53)
--- NOTE | 2023-01-25 13:28 | PCM.HP ---
History of Present Illness - Chief Complaint Chief Complaint: EXAC, COPD History of Present Illness: is a 82 year old female patient of mine with multiple medical issues. Patient was in Outpatient Infusion for IV antibiotic treatment of ESBL E.Coli UTI and nurse noted wheezing and cough so patient was taken to ER where work up revealed COPD exacerbation and elevated BNP. PMHx includes HTN ,Afib,CHF,recent pacemaker placed,LTanticoagulant,DM2,recurrent UTIs,GBdz,Arthritis,mild memory impairment when ill. - Review of Systems Constitutional: Fatigue Eyes: No Symptoms Ears, Nose, & Throat: No Symptoms Respiratory: Cough, Wheezing Cardiac: No Symptoms Genitourinary Symptoms: Dysuria, Frequency Medications & Allergies Home Medications: Home Medication List Amiodarone HCl 200 mg [Cordarone 200 MG] 200 mg PO DAILY 11/18/22 [History Confirmed 01/24/23] Cholecalciferol (Vitamin D3) [Vitamin D] 5,000 units PO DAILY 11/18/22 [History Confirmed 01/24/23] Fluticasone/Umeclidin/Vilanter [Trelegy Ellipta 100-62.5-25] 1 puff IH DAILY 11/18/22 [History Confirmed 01/24/23] Carvedilol 12.5 mg [Coreg 12.5 mg] 12.5 mg PO BID 12/05/22 [History Confirmed 01/24/23] Digoxin 0.125 mg Tablet [Lanoxin 0.125MG TABLET] 0.125 mg PO DAILY 12/05/22 [History Confirmed 01/24/23] Furosemide 20 mg [Lasix 20 mg] 40 mg PO DAILY 12/05/22 [History Confirmed 01/24/23] Linagliptin [Tradjenta] 1 tablet PO DAILY 12/05/22 [History Confirmed 01/24/23] Magnesium Oxide 400 mg [Mag-Ox 400] 400 mg PO DAILY 12/05/22 [History Confirmed 01/24/23] Multivitamin 1 tablet PO DAILY 12/05/22 [History Confirmed 01/24/23] Potassium Chloride 20 meq PO DAILY 12/05/22 [History Confirmed 01/24/23] Sacubitril/Valsartan [Entresto 24 mg-26 mg Tablet] 24 - 26 mg PO DAILY 12/05/22 [History Confirmed 01/24/23] Warfarin Sodium 3 mg PO DAILY 12/05/22 [History Confirmed 01/24/23] Ertapenem Sodium [Invanz ] 1,000 g IV DAILY 6 Days 12/08/22 [Rx Confirmed 01/24/23] Allergies/Adverse Reactions: Allergies Allergy/AdvReac Type Severity Reaction Status Date / Time No Known Drug Allergies Allergy Verified 01/24/23 10:09 - Past Medical History Past Medical History: Yes Neurological History: No Pertinent History ENT History: No Pertinent History Cardiac History: Arrhythmia, Congestive Heart Failure, Hypertension Respiratory History: COPD Endocrine Medical History: Diabetes Type II Musculoskelatal History: Arthritis GI Medical History: Gallbladder Disease, Polyps History: No Pertinent History Pyscho-Social History: No Pertinent History Reproductive Disorders: No Pertinent History Comment: DAUGHTER AND PATIENT BOTH DENY BEING DIABETIC - Female History Are you now?: No - Past Surgical History Past Surgical History: Yes Neuro Surgical History: No Pertinent History Cardiac History: Internal Defibrillator, Pacemaker Respiratory Surgery: No Pertinent History GI Surgical History: Cholecystectomy Genitourinary Surgical Hx: No Pertinent History Musculskeletal Surgical Hx: Joint Replacement Female Surgical History: Hysterectomy Other Surgical History: lucy knees - Social History Smoking Status: Never smoker Exposure to second hand smoke: No Alcohol: None Drug Use: none - Physical Exam Vital Signs: Vital Signs - 24 hr Temp Pulse Resp BP BP Pulse Ox 01/25/23 11:42 68 16 95 01/25/23 11:30 97.9 F 58 L 16 120/57 95 01/25/23 08:58 74 135/62 01/25/23 07:40 64 16 96 01/25/23 06:37 97.8 F 65 16 135/62 94 L 01/25/23 03:42 97.9 F 75 17 135/62 95 01/25/23 02:57 23 01/25/23 00:00 97.9 F 63 24 147/69 93 L 01/24/23 23:05 60 22 95 01/24/23 19:31 98.1 F 64 16 115/55 91 L 01/24/23 18:50 60 20 91 L 01/24/23 15:49 98.0 F 60 16 139/63 95 01/24/23 15:26 60 16 95 01/24/23 15:03 98.0 F 60 16 139/63 95 General Appearance: no apparent distress, lethargy Neurologic Exam: alert (was asleep sitting up in bedside chair nodding off to sleep but alert when awakened), oriented x 3, cooperative, normal mood/affect Eye Exam: eyes nml inspection Ears, Nose, Throat Exam: moist mucous membranes Neck Exam: normal inspection Respiratory Exam: diminished breath sounds, wheezing (fine eew right mid and upper lung,no ronchi or rales) Cardiovascular Exam: regular rate/rhythm Gastrointestinal/Abdomen Exam: soft, normal bowel sounds (n), tenderness (ontender) Rectal Exam: black stool Extremity Exam: normal inspection Skin Exam: normal color, warm, dry Results - Labs Lab/Micro Results: Lab Results-Last 24 Hours 01/24/23 01/24/23 01/24/23 Range/Units 13:14 15:03 18:38 PT (9.4-12.5) SECONDS INR (0.8-3.0) POC Glucometer (74 to 106) mg/dL Troponin I 0.017 0.018 (0.000-0.034) ng/mL NT-Pro-B Natriuret Pep 1530 (<300) pg/mL 01/24/23 01/25/23 Range/Units 20:55 05:35 PT 16.7 H (9.4-12.5) SECONDS INR 1.59 (0.8-3.0) POC Glucometer 159 H (74 to 106) mg/dL Troponin I (0.000-0.034) ng/mL NT-Pro-B Natriuret Pep (<300) pg/mL Microbiology 01/24/23 12:26 Urine Culture - Preliminary Urine, Void NO GROWTH TO DATE Accuchecks Date 01/24/23 Time 21:00 - Radiology Impressions Radiology Exams & Impressions: Radiology Procedures Category Date Time Status CHEST 1 VIEW (PORTABLE) Stat Exams 01/24/23 10:15 Completed CHEST WITH CONTRAST [CT] Stat Exams 01/24/23 11:58 Completed Assessment/Plan (1) COPD with exacerbation Current Visit: Yes Status: Acute Code(s): J44.1 - CHRONIC OBSTRUCTIVE PULMONARY DISEASE W (ACUTE) EXACERBATION (2) UTI due to extended-spectrum beta lactamase (ESBL) producing Escherichia coli Current Visit: No Status: Acute Code(s): N39.0 - URINARY TRACT INFECTION, SI TE NOT SPECIFIED; B96.29 - OTH ESCHERICHIA COLI THE CAUSE OF DISEASES CLASSD ELSWHR; Z16.12 - EXTENDED SPECTRUM BETA LACTAMASE (ESBL) RESISTANCE (3) CHF (congestive heart failure) Current Visit: Yes Status: Chronic Code(s): I50.9 - HEART FAILURE, UNSPECIFIED (4) Paroxysmal A-fib Current Visit: Yes Status: Chronic Code(s): I48.0 - PAROXYSMAL ATRIAL FIBRILLATION (5) Anticoagulant long-term use Current Visit: No Status: Chronic Assessment & Plan: Pharmacy to manage INR/dose of Warfarin Code(s): Z79.01 - FDC (CURRENT) USE OF ANTICOAGULANTS (6) DM2 (diabetes mellitus, type 2) Current Visit: Yes Status: Chronic Qualifiers: Diabetes mellitus oysterman insulin use: without snf use Assessment & Plan: diet controlled
[2023-01-25 14:09] LABS: Absolute Neutrophil Ct (ANC) 3.83 x10^3/uL (1.4-6.9); Basophil (Absolute #) 0 x10^3/uL (0-0.4); Eosinophil (Absolute #) 0 x10^3/uL (0-0.5); Hematocrit 37.5 % (35-47); Hemoglobin 11.8 g/dL (12.0-16.0); IMMATURE GRAN # 0.01 x10^3u/L (0.00-0.03); IMMATURE GRAN % 0.2 % (0.00-0.4); Lymphocyte (Absolute #) 0.95 x10^3/uL (1.0-4.6); Lymphocytes % 19.1 % (24.0-44.0); Mean Cell Volume 95.2 fL (78-100); Mean Corpuscular Hemoglobin 29.9 pg (26-32); Mean Corpuscular Hgb Concent. 31.5 g/dL (32-36); Mean Platelet Volume 10.3 fL (7.5-11.0); Monocyte (Absolute #) 0.18 x10^3/uL (0.0-1.3); Monocytes % 3.6 % (0.0-12.0); Neutrophil % 77.1 % (36.0-66.0); Platelet Count 212 x10^3/uL (150-450); Red Blood Count 3.94 x10^6/uL (4.1-5.4)
[2023-01-25 14:15] LABS: ALBUMIN 3.6 g/dL (3.5-5.0); ALKALINE PHOSPHATASE 81 U/L (38-126); ANION GAP 13.3 MEQ/L (5-15); BLOOD UREA NITROGEN 26 mg/dL (7-17); CHLORIDE 99 mmol/L (98-107); Carbon Dioxide 28 mmol/L (22-30); Creatinine 1 0.64 mg/dL (0.52-1.04); EST GLOMERULAR FILTRATION RATE > 60.0 ML/MIN; Glucose 142 mg/dL (74-106); Potassium 3.5 mmol/L (3.5-5.1); SGOT/AST 52 U/L (14-36); SGPT/ALT 21 U/L (0-35); SODIUM 136 mmol/L (137-145); Total Protein 7.7 g/dL (6.3-8.2)
[2023-01-25] MEDS ORDERED: MEDICATION INTERVENTION MC SCH (15:30)
[2023-01-25] MEDS: Coumadin 3 MG PO SCH (17:16)
[2023-01-25] MEDS ORDERED: JANTOVEN PO SCH (18:00)
[2023-01-25] MEDS ORDERED: TYLENOL 325 MG PO PRN (18:34)
[2023-01-25] MEDS: Sodium Chloride 0.9% 1000 ML 1,000 ML IV SCH (19:34)
[2023-01-25] MEDS: HUMALOG SQ PRN (21:17)
[2023-01-26] MEDS: PROVENTIL 2.5 MG/3 ML NEB IH SCH ×5 (03:11→19:48)
[2023-01-26] MEDS: solu-MEDROL 60 MG, Sterile H2O 10 ml 2 ML IV SCH ×6 (06:17→18:08)
[2023-01-26] MEDS: Spiriva 18 Mcg/Cap Inhaler IH SCH ×3 (06:43→10:48)
[2023-01-26] MEDS: Advair Hfa 115/21 Common canister IH SCH ×4 (06:43→19:49)
[2023-01-26] MEDS: VITAMIN D PO SCH (09:22)
[2023-01-26] MEDS: Pepcid 20 MG VIAL IV SCH ×2 (09:22→21:56)
[2023-01-26] MEDS: THERAGRAN MULTIVITAMIN PO SCH (09:23)
[2023-01-26] MEDS: Klor Con PO SCH (09:23)
[2023-01-26] MEDS: Cordarone 200 MG PO SCH (09:24)
[2023-01-26] MEDS: Lanoxin 0.125MG TABLET PO SCH (09:24)
[2023-01-26] MEDS: LASIX 20 MG PO SCH (09:25)
[2023-01-26] MEDS: HUMALOG SQ PRN (09:26)
[2023-01-26] MEDS: MAG-OX 400 PO SCH (09:26)
[2023-01-26] MEDS: COREG 12.5 MG PO SCH ×2 (09:26→21:55)
[2023-01-26 09:49] LABS: Absolute Neutrophil Ct (ANC) 8.22 x10^3/uL (1.4-6.9); BASOPHIL % 0.1 % (0.0-0.4); Basophil (Absolute #) 0.01 x10^3/uL (0-0.4); Eosinophil % 0.1 % (0.00-5.0); Eosinophil (Absolute #) 0.01 x10^3/uL (0-0.5); Hematocrit 35.4 % (35-47); Hemoglobin 11.4 g/dL (12.0-16.0); IMMATURE GRAN # 0.04 x10^3u/L (0.00-0.03); IMMATURE GRAN % 0.4 % (0.00-0.4); Lymphocyte (Absolute #) 0.74 x10^3/uL (1.0-4.6); Lymphocytes % 7.9 % (24.0-44.0); Mean Cell Volume 92.9 fL (78-100); Mean Corpuscular Hemoglobin 29.9 pg (26-32); Mean Corpuscular Hgb Concent. 32.2 g/dL (32-36); Mean Platelet Volume 10.5 fL (7.5-11.0); Monocyte (Absolute #) 0.33 x10^3/uL (0.0-1.3); Monocytes % 3.5 % (0.0-12.0); Platelet Count 191 x10^3/uL (150-450); Red Blood Count 3.81 x10^6/uL (4.1-5.4); Red Cell Distribution Width 16.1 % (11.5-14.0); White Blood Count 9.4 x10^3/uL (4.0-10.5)
[2023-01-26 09:53] LABS: INR 2.48 (0.8-3.0); PROTIME 25.3 SECONDS (9.4-12.5)
[2023-01-26 09:54] LABS: ALBUMIN 3.5 g/dL (3.5-5.0); ALKALINE PHOSPHATASE 77 U/L (38-126); ANION GAP 13.3 MEQ/L (5-15); BLOOD UREA NITROGEN 31 mg/dL (7-17); CHLORIDE 101 mmol/L (98-107); Calcium 8.6 mg/dL (8.4-10.2); Carbon Dioxide 27 mmol/L (22-30); Creatinine 1 0.65 mg/dL (0.52-1.04); EST GLOMERULAR FILTRATION RATE > 60.0 ML/MIN; Glucose 160 mg/dL (74-106); Potassium 3.6 mmol/L (3.5-5.1); SGOT/AST 34 U/L (14-36); SGPT/ALT 21 U/L (0-35); SODIUM 138 mmol/L (137-145); Total Protein 7.3 g/dL (6.3-8.2)
[2023-01-26] MEDS: Invanz *** 1 G in Sodium Chloride 100ML MINI-BAG PLUS 100 ML IV SCH (10:50)
--- NOTE | 2023-01-26 12:03 | PCM.NOTE ---
Date and Time: 01/26/23 1201 Subjective Assessment: patient thinks she is feeling some better, no specific complaints. denies pain, just feels weak and bad. normally ambulates with a walker at home Objective Exam General Appearance: no apparent distress, obese Skin Exam: normal color Respiratory Exam: normal breath sounds, lungs clear, No respiratory distress Cardiovascular Exam: regular rate/rhythm, normal heart sounds Gastrointestinal/Abdomen Exam: soft, No tenderness, No mass OBJECTIVE DATA Vital Signs: Vital Signs - 24 hr Temp Pulse Resp BP BP Pulse Ox 01/26/23 10:41 61 22 95 01/26/23 09:24 85 132/60 01/26/23 06:54 62 24 94 L 01/26/23 06:40 97.1 F 65 14 132/60 91 L 01/26/23 03:47 97.9 F 66 22 139/63 91 L 01/26/23 03:13 66 22 91 L 01/25/23 23:55 97.9 F 91 H 18 117/58 92 L 01/25/23 23:13 62 18 92 L 01/25/23 19:31 97.8 F 60 18 135/66 94 L 01/25/23 18:42 60 18 94 L 01/25/23 16:00 97.9 F 71 16 141/65 93 L 01/25/23 15:16 70 16 95 Pain Assessment - Last Documented Pain Intensity 0 Pain Scale Used 0-10 Pain Scale Intake and Output: Intake & Output 01/24/23 01/25/23 01/26/23 01/27/23 11:59 11:59 11:59 11:59 Intake Total 1587 2721 Output Total 50 Balance 1537 2721 Weight 92.2 kg 89.9 kg 89.9 kg Lab Results: Lab Results-Last 24 Hours 01/25/23 01/25/23 01/25/23 Range/Units 05:10 05:10 20:57 WBC 5.0 (4.0-10.5) x10^3/uL RBC 3.94 L (4.1-5.4) x10^6/uL Hgb 11.8 L (12.0-16.0) g/dL Hct 37.5 (35-47) % MCV 95.2 (78-100) fL MCH 29.9 (26-32) pg MCHC 31.5 L (32-36) g/dL RDW 16.0 H (11.5-14.0) % Plt Count 212 (150-450) x10^3/uL MPV 10.3 (7.5-11.0) fL Gran % 77.1 H (36.0-66.0) % Immature Gran % (Auto) 0.2 (0.00-0.4) % Nucleat RBC Rel Count 0.0 (0.00-0.1) % Eos # (Auto) 0 (0-0.5) x10^3/uL Immature Gran # (Auto) 0.01 (0.00-0.03) x10^3u/L Absolute Lymphs (auto) 0.95 L (1.0-4.6) x10^3/uL Absolute Monos (auto) 0.18 (0.0-1.3) x10^3/uL Absolute Nucleated RBC 0.00 (0.00-0.01) x10^3u/L Lymphocytes % 19.1 L (24.0-44.0) % Monocytes % 3.6 (0.0-12.0) % Eosinophils % 0.0 (0.00-5.0) % Basophils % 0.0 (0.0-0.4) % Absolute Granulocytes 3.83 (1.4-6.9) x10^3/uL Basophils # 0 (0-0.4) x10^3/uL PT (9.4-12.5) SECONDS INR (0.8-3.0) Sodium 136 L (137-145) mmol/L Potassium 3.5 (3.5-5.1) mmol/L Chloride 99 (98-107) mmol/L Carbon Dioxide 28 (22-30) mmol/L Anion Gap 13.3 (5-15) MEQ/L BUN 26 H (7-17) mg/dL Creatinine 0.64 (0.52-1.04) mg/dL Estimated GFR > 60.0 ML/MIN Glucose 142 H (74-106) mg/dL POC Glucometer 197 H (74 to 106) mg/dL Calcium 9.0 (8.4-10.2) mg/dL Total Bilirubin 0.60 (0.2-1.3) mg/dL AST 52 H (14-36) U/L ALT 21 (0-35) U/L Alkaline Phosphatase 81 (38-126) U/L NT-Pro-B Natriuret Pep (<300) pg/mL Serum Total Protein 7.7 (6.3-8.2) g/dL Albumin 3.6 (3.5-5.0) g/dL 01/26/23 01/26/23 01/26/23 Range/Units 09:30 09:30 09:30 WBC 9.4 (4.0-10.5) x10^3/uL RBC 3.81 L (4.1-5.4) x10^6/uL Hgb 11.4 L (12.0-16.0) g/dL Hct 35.4 (35-47) % MCV 92.9 (78-100) fL MCH 29.9 (26-32) pg MCHC 32.2 (32-36) g/dL RDW 16.1 H (11.5-14.0) % Plt Count 191 (150-450) x10^3/uL MPV 10.5 (7.5-11.0) fL Gran % 88.0 H (36.0-66.0) % Immature Gran % (Auto) 0.4 (0.00-0.4) % Nucleat RBC Rel Count 0.0 (0.00-0.1) % Eos # (Auto) 0.01 (0-0.5) x10^3/uL Immature Gran # (Auto) 0.04 H (0.00-0.03) x10^3u/L Absolute Lymphs (auto) 0.74 L (1.0-4.6) x10^3/uL Absolute Monos (auto) 0.33 (0.0-1.3) x10^3/uL Absolute Nucleated RBC 0.00 (0.00-0.01) x10^3u/L Lymphocytes % 7.9 L (24.0-44.0) % Monocytes % 3.5 (0.0-12.0) % Eosinophils % 0.1 (0.00-5.0) % Basophils % 0.1 (0.0-0.4) % Absolute Granulocytes 8.22 H (1.4-6.9) x10^3/uL Basophils # 0.01 (0-0.4) x10^3/uL PT 25.3 H (9.4-12.5) SECONDS INR 2.48 D (0.8-3.0) Sodium 138 (137-145) mmol/L Potassium 3.6 (3.5-5.1) mmol/L Chloride 101 (98-107) mmol/L Carbon Dioxide 27 (22-30) mmol/L Anion Gap 13.3 (5-15) MEQ/L BUN 31 H (7-17) mg/dL Creatinine 0.65 (0.52-1.04) mg/dL Estimated GFR > 60.0 ML/MIN Glucose 160 H (74-106) mg/dL POC Glucometer (74 to 106) mg/dL Calcium 8.6 (8.4-10.2) mg/dL Total Bilirubin 0.50 (0.2-1.3) mg/dL AST 34 (14-36) U/L ALT 21 (0-35) U/L Alkaline Phosphatase 77 (38-126) U/L NT-Pro-B Natriuret Pep (<300) pg/mL Serum Total Protein 7.3 (6.3-8.2) g/dL Albumin 3.5 (3.5-5.0) g/dL 01/26/ Range/Units 09:30 WBC (4.0-10.5) x10^3/uL RBC (4.1-5.4) x10^6/uL Hgb (12.0-16.0) g/dL Hct (35-47) % MCV (78-100) fL MCH (26-32) pg MCHC (32-36) g/dL RDW (11.5-14.0) % Plt Count (150-450) x10^3/uL MPV (7.5-11.0) fL Gran % (36.0-66.0) % Immature Gran % (Auto) (0.00-0.4) % Nucleat RBC Rel Count (0.00-0.1) % Eos # (Auto) (0-0.5) x10^3/uL Immature Gran # (Auto) (0.00-0.03) x10^3u/L Absolute Lymphs (auto) (1.0-4.6) x10^3/uL Absolute Monos (auto) (0.0-1.3) x10^3/uL Absolute Nucleated RBC (0.00-0.01) x10^3u/L Lymphocytes % (24.0-44.0) % Monocytes % (0.0-12.0) % Eosinophils % (0.00-5.0) % Basophils % (0.0-0.4) % Absolute Granulocytes (1.4-6.9) x10^3/uL Basophils # (0-0.4) x10^3/uL PT (9.4-12.5) SECONDS INR (0.8-3.0) Sodium (137-145) mmol/L Potassium (3.5-5.1) mmol/L Chloride (98-107) mmol/L Carbon Dioxide (22-30) mmol/L Anion Gap (5-15) MEQ/L BUN (7-17) mg/dL Creatinine (0.52-1.04) mg/dL Estimated GFR ML/MIN Glucose (74-106) mg/dL POC Glucometer (74 to 106) mg/dL Calcium (8.4-10.2) mg/dL Total Bilirubin (0.2-1.3) mg/dL AST (14-36) U/L ALT (0-35) U/L Alkaline Phosphatase (38-126) U/L NT-Pro-B Natriuret Pep 3310 (<300) pg/mL Serum Total Protein (6.3-8.2) g/dL Albumin (3.5-5.0) g/dL Radiology Exams: Radiology Procedures Category Date Time Status CHEST WITH CONTRAST [CT] Stat Exams 01/24/23 11:58 Completed Assessment/Plan (1) UTI due to extended-spectrum beta lactamase (ESBL) producing Escherichia coli Current Visit: No Status: Acute Assessment & Plan: continue Invanz, based on previous culture result Code(s): N39.0 - URINARY TRACT INFECTION, SITE NOT SPECIFIED; B96.29 - OTH ESCHERICHIA COLI THE CAUSE OF DISEASES CLASSD ELSWHR; Z16.12 - EXTENDED SPECTRUM BETA LACTAMASE (ESBL) RESISTANCE (2) CHF (congestive heart failure) Current Visit: Yes Status: Chronic Code(s): I50.9 - HEART FAILURE, UNSPECIFIED (3) DM2 (diabetes mellitus, type 2) Current Visit: Yes Status: Chronic Qualifiers: Diabetes mellitus detention insulin use: without press tender long goods use (4) Paroxysmal A-fib Current Visit: Yes Status: Chronic Code(s): I48.0 - PAROXYSMAL ATRIAL FIBRILLATION (5) Weakness Current Visit: No Status: Acute Assessment & Plan: ambulate patient, consult PT Code(s): R53.1 - WEAKNESS
[2023-01-26] MEDS: PATIENT OWN MEDICATION PO SCH ×2 (14:08→21:55)
[2023-01-26] MEDS ORDERED: JANTOVEN PO SCH (18:00)
[2023-01-26] MEDS ORDERED: PROVENTIL 2.5 MG/3 ML NEB IH PRN (19:57)
[2023-01-27] MEDS: solu-MEDROL 60 MG, Sterile H2O 10 ml 2 ML IV SCH ×8 (00:07→13:04)
[2023-01-27 04:33] LABS: Absolute Neutrophil Ct (ANC) 8.69 x10^3/uL (1.4-6.9); Basophil (Absolute #) 0 x10^3/uL (0-0.4); Eosinophil (Absolute #) 0 x10^3/uL (0-0.5); Hematocrit 34.7 % (35-47); Hemoglobin 11.2 g/dL (12.0-16.0); Lymphocyte (Absolute #) 0.59 x10^3/uL (1.0-4.6); Lymphocytes % 6.1 % (24.0-44.0); Mean Cell Volume 93.3 fL (78-100); Mean Corpuscular Hemoglobin 30.1 pg (26-32); Mean Corpuscular Hgb Concent. 32.3 g/dL (32-36); Mean Platelet Volume 10.2 fL (7.5-11.0); Monocyte (Absolute #) 0.34 x10^3/uL (0.0-1.3); Monocytes % 3.5 % (0.0-12.0); Neutrophil % 89.4 % (36.0-66.0); Platelet Count 187 x10^3/uL (150-450); Red Blood Count 3.72 x10^6/uL (4.1-5.4); Red Cell Distribution Width 16.1 % (11.5-14.0); White Blood Count 9.7 x10^3/uL (4.0-10.5)
[2023-01-27 04:55] LABS: ALBUMIN 3.5 g/dL (3.5-5.0); ALKALINE PHOSPHATASE 96 U/L (38-126); ANION GAP 13.2 MEQ/L (5-15); BLOOD UREA NITROGEN 36 mg/dL (7-17); CHLORIDE 103 mmol/L (98-107); Calcium 8.7 mg/dL (8.4-10.2); Carbon Dioxide 26 mmol/L (22-30); EST GLOMERULAR FILTRATION RATE > 60.0 ML/MIN; Glucose 175 mg/dL (74-106); Potassium 3.7 mmol/L (3.5-5.1); SGOT/AST 41 U/L (14-36); SGPT/ALT 28 U/L (0-35); SODIUM 138 mmol/L (137-145); Total Protein 7.3 g/dL (6.3-8.2)
[2023-01-27 04:58] LABS: INR 3.48 (0.8-3.0); PROTIME 34.6 SECONDS (9.4-12.5)
[2023-01-27] MEDS ORDERED: solu-MEDROL ONE (05:41)
[2023-01-27 05:48] LABS: Slide Review 1 YES
[2023-01-27] MEDS: Spiriva 18 Mcg/Cap Inhaler IH SCH (08:57)
[2023-01-27] MEDS: Advair Hfa 115/21 Common canister IH SCH (09:01)
[2023-01-27] MEDS: PATIENT OWN MEDICATION PO SCH (09:04)
[2023-01-27] MEDS: Pepcid 20 MG VIAL IV SCH (09:05)
[2023-01-27] MEDS: MAG-OX 400 PO SCH (09:07)
[2023-01-27] MEDS: LASIX 20 MG PO SCH (09:07)
[2023-01-27] MEDS: Klor Con PO SCH (09:07)
[2023-01-27] MEDS: VITAMIN D PO SCH (09:07)
[2023-01-27] MEDS: THERAGRAN MULTIVITAMIN PO SCH (09:07)
[2023-01-27] MEDS: Lanoxin 0.125MG TABLET PO SCH (09:08)
[2023-01-27] MEDS: COREG 12.5 MG PO SCH (09:09)
[2023-01-27] MEDS: Cordarone 200 MG PO SCH (09:12)
[2023-01-27] MEDS ORDERED: Januvia 50 MG PO SCH (10:00)
[2023-01-27] MEDS: Invanz *** 1 G in Sodium Chloride 100ML MINI-BAG PLUS 100 ML IV SCH ×2 (11:43→13:14)
[2023-01-27 11:55] VITALS: O2SAT 93
[2023-01-27] MEDS ORDERED: XYLOCAINE 1% HCL 20 ML MDV IJ PRN (13:10)
[2023-01-27] MEDS ORDERED: Invanz IM SCH (14:00)
[2023-01-27 16:25] VITALS: BP 149/69; PULSE 73
[2023-01-27] MEDS ORDERED: Coumadin 3 MG PO SCH (18:00)
[2023-01-27] MEDS ORDERED: JANTOVEN PO SCH (18:00)
--- NOTE | 2023-01-27 18:17 | PCM.DCORD ---
- Discharge Disposition: HOME HEALTH SERVICE Condition: Good Prescriptions: New Prednisone 10 mg [Deltasone 10 mg] 10 mg PO DAILY 10 Days #7 tablet Ertapenem Sodium [Invanz ] 1 g IM DAILY 3 Days #3 Continue Amiodarone HCl 200 mg [Cordarone 200 MG] 200 mg PO DAILY Cholecalciferol (Vitamin D3) [Vitamin D] 5,000 units PO DAILY Fluticasone/Umeclidin/Vilanter [Trelegy Ellipta 100-62.5-25] 1 puff IH DAILY Carvedilol 12.5 mg [Coreg 12.5 mg] 12.5 mg PO BID Digoxin 0.125 mg Tablet [Lanoxin 0.125MG TABLET] 0.125 mg PO DAILY Warfarin Sodium 3 mg PO DAILY Potassium Chloride 20 meq PO DAILY Multivitamin 1 tablet PO DAILY Magnesium Oxide 400 mg [Mag-Ox 400] 400 mg PO DAILY Linagliptin [Tradjenta] 1 tablet PO DAILY Furosemide 20 mg [Lasix 20 mg] 40 mg PO DAILY Sacubitril/Valsartan [Entresto 24 mg-26 mg Tablet] 24 - 26 mg PO BID Ertapenem Sodium [Invanz ] 1,000 g IV DAILY 6 Days Instructions: Chronic Obstructive Pulmonary Disease (COPD) (DC), Urinary Tract Infection, Adult (DC) Additional Instructions: Infusion center will call you in the morning to let you know what time to come in for the first injection Follow up with: TASHA CONWAY DO [ACTIVE STAFF] - 02/05/23 2:30 pm
--- NOTE | 2023-01-27 18:20 | PCM.DS ---
Discharge Summary Date of Admission: 01/25/23 13:23 Date of Discharge: 01/27/23 Admitting Physician: TASHA CONWAY DO Primary Care Provider: [facility] Allergies Allergies No Known Drug Allergies Allergy (Verified 01/24/23 10:09) Hospital Summary - Vitals & Intake/Output Vital Signs: Vital Signs Temperature 97.9 F 01/27/23 16:00 Pulse Rate 73 01/27/23 16:00 Respiratory Rate 16 01/27/23 16:00 Blood Pressure 149/69 01/27/23 16:00 O2 Sat by Pulse Oximetry 93 L 01/27/23 16:00 Intake & Output: Intake & Output 01/25/23 01/26/23 01/27/23 01/28/23 11:59 11:59 11:59 11:59 Intake Total 1587 2721 1070 280 Output Total 50 Balance 1537 2721 1070 280 Weight 89.9 kg 89.9 kg 92 kg - Lab Result Diagrams: 01/27/23 04:22 01/27/23 04:22 Lab Results-Last 24 Hrs: Lab Results-Last 24 Hours 01/26/23 01/27/23 01/27/23 Range/Units 21:05 04:22 04:22 WBC 9.7 (4.0-10.5) x10^3/uL RBC 3.72 L (4.1-5.4) x10^6/uL Hgb 11.2 L (12.0-16.0) g/dL Hct 34.7 L (35-47) % MCV 93.3 (78-100) fL MCH 30.1 (26-32) pg MCHC 32.3 (32-36) g/dL RDW 16.1 H (11.5-14.0) % Plt Count 187 (150-450) x10^3/uL MPV 10.2 (7.5-11.0) fL Gran % 89.4 H (36.0-66.0) % Immature Gran % (Auto) 1.0 H (0.00-0.4) % Nucleat RBC Rel Count 0.0 (0.00-0.1) % Eos # (Auto) 0 (0-0.5) x10^3/uL Immature Gran # (Auto) 0.10 H (0.00-0.03) x10^3u/L Absolute Lymphs (auto) 0.59 L (1.0-4.6) x10^3/uL Absolute Monos (auto) 0.34 (0.0-1.3) x10^3/uL Absolute Nucleated RBC 0.00 (0.00-0.01) x10^3u/L Lymphocytes % 6.1 L (24.0-44.0) % Monocytes % 3.5 (0.0-12.0) % Eosinophils % 0.0 (0.00-5.0) % Basophils % 0.0 (0.0-0.4) % Absolute Granulocytes 8.69 H (1.4-6.9) x10^3/uL Basophils # 0 (0-0.4) x10^3/uL PT 34.6 H (9.4-12.5) SECONDS INR 3.48 H D (0.8-3.0) Sodium (137-145) mmol/L Potassium (3.5-5.1) mmol/L Chloride (98-107) mmol/L Carbon Dioxide (22-30) mmol/L Anion Gap (5-15) MEQ/L BUN (7-17) mg/dL Creatinine (0.52-1.04) mg/dL Estimated GFR ML/MIN Glucose (74-106) mg/dL POC Glucometer 187 H (74 to 106) mg/dL Calcium (8.4-10.2) mg/dL Total Bilirubin (0.2-1.3) mg/dL AST (14-36) U/L ALT (0-35) U/L Alkaline Phosphatase (38-126) U/L Serum Total Protein (6.3-8.2) g/dL Albumin (3.5-5.0) g/dL Slides for Path Review YES 01/27/23 Range/Units 04:22 WBC (4.0-10.5) x10^3/uL RBC (4.1-5.4) x10^6/uL Hgb (12.0-16.0) g/dL Hct (35-47) % MCV (78-100) fL MCH (26-32) pg MCHC (32-36) g/dL RDW (11.5-14.0) % Plt Count (150-450) x10^3/uL MPV (7.5-11.0) fL Gran % (36.0-66.0) % Immature Gran % (Auto) (0.00-0.4) % Nucleat RBC Rel Count (0.00-0.1) % Eos # (Auto) (0-0.5) x10^3/uL Immature Gran # (Auto) (0.00-0.03) x10^3u/L Absolute Lymphs (auto) (1.0-4.6) x10^3/uL Absolute Monos (auto) (0.0-1.3) x10^3/uL Absolute Nucleated RBC (0.00-0.01) x10^3u/L Lymphocytes % (24.0-44.0) % Monocytes % (0.0-12.0) % Eosinophils % (0.00-5.0) % Basophils % (0.0-0.4) % Absolute Granulocytes (1.4-6.9) x10^3/uL Basophils # (0-0.4) x10^3/uL PT (9.4-12.5) SECONDS INR (0.8-3.0) Sodium 138 (137-145) mmol/L Potassium 3.7 (3.5-5.1) mmol/L Chloride 103 (98-107) mmol/L Carbon Dioxide 26 (22-30) mmol/L Anion Gap 13.2 (5-15) MEQ/L BUN 36 H (7-17) mg/dL Creatinine 0.70 (0.52-1.04) mg/dL Estimated GFR > 60.0 ML/MIN Glucose 175 H (74-106) mg/dL POC Glucometer (74 to 106) mg/dL Calcium 8.7 (8.4-10.2) mg/dL Total Bilirubin 0.50 (0.2-1.3) mg/dL AST 41 H (14-36) U/L ALT 28 (0-35) U/L Alkaline Phosphatase 96 (38-126) U/L Serum Total Protein 7.3 (6.3-8.2) g/dL Albumin 3.5 (3.5-5.0) g/dL Slides for Path Review Micro Results-Entire Visit: Microbiology 01/24/23 12:26 Urine Culture - Final Urine, Void <10K NORMAL SKIN ANDRES PROBABLE SKIN CONTAMINANT Accuchecks Date 01/26/23 Time 21:11 - Procedures and Test Procedures and Tests throughout Hospitalization: Therapy Orders & Screens 01/24/23 10:39 Respiratory Therapy Assessment DAILY Comment: 01/24/23 15:03 Oxygen Nasal Cannula 2 lpm Comment: Respiratory Therapy Consult ROUTINE Comment: Reason For Exam: 01/24/23 15:52 Respiratory MDI BID Comment: 01/26/23 12:03 PT Eval & Treat (MD Order) ONCE Reason for Eval:: weakness, UTI Diagnosis: EXAC, COPD Final Diagnosis/Problem List - Final Discharge Diagnosis/Problem (1) COPD with exacerbation Current Visit: Yes Status: Resolved Code(s): J44.1 - CHRONIC OBSTRUCTIVE PULMONARY DISEASE W (ACUTE) EXACERBATION (2) UTI due to extended-spectrum beta lactamase (ESBL) producing Escherichia coli Current Visit: Yes Status: Acute Code(s): N39.0 - URINARY TRACT INFECTION, SITE NOT SPECIFIED; B96.29 - OTH ESCHERICHIA COLI THE CAUSE OF DISEASES CLASSD ELSWHR; Z16.12 - EXTENDED SPECTRUM BETA LACTAMASE (ESBL) RESISTANCE (3) CHF (congestive heart failure) Current Visit: Yes Status: Chronic Code(s): I50.9 - HEART FAILURE, UNSPECIFIED (4) Paroxysmal A-fib Current Visit: Yes Status: Chronic Code(s): I48.0 - PAROXYSMAL ATRIAL FIBRILLATION (5) Anticoagulant long-term use Current Visit: No Status: Chronic Code(s): Z79.01 - [employer] SUPER[employer]OR (CURRENT) USE OF ANTICOAGULANTS (6) DM2 (diabetes mellitus, type 2) Current Visit: Yes Status: Chronic - Discharge Disposition: HOME HEALTH SERVICE Condition: Good Prescriptions: New Prednisone 10 mg [Deltasone 10 mg] 10 mg PO DAILY 10 Days #7 tablet Ertapenem Sodium [Invanz ] 1 g IM DAILY 3 Days #3 Continue Amiodarone HCl 200 mg [Cordarone 200 MG] 200 mg PO DAILY Cholecalciferol (Vitamin D3) [Vitamin D] 5,000 units PO DAILY Fluticasone/Umeclidin/Vilanter [Trelegy Ellipta 100-62.5-25] 1 puff IH DAILY Carvedilol 12.5 mg [Coreg 12.5 mg] 12.5 mg PO BID Digoxin 0.125 mg Tablet [Lanoxin 0.125MG TABLET] 0.125 mg PO DAILY Warfarin Sodium 3 mg PO DAILY Potassium Chloride 20 meq PO DAILY Multivitamin 1 tablet PO DAILY Magnesium Oxide 400 mg [Mag-Ox 400] 400 mg PO DAILY Linagliptin [Tradjenta] 1 tablet PO DAILY Furosemide 20 mg [Lasix 20 mg] 40 mg PO DAILY Sacubitril/Valsartan [Entresto 24 mg-26 mg Tablet] 24 - 26 mg PO BID Ertapenem Sodium [Invanz ] 1,000 g IV DAILY 6 Days Instructions: Chronic Obstructive Pulmonary Disease (COPD) (DC), Urinary Tract Infection, Adult (DC) Additional Instructions: Infusion center will call you in the morning to let you know what time to come in for the first injection Follow up with: TASHA CONWAY DO [ACTIVE STAFF] - 02/05/23 2:30 pm
[2023-01-27] MEDS ORDERED: DELTASONE 10 MG PO SCH (22:00)
[2023-01-28] MEDS ORDERED: Lasix 40 MG PO SCH (10:00)
== END 2023-01-27 18:40 | disposition home health service (06) | DRG 191 ==
LOC: ED 10:02 → EDSTATUS 10:02 → MED SURG 13:23 → OBSVTOIN 01-25 13:23
PROVIDERS: ADMIT Family Medicine; ATTEND Family Medicine
DX: J44.1 Chronic obstructive pulmonary disease with (acute) exacerbation (principal); N39.0 Urinary tract infection, site not specified; Z16.12 Extended spectrum beta lactamase (ESBL) resistance; B96.29 Other Escherichia coli [E. coli] as the cause of diseases classified elsewhere; I11.0 Hypertensive heart disease with heart failure; I50.9 Heart failure, unspecified; I48.0 Paroxysmal atrial fibrillation; E11.9 Type 2 diabetes mellitus without complications; Z79.01 Long term (current) use of anticoagulants; Z79.899 Other long term (current) drug therapy; Z20.828 Contact with and (suspected) exposure to other viral communicable diseases
CPT/HCPCS: 0241U; 36000; 36415; 71045; 71260; 80053; 81001; 82947; 83880; 84484; 85025; 85379; 85610; 87086; 87651; 93005; 93041; 93268; 94640; 94760; 96374; 97161; 99285; G0378; J0696; J1335; J1817; J2930; J7609; A9270-GY

== ENCOUNTER 2023-02-20 12:25 | Inpatient (IN) | payer MEDICARE, OTHER ==
[2023-02-20 13:20] LABS: Absolute Neutrophil Ct (ANC) 3.84 x10^3/uL (1.4-6.9); Basophil (Absolute #) 0.06 x10^3/uL (0-0.4); Eosinophil % 1.7 % (0.00-5.0); Hematocrit 47.2 % (35-47); Hemoglobin 14.3 g/dL (12.0-16.0); IMMATURE GRAN # 0.05 x10^3u/L (0.00-0.03); IMMATURE GRAN % 0.8 % (0.00-0.4); Lymphocyte (Absolute #) 1.07 x10^3/uL (1.0-4.6); Mean Cell Volume 99.2 fL (78-100); Mean Corpuscular Hgb Concent. 30.3 g/dL (32-36); Mean Platelet Volume 9.9 fL (7.5-11.0); Monocyte (Absolute #) 0.81 x10^3/uL (0.0-1.3); Monocytes % 13.7 % (0.0-12.0); Neutrophil % 64.8 % (36.0-66.0); Platelet Count 299 x10^3/uL (150-450); Red Blood Count 4.76 x10^6/uL (4.1-5.4); Red Cell Distribution Width 18.2 % (11.5-14.0); White Blood Count 5.9 x10^3/uL (4.0-10.5)
--- NOTE | 2023-02-20 13:28 | XRAY ---
Indication: Status post fall. Comparison: February 05, 2023 Portable chest limited due to patient's hand overlying left lung. Remaining visualized lungs clear. Heart remains enlarged with left pacemaker. No new/acute cardiopulmonary abnormalities.
[2023-02-20 13:39] LABS: ALBUMIN 4.2 g/dL (3.5-5.0); ALKALINE PHOSPHATASE 107 U/L (38-126); ANION GAP 14.4 MEQ/L (5-15); BLOOD UREA NITROGEN 29 mg/dL (7-17); CHLORIDE 94 mmol/L (98-107); CK-Creatinine Phosphokinase 191 U/L (30-135); Calcium 9.3 mg/dL (8.4-10.2); Carbon Dioxide 31 mmol/L (22-30); Creatinine 1 0.84 mg/dL (0.52-1.04); EST GLOMERULAR FILTRATION RATE > 60.0 ML/MIN; Glucose 127 mg/dL (74-106); LIPASE 126 U/L (23-300); Potassium 4.6 mmol/L (3.5-5.1); SGOT/AST 54 U/L (14-36); SGPT/ALT 34 U/L (0-35); SODIUM 135 mmol/L (137-145); Total Protein 8.4 g/dL (6.3-8.2)
--- NOTE | 2023-02-20 13:44 | XRAY ---
Indication: Status post fall. Multiple contiguous has images obtained through the head without contrast. Comparison: November 18, 2022. Again age-appropriate global atrophy and minimal periventricular degenerative micro-ischemia. New small right frontal scalp hematoma. No acute intracranial hemorrhage, abnormal extra-axial fluid collection, or mass effect. Fourth ventricle is midline without hydrocephalus. Bony calvarium intact. Visualized paranasal sinuses and mastoid air cells are clear. Impression: New right frontal scalp hematoma. Otherwise nonacute senile brain.
--- NOTE | 2023-02-20 14:01 | ERPHSYRPT ---
- History of Present Illness Time Seen by Provider: 02/20/23 12:26 Source: patient Exam Limitations: no limitations Patient Subjective Stated Complaint: Pt fell when she got up to go to the restroom and thinks she hit her right eyebrow on a cabinet but also thinks she fell backwards on her back but isn't complaining of any other pain besides her head, pt is on blood thinners Triage Nursing Assessment: Pt brought to the ER by EMS, hypertensive, rates overall pain as 8/10, swelling and bruising to the right brow and a small abrasion to her nose, pt denies LOC, pt is on blood thinners, unsure if she has any pain to her back, pulses normal, skin n/w/d, no difficulty breathing, tired Physician History: Patient here for fall at home. Patient apparently has a UTI being treated by PT. We received a call from her PCP stating that she does have ESBL culture positive UA. Therefore, needed to be treated with IV antibiotics. Patient is weak, increasing falls at home. Home health has not been able to help her. Allergies/Adverse Reactions: No Known Drug Allergies Allergy (Verified 02/20/23 12:42) Home Medications: Amiodarone HCl 200 mg [Cordarone 200 MG] 200 mg PO DAILY 11/18/22 [History] Cholecalciferol (Vitamin D3) [Vitamin D] 5,000 units PO DAILY 11/18/22 [History] Fluticasone/Umeclidin/Vilanter [Trelegy Ellipta 100-62.5-25] 1 puff IH DAILY 11/18/22 [History] Carvedilol 12.5 mg [Coreg 12.5 mg] 12.5 mg PO BID 12/05/22 [History] Digoxin 0.125 mg Tablet [Lanoxin 0.125MG TABLET] 0.125 mg PO DAILY 12/05/22 [History] Furosemide 20 mg [Lasix 20 mg] 40 mg PO DAILY 12/05/22 [History] Magnesium Oxide 400 mg [Mag-Ox 400] 400 mg PO DAILY 12/05/22 [History] Multivitamin 1 tablet PO DAILY 12/05/22 [History] Potassium Chloride 20 meq PO DAILY 12/05/22 [History] Sacubitril/Valsartan [Entresto 24 mg-26 mg Tablet] 24 - 26 mg PO BID 12/05/22 [History] Warfarin Sodium 3 mg PO DAILY 12/05/22 [History] Escitalopram Oxalate [Lexapro] 5 mg PO DAILY 02/20/23 [History] Spironolactone 25 mg [Aldactone 25 MG] 25 mg PO DAILY 02/20/23 [History] Hx Tetanus, Diphtheria Vaccination/Date Given: Yes Hx Influenza Vaccination/Date Given: Yes Hx Pneumococcal Vaccination/Date Given: Yes Travel Risk - International Travel Have you traveled outside of the country in past 3 weeks: No - Coronavirus Screening Are you exhibiting any of the following symptoms?: No Close contact with a COVID-19 positive Pt in past 14-21 Days: No - Vaccine Status Have you recieved a Covid-19 vaccination: No - Review of Systems Constitutional: Weakness, No Fever, No Chills Eyes: No Symptoms Ears, Nose, & Throat: No Symptoms Respiratory: No Cough, No Dyspnea Cardiac: No Chest Pain, No Edema, No Syncope Abdominal/Gastrointestinal: No Abdominal Pain, No Nausea, No Vomiting, No Diarrhea Genitourinary Symptoms: No Dysuria Musculoskeletal: No Back Pain, No Neck Pain Skin: No Rash Neurological: No Dizziness, No Focal Weakness, No Sensory Changes Psychological: No Symptoms Endocrine: No Symptoms All Other Systems: Reviewed and Negative - Past Medical History Pertinent Past Medical History: Yes Neurological History: No Pertinent History ENT History: No Pertinent History Cardiac History: Arrhythmia, Congestive Heart Failure, Hypertension Respiratory History: COPD Endocrine Medical History: Diabetes Type II Musculoskeletal History: Arthritis GI Medical History: Gallbladder Disease, Polyps History: No Pertinent History Psycho-Social History: No Pertinent History Female Reproductive Disorders: No Pertinent History Other Medical History: DAUGHTER AND PATIENT BOTH DENY BEING DIABETIC - Past Surgical History Past Surgical History: Yes Neuro Surgical History: No Pertinent History Cardiac: Internal Defibrillator, Pacemaker Respiratory: No Pertinent History Gastrointestinal: Cholecystectomy Genitourinary: No Pertinent History Musculoskeletal: Joint Replacement Female Surgical History: Hysterectomy Other Surgical History: lucy knees - Social History Smoking Status: Never smoker Exposure to second hand smoke: No Drug Use: none Patient Lives Alone: No - Nursing Vital Signs Nursing Vital Signs: Initial Vital Signs Temperature 98.0 F 02/20/23 12:29 Pulse Rate 60 02/20/23 12:29 Blood Pressure 142/70 02/20/23 12:29 O2 Sat by Pulse Oximetry 98 02/20/23 12:29 Pain Scale Pain Intensity 8 - Physical Exam General Appearance: no apparent distress, alert, other (Right-sided scalp hematoma) Eye Exam: PERRL/EOMI, eyes nml inspection Ears, Nose, Throat Exam: normal ENT inspection, TMs normal, pharynx normal, moist mucous membranes Neck Exam: normal inspection, non-tender, supple, full range of motion Respiratory Exam: normal breath sounds, lungs clear, No respiratory distress Cardiovascular Exam: regular rate/rhythm, normal heart sounds, normal peripheral pulses Gastrointestinal/Abdomen Exam: soft, normal bowel sounds, No tenderness, No mass Back Exam: normal inspection, normal range of motion, No CVA tenderness, No vertebral tenderness Extremity Exam: normal inspection, normal range of motion, pelvis stable Neurologic Exam: alert, oriented x 3, cooperative, nml station & gait, No motor deficits Skin Exam: normal color, warm, dry, No rash Lymphatic Exam: No adenopathy SpO2: 98 - Course Nursing assessment & vital signs reviewed: Yes EKG Interpreted by Me: Sinus Rhythm Ordered Tests: Active Orders 24 hr Category Date Time Status Admit as Inpatient ROUTINE Care 02/20/23 14:37 Active Line Clearance Foreman STAT Care 02/20/23 12:40 Completed Code Status Order ROUTINE Care 02/20/23 14:37 Active EKG-ER Only STAT Care 02/20/23 12:40 Completed IV Care Q6H Care 02/20/23 14:37 Active IV Insertion STAT Care 02/20/23 12:40 Completed Heart-Healthy Diet Diet 02/21/23 Breakfast Active CHEST 1 VIEW (PORTABLE) Stat Exams 02/20/23 12:40 Completed HEAD WITHOUT CONTRAST [CT] Stat Exams 02/20/23 12:41 Completed CBC W DIFF Stat Lab 02/20/23 12:40 Completed CK-Creatinine Phosphokinase Stat Lab 02/20/23 13:03 Completed CMP Stat Lab 02/20/23 13:03 Completed CULTURE,URINE Stat Lab 02/20/23 13:11 Received CULTURE,URINE Stat Lab 02/20/23 13:11 Received LIPASE Stat Lab 02/20/23 13:03 Completed Lactic Acid Stat Lab 02/20/23 13:01 Completed PT INR [PROTIME WITH INR] Stat Lab 02/20/23 13:30 Completed TROPONIN Q4H Lab 02/20/23 13:03 Completed TROPONIN Q4H Lab 02/20/23 16:45 Ordered TROPONIN Q4H Lab 02/20/23 20:45 Ordered UA W/RFX UR CULTURE Stat Lab 02/20/23 13:11 Completed Transfer Order Routine Transfer 02/20/23 Completed Medication Summary Generic Name Dose Route Start Last Admin Trade Name Freq PRN Reason Stop Dose Admin Meropenem 1 gm/ Sodium 100 mls @ 200 mls/hr 02/20/23 14:46 02/20/23 14:49 Chloride IV 02/20/23 15:15 200 mls/hr STAT ONE Administration Discontinued Medications Generic Name Dose Route Start Last Admin Trade Name Freq PRN Reason Stop Dose Admin Sodium Chloride Confirm 02/20/23 14:47 Sodium Chloride 100ml Mini-Bag Plus Administered 02/20/23 14:48 Dose 100 mls @ ud IV .STK-MED ONE Meropenem Confirm 02/20/23 14:47 Meropenem 1 Gm Vial Administered 02/20/23 14:48 Dose 1 gm IV .STK-MED ONE Lab/Rad Data: Laboratory Result Diagrams 02/20/23 12:40 02/20/23 13:03 Laboratory Results 02/20/23 02/20/23 02/20/23 Range/Units 13:30 13:11 13:03 WBC (4.0-10.5) x10^3/uL RBC (4.1-5.4) x10^6/uL Hgb (12.0-16.0) g/dL Hct (35-47) % MCV (78-100) fL MCH (26-32) pg MCHC (32-36) g/dL RDW (11.5-14.0) % Plt Count (150-450) x10^3/uL MPV (7.5-11.0) fL Gran % (36.0-66.0) % Immature Gran % (Auto) (0.00-0.4) % Nucleat RBC Rel Count (0.00-0.1) % Eos # (Auto) (0-0.5) x10^3/uL Immature Gran # (Auto) (0.00-0.03) x10^3u/L Absolute Lymphs (auto) (1.0-4.6) x10^3/uL Absolute Monos (auto) (0.0-1.3) x10^3/uL Absolute Nucleated RBC (0.00-0.01) x10^3u/L Lymphocytes % (24.0-44.0) % Monocytes % (0.0-12.0) % Eosinophils % (0.00-5.0) % Basophils % (0.0-0.4) % Absolute Granulocytes (1.4-6.9) x10^3/uL Basophils # (0-0.4) x10^3/uL PT 71.3 H (9.4-12.5) SECONDS INR 7.60 H* (0.8-3.0) Sodium (137-145) mmol/L Potassium (3.5-5.1) mmol/L Chloride (98-107) mmol/L Carbon Dioxide (22-30) mmol/L Anion Gap (5-15) MEQ/L BUN (7-17) mg/dL Creatinine (0.52-1.04) mg/dL Estimated GFR ML/MIN Glucose (74-106) mg/dL Lactic Acid (0.4-2.0) Calcium (8.4-10.2) mg/dL Total Bilirubin (0.2-1.3) mg/dL AST (14-36) U/L ALT (0-35) U/L Alkaline Phosphatase (38-126) U/L Creatine Kinase (30-135) U/L Troponin I 0.023 (0.000-0.034) ng/mL Serum Total Protein (6.3-8.2) g/dL Albumin (3.5-5.0) g/dL Lipase (23-300) U/L Urine Color Yellow (Yellow) Urine Appearance Clear (Clear) Urine pH 7.0 (4.6-8.0) Ur Specific [place] 1.015 (1.005-1.030) Urine Protein Negative (Negative) Urine Glucose (UA) Negative (Negative) mg/dL Urine Ketones Negative (Negative) Urine Blood Moderate A (Negative) Urine Nitrite Positive A (Negative) Urine Bilirubin Negative (Negative) Urine Urobilinogen 1.0 A (0.2) mg/dL Ur Leukocyte Esterase Trace A (Negative) U Hyaline Cast (Auto) NONE SEEN (0-2) /LPF Urine Microscopic RBC 21-50 A (0-5) /HPF Urine Microscopic WBC 3-5 (0-5) /HPF Ur Epithelial Cells None Seen (None Seen) /HPF Urine Bacteria Many A (None Seen) /HPF Urine Culture Reflexed YES (NO) 02/20/23 02/20/23 02/20/23 Range/Units 13:03 13:01 12:40 WBC 5.9 (4.0-10.5) x10^3/uL RBC 4.76 (4.1-5.4) x10^6/uL Hgb 14.3 (12.0-16.0) g/dL Hct 47.2 H (35-47) % MCV 99.2 (78-100) fL MCH 30.0 (26-32) pg MCHC 30.3 L (32-36) g/dL RDW 18.2 H (11.5-14.0) % Plt Count 299 (150-450) x10^3/uL MPV 9.9 (7.5-11.0) fL Gran % 64.8 (36.0-66.0) % Immature Gran % (Auto) 0.8 H (0.00-0.4) % Nucleat RBC Rel Count 0.0 (0.00-0.1) % Eos # (Auto) 0.10 (0-0.5) x10^3/uL Immature Gran # (Auto) 0.05 H (0.00-0.03) x10^3u/L Absolute Lymphs (auto) 1.07 (1.0-4.6) x10^3/uL Absolute Monos (auto) 0.81 (0.0-1.3) x10^3/uL Absolute Nucleated RBC 0.00 (0.00-0.01) x10^3u/L Lymphocytes % 18.0 L (24.0-44.0) % Monocytes % 13.7 H (0.0-12.0) % Eosinophils % 1.7 (0.00-5.0) % Basophils % 1.0 (0.0-0.4) % Absolute Granulocytes 3.84 (1.4-6.9) x10^3/uL Basophils # 0.06 (0-0.4) x10^3/uL PT (9.4-12.5) SECONDS INR (0.8-3.0) Sodium 135 L (137-145) mmol/L Potassium 4.6 (3.5-5.1) mmol/L Chloride 94 L (98-107) mmol/L Carbon Dioxide 31 H (22-30) mmol/L Anion Gap 14.4 (5-15) MEQ/L BUN 29 H (7-17) mg/dL Creatinine 0.84 (0.52-1.04) mg/dL Estimated GFR > 60.0 ML/MIN Glucose 127 H (74-106) mg/dL Lactic Acid 2.9 H (0.4-2.0) Calcium 9.3 (8.4-10.2) mg/dL Total Bilirubin 1.30 (0.2-1.3) mg/dL AST 54 H (14-36) U/L ALT 34 (0-35) U/L Alkaline Phosphatase 107 (38-126) U/L Creatine Kinase 191 H (30-135) U/L Troponin I (0.000-0.034) ng/mL Serum Total Protein 8.4 H (6.3-8.2) g/dL Albumin 4.2 (3.5-5.0) g/dL Lipase 126 (23-300) U/L Urine Color (Yellow) Urine Appearance (Clear) Urine pH (4.6-8.0) Ur Specific [place] (1.005-1.030) Urine Protein (Negative) Urine Glucose (UA) (Negative) mg/dL Urine Ketones (Negative) Urine Blood (Negative) Urine Nitrite (Negative) Urine Bilirubin (Negative) Urine Urobilinogen (0.2) mg/dL Ur Leukocyte Esterase (Negative) U Hyaline Cast (Auto) (0-2) /LPF Urine Microscopic RBC (0-5) /HPF Urine Microscopic WBC (0-5) /HPF Ur Epithelial Cells (None Seen) /HPF Urine Bacteria (None Seen) /HPF Urine Culture Reflexed (NO) - Progress Progress: improved Progress Note: 02/20/23 14:13 differential diagnosis includes: PNA, STEMI, NSTEMI, other infection, musculoskeletal pain, pneumothorax - We'll obtain basic labs, fluids, EKG, troponin, chest x-ray -First troponin negative - EKG shows no ST changes - my read. See full read below. - O2 saturations consistently greater than 95%. - CXR shows no pneumonia, pneumothorax - my read 02/20/23 15:01 Patient found to have continued UTI. I did discuss over the phone with her PCP, Dr. Arnold. She did recommend admission given that recent UA demonstrated ESBL E. coli. Patient's head CT returned negative for head bleed. Patient's INR was 7.6. She is on Coumadin for A-fib per Dr. Arnold. I did discuss over the phone with on-call telemedicine, Dr. Zavala. He did accept the patient for admission to the hospital. Requested we give the first dose of meropenem here in the emergency department. Verbal order given prior to admission to hospital. Discussed with Dr.: Other (Sam Zavala) Will see patient in: hospital (full admit) Counseled pt/family regarding: lab results, diagnosis, need for follow-up, rad results - Departure Departure Disposition: In-patient Admission Clinical Impression: UTI (urinary tract infection), Weakness Condition: Stable Critical Care Time: No
[2023-02-20 14:27] LABS: Appearance Clear (Clear); Bacteria Many /HPF (None Seen); Bilirubin Negative (Negative); Blood Moderate (Negative); Epithelial Cells None Seen /HPF (None Seen); Glucose, Urine Negative (Negative); Hyaline Casts NONE SEEN /LPF (0-2); Ketones Negative (Negative); Leukocyte Esterase Trace (Negative); Nitrite Positive (Negative); Protein,Urine Dip Negative (Negative); RBC 21-50 /HPF (0-5); Specific Gravity 1.015 (1.005-1.030)
[2023-02-20 14:32] LABS: ADD URINE CULTURE? YES (NO)
[2023-02-20] MEDS ORDERED: Merrem 1 GM in Sodium Chloride 100ML MINI-BAG PLUS 100 ML IV ONE (14:46)
[2023-02-20] MEDS ORDERED: Merrem IV ONE (14:47)
[2023-02-20] MEDS ORDERED: Sodium Chloride 100ML MINI-BAG PLUS 100 ML IV ONE (14:47)
[2023-02-20 14:52] LABS: PROTIME 71.3 SECONDS (9.4-12.5)
[2023-02-20 14:53] LABS: INR 7.6 (0.8-3.0)
[2023-02-20] MEDS ORDERED: PHENERGAN 25 MG PO PRN (15:35)
[2023-02-20] MEDS ORDERED: PROVENTIL 2.5 MG/3 ML NEB IH PRN (15:40)
--- NOTE | 2023-02-20 16:16 | PCM.HP ---
History of Present Illness - Chief Complaint Chief Complaint: Recurrent falls Date: 02/20/23 History of Present Illness: 82-year-old woman with a history of A-fib, hypertension, CHF, COPD, here again with a fall and referred from primary care clinic for UTI. Patient has a history of recurrent syncope, with falls with a prodrome of dizziness and palpitations. She usually does not have loss of consciousness with his episodes. She fell again today, with a laceration over her right orbit. She denies LOC today. Denies chest pain, dyspnea, nausea, and states that she is been eating well. Today, she was walking to the bathroom, and despite using her rolling walker and walking with the assistance of a home health aide, she fell. Of note, her INR is 7.6 today. She has been holding her warfarin since Thursday after being told her levels were too high. She is currently pending pacemaker placement for this recurrent syncope. Patient has also been admitted multiple times in the last few months with ESBL E. coli UTIs. However, patient denies any symptoms of acute cystitis. She says her home health nurse checks a urine culture every other week or so to see if she has an infection. Patient denies dysuria, urinary urgency, urinary frequency, or hematuria. I reviewed her past urine cultures, and has repeated episodes of ESBL E. coli in urine cultures, although occasionally has Pseudomonas, staph epidermis, or Citrobacter, all in the last 6 months. - Review of Systems Constitutional: Weakness, No Fever, No Chills, No Malaise, No Night Sweats Eyes: No Discharge, No Eye Pain, No Vision Changes Ears, Nose, & Throat: No Symptoms Respiratory: No Cough, No Short Of Breath, No Wheezing Cardiac: Palpitations, Syncope, No Chest Pain, No Edema Abdominal/Gastrointestinal: No Abdominal Pain, No Nausea, No Vomiting, No Diarrhea Genitourinary Symptoms: No Dysuria, No Frequency, No Hematuria, No Urgency Musculoskeletal: No Symptoms Skin: No Symptoms Neurological: Dizziness, No Focal Weakness, No Headache, No Lethargy, No Seizure, No Sensory Changes Psychological: No Symptoms Endocrine: No Symptoms Hematologic/Lymphatic: No Symptoms Immunological/Allergic: No Symptoms Medications & Allergies Home Medications: Home Medication List Amiodarone HCl 200 mg [Cordarone 200 MG] 200 mg PO DAILY 11/18/22 [History Confirmed 02/20/23] Cholecalciferol (Vitamin D3) [Vitamin D] 5,000 units PO DAILY 11/18/22 [History Confirmed 02/20/23] Fluticasone/Umeclidin/Vilanter [Trelegy Ellipta 100-62.5-25] 1 puff IH DAILY 11/18/22 [History Confirmed 02/20/23] Carvedilol 12.5 mg [Coreg 12.5 mg] 12.5 mg PO BID 12/05/22 [History Confirmed 02/20/23] Digoxin 0.125 mg Tablet [Lanoxin 0.125MG TABLET] 0.125 mg PO DAILY 12/05/22 [History Confirmed 02/20/23] Furosemide 20 mg [Lasix 20 mg] 40 mg PO DAILY 12/05/22 [History Confirmed 02/20/23] Magnesium Oxide 400 mg [Mag-Ox 400] 400 mg PO DAILY 12/05/22 [History Confirmed 02/20/23] Multivitamin 1 tablet PO DAILY 12/05/22 [History Confirmed 02/20/23] Potassium Chloride 20 meq PO DAILY 12/05/22 [History Confirmed 02/20/23] Sacubitril/Valsartan [Entresto 24 mg-26 mg Tablet] 24 - 26 mg PO BID 12/05/22 [History Confirmed 02/20/23] Warfarin Sodium 3 mg PO DAILY 12/05/22 [History Confirmed 02/20/23] Escitalopram Oxalate [Lexapro] 5 mg PO DAILY 02/20/23 [History Confirmed 02/20/23] Spironolactone 25 mg [Aldactone 25 MG] 25 mg PO DAILY 02/20/23 [History Confirmed 02/20/23] Allergies/Adverse Reactions: Allergies Allergy/AdvReac Type Severity Reaction Status Date / Time No Known Drug Allergies Allergy Verified 02/20/23 12:42 - Past Medical History Past Medical History: Yes Neurological History: No Pertinent History ENT History: No Pertinent History Cardiac History: Arrhythmia, Congestive Heart Failure, Hypertension Respiratory History: COPD Musculoskelatal History: Arthritis GI Medical History: Gallbladder Disease, Polyps History: No Pertinent History Pyscho-Social History: No Pertinent History Reproductive Disorders: No Pertinent History Comment: DAUGHTER AND PATIENT BOTH DENY BEING DIABETIC - Female History Are you now?: No - Past Surgical History Past Surgical History: Yes Neuro Surgical History: No Pertinent History Cardiac History: Internal Defibrillator, Pacemaker Respiratory Surgery: No Pertinent History GI Surgical History: Cholecystectomy Genitourinary Surgical Hx: No Pertinent History Musculskeletal Surgical Hx: Joint Replacement Female Surgical History: Hysterectomy Other Surgical History: lucy knees - Social History Smoking Status: Never smoker Exposure to second hand smoke: No Alcohol: None Drug Use: none Significant Family History: no pertinent family hx - Physical Exam Vital Signs: Vital Signs - 24 hr Temp Pulse Resp BP BP Pulse Ox 02/20/23 15:13 97.1 F 60 18 125/53 96 02/20/23 15:03 98 02/20/23 14:17 60 18 137/63 98 02/20/23 13:00 137/84 02/20/23 12:29 98.0 F 60 142/70 98 General Appearance: no apparent distress, alert Neurologic Exam: alert, oriented x 3, sensation nml, other (Face symmetric), No motor deficits Eye Exam: other (Laceration over the right orbit) Respiratory Exam: normal breath sounds, lungs clear, No respiratory distress Cardiovascular Exam: regular rate/rhythm, No murmur, No edema Gastrointestinal/Abdomen Exam: soft, normal bowel sounds, No tenderness, No distention Wound Assessment: Skin/Wound Assessment Wound/Incision Assessment Start: 02/20/23 15:45 Text: Status: Active Freq: Q6H Protocol: Document 02/20/23 15:49 RB (Rec: 02/20/23 15:52 RB [id number]) Wound Photo Photo Taken Yes Date: 02/20/23 Time: 15:10 Results - Labs Lab/Micro Results: Lab Results-Last 24 Hours 02/20/23 02/20/23 02/20/23 Range/Units 12:40 13:01 13:03 WBC 5.9 (4.0-10.5) x10^3/uL RBC 4.76 (4.1-5.4) x10^6/uL Hgb 14.3 (12.0-16.0) g/dL Hct 47.2 H (35-47) % MCV 99.2 (78-100) fL MCH 30.0 (26-32) pg MCHC 30.3 L (32-36) g/dL RDW 18.2 H (11.5-14.0) % Plt Count 299 (150-450) x10^3/uL MPV 9.9 (7.5-11.0) fL Gran % 64.8 (36.0-66.0) % Immature Gran % (Auto) 0.8 H (0.00-0.4) % Nucleat RBC Rel Count 0.0 (0.00-0.1) % Eos # (Auto) 0.10 (0-0.5) x10^3/uL Immature Gran # (Auto) 0.05 H (0.00-0.03) x10^3u/L Absolute Lymphs (auto) 1.07 (1.0-4.6) x10^3/uL Absolute Monos (auto) 0.81 (0.0-1.3) x10^3/uL Absolute Nucleated RBC 0.00 (0.00-0.01) x10^3u/L Lymphocytes % 18.0 L (24.0-44.0) % Monocytes % 13.7 H (0.0-12.0) % Eosinophils % 1.7 (0.00-5.0) % Basophils % 1.0 (0.0-0.4) % Absolute Granulocytes 3.84 (1.4-6.9) x10^3/uL Basophils # 0.06 (0-0.4) x10^3/uL PT (9.4-12.5) SECONDS INR (0.8-3.0) Sodium 135 L (137-145) mmol/L Potassium 4.6 (3.5-5.1) mmol/L Chloride 94 L (98-107) mmol/L Carbon Dioxide 31 H (22-30) mmol/L Anion Gap 14.4 (5-15) MEQ/L BUN 29 H (7-17) mg/dL Creatinine 0.84 (0.52-1.04) mg/dL Estimated GFR > 60.0 ML/MIN Glucose 127 H (74-106) mg/dL Lactic Acid 2.9 H (0.4-2.0) Calcium 9.3 (8.4-10.2) mg/dL Total Bilirubin 1.30 (0.2-1.3) mg/dL AST 54 H (14-36) U/L ALT 34 (0-35) U/L Alkaline Phosphatase 107 (38-126) U/L Creatine Kinase 191 H (30-135) U/L Troponin I (0.000-0.034) ng/mL Serum Total Protein 8.4 H (6.3-8.2) g/dL Albumin 4.2 (3.5-5.0) g/dL Lipase 126 (23-300) U/L Urine Color (Yellow) Urine Appearance (Clear) Urine pH (4.6-8.0) Ur Specific [place] (1.005-1.030) Urine Protein (Negative) Urine Glucose (UA) (Negative) mg/dL Urine Ketones (Negative) Urine Blood (Negative) Urine Nitrite (Negative) Urine Bilirubin (Negative) Urine Urobilinogen (0.2) mg/dL Ur Leukocyte Esterase (Negative) U Hyaline Cast (Auto) (0-2) /LPF Urine Microscopic RBC (0-5) /HPF Urine Microscopic WBC (0-5) /HPF Ur Epithelial Cells (None Seen) /HPF Urine Bacteria (None Seen) /HPF Urine Culture Reflexed (NO) 02/20/23 02/20/23 02/20/23 Range/Units 13:03 13:11 13:30 WBC (4.0-10.5) x10^3/uL RBC (4.1-5.4) x10^6/uL Hgb (12.0-16.0) g/dL Hct (35-47) % MCV (78-100) fL MCH (26-32) pg MCHC (32-36) g/dL RDW (11.5-14.0) % Plt Count (150-450) x10^3/uL MPV (7.5-11.0) fL Gran % (36.0-66.0) % Immature Gran % (Auto) (0.00-0.4) % Nucleat RBC Rel Count (0.00-0.1) % Eos # (Auto) (0-0.5) x10^3/uL Immature Gran # (Auto) (0.00-0.03) x10^3u/L Absolute Lymphs (auto) (1.0-4.6) x10^3/uL Absolute Monos (auto) (0.0-1.3) x10^3/uL Absolute Nucleated RBC (0.00-0.01) x10^3u/L Lymphocytes % (24.0-44.0) % Monocytes % (0.0-12.0) % Eosinophils % (0.00-5.0) % Basophils % (0.0-0.4) % Absolute Granulocytes (1.4-6.9) x10^3/uL Basophils # (0-0.4) x10^3/uL PT 71.3 H (9.4-12.5) SECONDS INR 7.60 H* (0.8-3.0) Sodium (137-145) mmol/L Potassium (3.5-5.1) mmol/L Chloride (98-107) mmol/L Carbon Dioxide (22-30) mmol/L Anion Gap (5-15) MEQ/L BUN (7-17) mg/dL Creatinine (0.52-1.04) mg/dL Estimated GFR ML/MIN Glucose (74-106) mg/dL Lactic Acid (0.4-2.0) Calcium (8.4-10.2) mg/dL Total Bilirubin (0.2-1.3) mg/dL AST (14-36) U/L ALT (0-35) U/L Alkaline Phosphatase (38-126) U/L Creatine Kinase (30-135) U/L Troponin I 0.023 (0.000-0.034) ng/mL Serum Total Protein (6.3-8.2) g/dL Albumin (3.5-5.0) g/dL Lipase (23-300) U/L Urine Color Yellow (Yellow) Urine Appearance Clear (Clear) Urine pH 7.0 (4.6-8.0) Ur Specific [place] 1.015 (1.005-1.030) Urine Protein Negative (Negative) Urine Glucose (UA) Negative (Negative) mg/dL Urine Ketones Negative (Negative) Urine Blood Moderate A (Negative) Urine Nitrite Positive A (Negative) Urine Bilirubin Negative (Negative) Urine Urobilinogen 1.0 A (0.2) mg/dL Ur Leukocyte Esterase Trace A (Negative) U Hyaline Cast (Auto) NONE SEEN (0-2) /LPF Urine Microscopic RBC 21-50 A (0-5) /HPF Urine Microscopic WBC 3-5 (0-5) /HPF Ur Epithelial Cells None Seen (None Seen) /HPF Urine Bacteria Many A (None Seen) /HPF Urine Culture Reflexed YES (NO) Urine culture 02/17: Greater than 100,000 E. coli, ESBL producing, resistant to f franco quinolone, Bactrim. - Radiology Impressions Radiology Exams & Impressions: Radiology Procedures Category Date Time Status CHEST 1 VIEW (PORTABLE) Stat Exams 02/20/23 12:40 Completed HEAD WITHOUT CONTRAST [CT] Stat Exams 02/20/23 12:41 Completed - Other Procedures and Tests Respiratory Therapy 02/20/23 16:09 Respiratory Therapy Assessment DAILY Assessment/Plan (1) Fall Current Visit: No Status: Acute Assessment & Plan: 82-year-old woman with a history of COPD, CHF, hypertension, and A-fib, here with recurrent falls. ## Recurrent falls patient with known history of syncope. She has a pacemaker in place. She has prodromal symptoms prior to episodes, consistent with cardiogenic syncope. Unfortunately, had another fall, despite using a rolling walker and having the presence of a home health aide. Now with a scalp laceration that was repaired in the ED. Patient is also supratherapeutic on her warfarin, but no intracranial hemorrhage noted. Hold warfarin We will see if pacemaker can be interrogated PT evaluation Patient may need more support than able to get at home, given her recurrent falls, despite adaptive device and presence of home health aide Hold Lasix in case dehydration is contributing to symptoms ## Asymptomatic bacteriuria patient appears to be colonized with ESBL E. coli, given her multiple frequent positive cultures. However, she has no symptoms of dysuria, and no pyuria on urinalysis. Instead, these appear to be surveillance cultures. There is no indication for treating asymptomatic bacteriuria with antibiotics. The IDSA Choosing Wisely recommendations state to not treat asymptomatic bacteria with antibiotics, as there is no improvement in morbidity or mortality and no clinical benefit. Stop meropenem ## Atrial fibrillation rate controlled, currently in normal sinus rhythm. Patient is currently on warfarin, very supratherapeutic with an INR 7.6. Patient's daughter believes patient was previously on Eliquis, but is not sure why she was moved to warfarin. Despite the scalp trauma, there is no evidence of active bleeding currently. Hold warfarin Monitor INR daily We will reach out to patient's primary care physician Dr. Garcias regarding choice of anticoagulant, and if patient would be a candidate for moving to DOAC with more regular dosing, especially if she has recurrent falls Continue amiodarone 200 daily, Coreg 12.5 BID Continue digoxin 125 mcg daily, and check level in the morning ## Chronic systolic heart failure last echo in our system had EF 40%, but that was in 2013. Appears euvolemic today. Continue home carvedilol 2.5 BID, Entresto BID, digoxin 125 mcg, spironolactone 25 Hold Lasix for now in case contributing to falls, but suspect this is due more to arrhythmia, if so, can restart Lasix 40 mg daily CODE STATUS: Full code Prophylaxis: Holding warfarin for now, monitor INR until comes down below 2 Entirety of encounter took place via telemedicine. Patient consented to telemedi cine. Code(s): W19.XXXA - UNSPECIFIED FALL, INITIAL ENCOUNTER Telemedicine Encounter - Telemedicine Encounter Telemedicine Encounter: The entirety of this encounter was performed via Telemedicine"
[2023-02-20] MEDS: ENTRESTO 49 MG-51 MG TABLET PO SCH (21:37)
[2023-02-20] MEDS ORDERED: Merrem 1 GM in Sodium Chloride 100ML MINI-BAG PLUS 100 ML IV SCH (22:00)
[2023-02-20] MEDS ORDERED: COREG 12.5 MG PO SCH (22:00)
[2023-02-20] MEDS ORDERED: NON-FORMULARY ITEM (Sacubitril/Valsartan [Entresto 24 Mg-26 Mg Tablet] 1 EACH Tablet) PO SCH (22:00)
[2023-02-21] MEDS: TYLENOL 325 MG PO PRN ×2 (00:51→17:08)
[2023-02-21 06:16] LABS: Hematocrit 38.1 % (35-47); Hemoglobin 12.3 g/dL (12.0-16.0); Mean Cell Volume 92.9 fL (78-100); Mean Corpuscular Hgb Concent. 32.3 g/dL (32-36); Mean Platelet Volume 9.7 fL (7.5-11.0); Platelet Count 218 x10^3/uL (150-450); Red Cell Distribution Width 17.8 % (11.5-14.0); White Blood Count 6.9 x10^3/uL (4.0-10.5)
[2023-02-21 06:54] LABS: ANION GAP 11.4 MEQ/L (5-15); BLOOD UREA NITROGEN 24 mg/dL (7-17); CHLORIDE 95 mmol/L (98-107); Calcium 8.7 mg/dL (8.4-10.2); Carbon Dioxide 29 mmol/L (22-30); Creatinine 1 0.88 mg/dL (0.52-1.04); EST GLOMERULAR FILTRATION RATE > 60.0 ML/MIN; Glucose 96 mg/dL (74-106); Potassium 4.1 mmol/L (3.5-5.1); SODIUM 132 mmol/L (137-145)
[2023-02-21 06:59] LABS: INR 4.95 (0.8-3.0); PROTIME 47.9 SECONDS (9.4-12.5)
[2023-02-21] MEDS ORDERED: NON-FORMULARY ITEM (Multivitamin [Multivitamin] 1 EACH Tablet) PO SCH (10:00)
[2023-02-21] MEDS ORDERED: NON-FORMULARY ITEM (Escitalopram Oxalate [Lexapro] 5 MG Tablet) PO SCH (10:00)
[2023-02-21] MEDS ORDERED: NON-FORMULARY ITEM (Potassium Chloride [Potassium Chloride] 20 MEQ Tab.Er.Prt) PO SCH (10:00)
[2023-02-21] MEDS ORDERED: Lanoxin 0.125MG TABLET PO SCH ×2 (10:00)
[2023-02-21] MEDS ORDERED: Aldactone 25 MG PO SCH (10:00)
[2023-02-21] MEDS: Cordarone 200 MG PO SCH (10:54)
[2023-02-21] MEDS: MAG-OX 400 PO SCH (10:55)
[2023-02-21] MEDS: ENTRESTO 49 MG-51 MG TABLET PO SCH ×2 (10:55→21:17)
[2023-02-21] MEDS: VITAMIN D PO SCH (10:55)
[2023-02-21] MEDS: Klor Con PO SCH (10:55)
[2023-02-21] MEDS: Lexapro PO SCH (10:55)
[2023-02-21] MEDS: THERAGRAN MULTIVITAMIN PO SCH (10:55)
--- NOTE | 2023-02-21 12:31 | PCM.NOTE ---
Date and Time: 02/21/23 1224 Subjective Assessment: Overnight, patient was bradycardic and hypotensive, and her Entresto and carvedilol were held. Patient is not as alert as yesterday, but able to answer questions well. States it is hard to see out of her right eye because her orbit is more swollen closed, but she is not having any pain there, and with vision she does have is unimpaired. No headaches, nausea, or focal numbness or weakness. Objective Exam General Appearance: no apparent distress Neurologic Exam: alert, No oriented x 3, No motor deficits, No sensory deficit Wound Assessment: Skin/Wound Assessment Wound/Incision Assessment Start: 02/20/23 15:45 Text: Status: Active Freq: Q6H Protocol: Document 02/21/23 08:00 [facility] (Rec: 02/21/23 11:23 [facility] [id number]) Co-Sign 02/21/23 08:00 AW Wound/Incision Assessment Right Medial Buttock Wound Assessment Shift Assessment Wound Type Pressure Ulcer Wound Stage Stage II Drainage Amount None Drainage Odor None/Absent General Appearance Open to air,Reddened Surrounding Tissue Bright Red,Blanched/Dull Wound Photo Photo Taken No Eye Exam: other (Hematoma around the right eye, daily most of lobate, with difficult opening of palpebra but able to do so.) Respiratory Exam: normal breath sounds, No lungs clear, No respiratory distress Cardiovascular Exam: regular rate/rhythm, normal heart sounds, No edema Gastrointestinal/Abdomen Exam: soft, No tenderness, No distention OBJECTIVE DATA Vital Signs: Vital Signs - 24 hr Temp Pulse Resp BP BP Pulse Ox 02/21/23 11:48 97.9 F 59 L 16 100/45 95 02/21/23 07:26 60 16 95 02/21/23 07:21 97.9 F 67 16 115/57 97 02/21/23 03:59 97.9 F 58 L 18 117/73 95 02/21/23 00:00 98.4 F 58 L 16 111/53 94 L 02/20/23 19:54 97.5 F 60 17 100/55 94 L 02/20/23 19:10 61 16 97 02/20/23 16:09 60 16 96 02/20/23 15:13 97.1 F 60 18 125/53 96 02/20/23 15:03 98 02/20/23 14:17 60 18 137/63 98 02/20/23 13:00 137/84 02/20/23 12:29 98.0 F 60 142/70 98 Pain Assessment - Last Documented Pain Intensity 0 Intake and Output: Intake & Output 02/19/23 02/20/23 02/21/23 02/22/23 11:59 11:59 11:59 11:59 Intake Total 770 Output Total 650 Balance 120 Weight 88.4 kg Lab Results: Lab Results-Last 24 Hours 02/20/23 02/20/23 02/20/23 Range/Units 12:40 13:01 13:03 WBC 5.9 (4.0-10.5) x10^3/uL RBC 4.76 (4.1-5.4) x10^6/uL Hgb 14.3 (12.0-16.0) g/dL Hct 47.2 H (35-47) % MCV 99.2 (78-100) fL MCH 30.0 (26-32) pg MCHC 30.3 L (32-36) g/dL RDW 18.2 H (11.5-14.0) % Plt Count 299 (150-450) x10^3/uL MPV 9.9 (7.5-11.0) fL Gran % 64.8 (36.0-66.0) % Immature Gran % (Auto) 0.8 H (0.00-0.4) % Nucleat RBC Rel Count 0.0 (0.00-0.1) % Eos # (Auto) 0.10 (0-0.5) x10^3/uL Immature Gran # (Auto) 0.05 H (0.00-0.03) x10^3u/L Absolute Lymphs (auto) 1.07 (1.0-4.6) x10^3/uL Absolute Monos (auto) 0.81 (0.0-1.3) x10^3/uL Absolute Nucleated RBC 0.00 (0.00-0.01) x10^3u/L Lymphocytes % 18.0 L (24.0-44.0) % Monocytes % 13.7 H (0.0-12.0) % Eosinophils % 1.7 (0.00-5.0) % Basophils % 1.0 (0.0-0.4) % Absolute Granulocytes 3.84 (1.4-6.9) x10^3/uL Basophils # 0.06 (0-0.4) x10^3/uL PT (9.4-12.5) SECONDS INR (0.8-3.0) Sodium 135 L (137-145) mmol/L Potassium 4.6 (3.5-5.1) mmol/L Chloride 94 L (98-107) mmol/L Carbon Dioxide 31 H (22-30) mmol/L Anion Gap 14.4 (5-15) MEQ/L BUN 29 H (7-17) mg/dL Creatinine 0.84 (0.52-1.04) mg/dL Estimated GFR > 60.0 ML/MIN Glucose 127 H (74-106) mg/dL Lactic Acid 2.9 H (0.4-2.0) Calcium 9.3 (8.4-10.2) mg/dL Total Bilirubin 1.30 (0.2-1.3) mg/dL AST 54 H (14-36) U/L ALT 34 (0-35) U/L Alkaline Phosphatase 107 (38-126) U/L Creatine Kinase 191 H (30-135) U/L Troponin I (0.000-0.034) ng/mL Serum Total Protein 8.4 H (6.3-8.2) g/dL Albumin 4.2 (3.5-5.0) g/dL Lipase 126 (23-300) U/L Urine Color (Yellow) Urine Appearance (Clear) Urine pH (4.6-8.0) Ur Specific [place] (1.005-1.030) Urine Protein (Negative) Urine Glucose (UA) (Negative) mg/dL Urine Ketones (Negative) Urine Blood (Negative) Urine Nitrite (Negative) Urine Bilirubin (Negative) Urine Urobilinogen (0.2) mg/dL Ur Leukocyte Esterase (Negative) U Hyaline Cast (Auto) (0-2) /LPF Urine Microscopic RBC (0-5) /HPF Urine Microscopic WBC (0-5) /HPF Ur Epithelial Cells (None Seen) /HPF Urine Bacteria (None Seen) /HPF Urine Culture Reflexed (NO) Digoxin (0.8-1.9) ng/mL 02/20/23 02/20/23 02/20/23 Range/Units 13:03 13:11 13:30 WBC (4.0-10.5) x10^3/uL RBC (4.1-5.4) x10^6/uL Hgb (12.0-16.0) g/dL Hct (35-47) % MCV (78-100) fL MCH (26-32) pg MCHC (32-36) g/dL RDW (11.5-14.0) % Plt Count (150-450) x10^3/uL MPV (7.5-11.0) fL Gran % (36.0-66.0) % Immature Gran % (Auto) (0.00-0.4) % Nucleat RBC Rel Count (0.00-0.1) % Eos # (Auto) (0-0.5) x10^3/uL Immature Gran # (Auto) (0.00-0.03) x10^3u/L Absolute Lymphs (auto) (1.0-4.6) x10^3/uL Absolute Monos (auto) (0.0-1.3) x10^3/uL Absolute Nucleated RBC (0.00-0.01) x10^3u/L Lymphocytes % (24.0-44.0) % Monocytes % (0.0-12.0) % Eosinophils % (0.00-5.0) % Basophils % (0.0-0.4) % Absolute Granulocytes (1.4-6.9) x10^3/uL Basophils # (0-0.4) x10^3/uL PT 71.3 H (9.4-12.5) SECONDS INR 7.60 H* (0.8-3.0) Sodium (137-145) mmol/L Potassium (3.5-5.1) mmol/L Chloride (98-107) mmol/L Carbon Dioxide (22-30) mmol/L Anion Gap (5-15) MEQ/L BUN (7-17) mg/dL Creatinine (0.52-1.04) mg/dL Estimated GFR ML/MIN Glucose (74-106) mg/dL Lactic Acid (0.4-2.0) Calcium (8.4-10.2) mg/dL Total Bilirubin (0.2-1.3) mg/dL AST (14-36) U/L ALT (0-35) U/L Alkaline Phosphatase (38-126) U/L Creatine Kinase (30-135) U/L Troponin I 0.023 (0.000-0.034) ng/mL Serum Total Protein (6.3-8.2) g/dL Albumin (3.5-5.0) g/dL Lipase (23-300) U/L Urine Color Yellow (Yellow) Urine Appearance Clear (Clear) Urine pH 7.0 (4.6-8.0) Ur Specific [place] 1.015 (1.005-1.030) Urine Protein Negative (Negative) Urine Glucose (UA) Negative (Negative) mg/dL Urine Ketones Negative (Negative) Urine Blood Moderate A (Negative) Urine Nitrite Positive A (Negative) Urine Bilirubin Negative (Negative) Urine Urobilinogen 1.0 A (0.2) mg/dL Ur Leukocyte Esterase Trace A (Negative) U Hyaline Cast (Auto) NONE SEEN (0-2) /LPF Urine Microscopic RBC 21-50 A (0-5) /HPF Urine Microscopic WBC 3-5 (0-5) /HPF Ur Epithelial Cells None Seen (None Seen) /HPF Urine Bacteria Many A (None Seen) /HPF Urine Culture Reflexed YES (NO) Digoxin (0.8-1.9) ng/mL 02/21/23 02/21/23 02/21/23 Range/Units 05:35 05:35 05:35 WBC 6.9 (4.0-10.5) x10^3/uL RBC 4.10 (4.1-5.4) x10^6/uL Hgb 12.3 (12.0-16.0) g/dL Hct 38.1 (35-47) % MCV 92.9 D (78-100) fL MCH 30.0 (26-32) pg MCHC 32.3 (32-36) g/dL RDW 17.8 H (11.5-14.0) % Plt Count 218 (150-450) x10^3/uL MPV 9.7 (7.5-11.0) fL Gran % (36.0-66.0) % Immature Gran % (Auto) (0.00-0.4) % Nucleat RBC Rel Count (0.00-0.1) % Eos # (Auto) (0-0.5) x10^3/uL Immature Gran # (Auto) (0.00-0.03) x10^3u/L Absolute Lymphs (auto) (1.0-4.6) x10^3/uL Absolute Monos (auto) (0.0-1.3) x10^3/uL Absolute Nucleated RBC (0.00-0.01) x10^3u/L Lymphocytes % (24.0-44.0) % Monocytes % (0.0-12.0) % Eosinophils % (0.00-5.0) % Basophils % (0.0-0.4) % Absolute Granulocytes (1.4-6.9) x10^3/uL Basophils # (0-0.4) x10^3/uL PT 47.9 H (9.4-12.5) SECONDS INR 4.95 H (0.8-3.0) Sodium 132 L (137-145) mmol/L Potassium 4.1 (3.5-5.1) mmol/L Chloride 95 L (98-107) mmol/L Carbon Dioxide 29 (22-30) mmol/L Anion Gap 11.4 (5-15) MEQ/L BUN 24 H (7-17) mg/dL Creatinine 0.88 (0.52-1.04) mg/dL Estimated GFR > 60.0 ML/MIN Glucose 96 (74-106) mg/dL Lactic Acid (0.4-2.0) Calcium 8.7 (8.4-10.2) mg/dL Total Bilirubin (0.2-1.3) mg/dL AST (14-36) U/L ALT (0-35) U/L Alkaline Phosphatase (38-126) U/L Creatine Kinase (30-135) U/L Troponin I (0.000-0.034) ng/mL Serum Total Protein (6.3-8.2) g/dL Albumin (3.5-5.0) g/dL Lipase (23-300) U/L Urine Color (Yellow) Urine Appearance (Clear) Urine pH (4.6-8.0) Ur Specific [place] (1.005-1.030) Urine Protein (Negative) Urine Glucose (UA) (Negative) mg/dL Urine Ketones (Negative) Urine Blood (Negative) Urine Nitrite (Negative) Urine Bilirubin (Negative) Urine Urobilinogen (0.2) mg/dL Ur Leukocyte Esterase (Negative) U Hyaline Cast (Auto) (0-2) /LPF Urine Microscopic RBC (0-5) /HPF Urine Microscopic WBC (0-5) /HPF Ur Epithelial Cells (None Seen) /HPF Urine Bacteria (None Seen) /HPF Urine Culture Reflexed (NO) Digoxin (0.8-1.9) ng/mL 02/21/23 Range/Units 05:35 WBC (4.0-10.5) x10^3/uL RBC (4.1-5.4) x10^6/uL Hgb (12.0-16.0) g/dL Hct (35-47) % MCV (78-100) fL MCH (26-32) pg MCHC (32-36) g/dL RDW (11.5-14.0) % Plt Count (150-450) x10^3/uL MPV (7.5-11.0) fL Gran % (36.0-66.0) % Immature Gran % (Auto) (0.00-0.4) % Nucleat RBC Rel Count (0.00-0.1) % Eos # (Auto) (0-0.5) x10^3/uL Immature Gran # (Auto) (0.00-0.03) x10^3u/L Absolute Lymphs (auto) (1.0-4.6) x10^3/uL Absolute Monos (auto) (0.0-1.3) x10^3/uL Absolute Nucleated RBC (0.00-0.01) x10^3u/L Lymphocytes % (24.0-44.0) % Monocytes % (0.0-12.0) % Eosinophils % (0.00-5.0) % Basophils % (0.0-0.4) % Absolute Granulocytes (1.4-6.9) x10^3/uL Basophils # (0-0.4) x10^3/uL PT (9.4-12.5) SECONDS INR (0.8-3.0) Sodium (137-145) mmol/L Potassium (3.5-5.1) mmol/L Chloride (98-107) mmol/L Carbon Dioxide (22-30) mmol/L Anion Gap (5-15) MEQ/L BUN (7-17) mg/dL Creatinine (0.52-1.04) mg/dL Estimated GFR ML/MIN Glucose (74-106) mg/dL Lactic Acid (0.4-2.0) Calcium (8.4-10.2) mg/dL Total Bilirubin (0.2-1.3) mg/dL AST (14-36) U/L ALT (0-35) U/L Alkaline Phosphatase (38-126) U/L Creatine Kinase (30-135) U/L Troponin I (0.000-0.034) ng/mL Serum Total Protein (6.3-8.2) g/dL Albumin (3.5-5.0) g/dL Lipase (23-300) U/L Urine Color (Yellow) Urine Appearance (Clear) Urine pH (4.6-8.0) Ur Specific [place] (1.005-1.030) Urine Protein (Negative) Urine Glucose (UA) (Negative) mg/dL Urine Ketones (Negative) Urine Blood (Negative) Urine Nitrite (Negative) Urine Bilirubin (Negative) Urine Urobilinogen (0.2) mg/dL Ur Leukocyte Esterase (Negative) U Hyaline Cast (Auto) (0-2) /LPF Urine Microscopic RBC (0-5) /HPF Urine Microscopic WBC (0-5) /HPF Ur Epithelial Cells (None Seen) /HPF Urine Bacteria (None Seen) /HPF Urine Culture Reflexed (NO) Digoxin 1.5 (0.8-1.9) ng/mL Radiology Exams: Radiology Procedures Category Date Time Status CHEST 1 VIEW (PORTABLE) Stat Exams 02/20/23 12:40 Completed HEAD WITHOUT CONTRAST [CT] Stat Exams 02/20/23 12:41 Completed Multi-Disciplinary Progress Notes: Multi-Disciplinary Progress Notes 02/20/23 16:42 Occupational Therapy Note by Yakelin Renteria OCCUPATIONAL THERAPY EVALUATION: OT ORDERS RECEIVED. PATIENT RECENTLY ADMITTED AND ACUTELY ILL. OT WILL ASSESS PATIENT'S STATUS ON THURSDAY IF REMAINS ON ACU. OT TO CONTINUE FOLLOWING. Initialized on 02/20/23 16:42 - END OF NOTE 02/20/23 16:04 Physical Therapy Note by Craig(L#[id number])Tova PT/OT ORDERS RECEIVED. PT. JUST ADMITTED AND IS ACUTELY ILL. WILL ASSESS STATUS ON THURSDAY IF PT. STILL HERE ON ACU. Initialized on 02/20/23 16:04 - END OF NOTE Assessment/Plan (1) Fall Current Visit: No Status: Acute Assessment & Plan: 82-year-old woman with a history of COPD, CHF, hypertension, and A-fib, here with recurrent falls. ## Recurrent falls patient with known history of syncope. She has a pacemaker in place. She has prodromal symptoms prior to episodes, consistent with cardiogenic syncope. With recurrent fall, with right orbital hematoma, in the setting of supratherapeutic INR. No new bleeding noted today. Continue to hold warfarin Pending possible interrogation of pacemaker PT evaluation Patient may need more support than able to get at home, given her recurrent falls, despite adaptive device and presence of home health aide Continue to hold Lasix in case dehydration is contributing to symptoms ## Asymptomatic bacteriuria patient appears to be colonized with ESBL E. coli, given her multiple frequent positive cultures. However, she has no symptoms of dysuria, and no pyuria on urinalysis. Discussed with patient's primary physician, Dr. Arnold, and agree no current role for antibiotics. ## Atrial fibrillation rate controlled, currently in normal sinus rhythm. Warfarin being held due to supratherapeutic INR on arrival, down from 7.6 to 5 today. Patient was previously on Eliquis, changed to warfarin for uncertain reason. Continue to hold warfarin Monitor INR daily Reach out to patient's cotton washer Dr.Nawat May, to see if patient can transfer her to a DOAC for reduce bleeding risk in the setting of frequent falls, versus stopping anticoagulation completely Continue amiodarone 200 daily Discontinue carvedilol because of bradycardia and hypotension Decrease digoxin to every other day because of relatively higher level on labs today ## Chronic systolic heart failure last echo in our system had EF 40%, but that was in 2013. Appears euvolemic today. Continue Entresto BID, spironolactone 25 Holding carvedilol as above due to bradycardia and hypotension Decreasing digoxin to every other day as above Hold Lasix for now in case contributing to falls, but suspect this is due more to arrhythmia, if so, can restart Lasix 40 mg daily CODE STATUS: Full code Prophylaxis: Holding warfarin for now, monitor INR until comes down below 2 Dispo: I suspect patient will need placement. Will discuss further with daughter when arrives. Entirety of encounter took place via telemedicine. Patient consented to telemedicine. Code(s): W19.XXXA - UNSPECIFIED FALL, INITIAL ENCOUNTER Telemedicine Encounter - Telemedicine Encounter Telemedicine Encounter: The entirety of this encounter was performed via Telemedicine"
[2023-02-22] MEDS: TYLENOL 325 MG PO PRN ×2 (00:58→12:27)
[2023-02-22 05:56] LABS: Hematocrit 37.1 % (35-47); Hemoglobin 11.8 g/dL (12.0-16.0); Mean Cell Volume 93.7 fL (78-100); Mean Corpuscular Hemoglobin 29.8 pg (26-32); Mean Corpuscular Hgb Concent. 31.8 g/dL (32-36); Mean Platelet Volume 9.9 fL (7.5-11.0); Platelet Count 221 x10^3/uL (150-450); Red Blood Count 3.96 x10^6/uL (4.1-5.4); Red Cell Distribution Width 17.7 % (11.5-14.0); White Blood Count 7.1 x10^3/uL (4.0-10.5)
[2023-02-22 06:25] LABS: INR 3.01 (0.8-3.0); PROTIME 30.2 SECONDS (9.4-12.5)
[2023-02-22 06:29] LABS: BLOOD UREA NITROGEN 21 mg/dL (7-17); CHLORIDE 97 mmol/L (98-107); Calcium 8.4 mg/dL (8.4-10.2); Carbon Dioxide 29 mmol/L (22-30); Creatinine 1 0.73 mg/dL (0.52-1.04); EST GLOMERULAR FILTRATION RATE > 60.0 ML/MIN; Glucose 96 mg/dL (74-106); SODIUM 133 mmol/L (137-145)
[2023-02-22] MEDS ORDERED: Sodium Chloride 0.9% 500 ML 500 ML IV ONE (09:45)
[2023-02-22] MEDS: Lanoxin 0.125MG TABLET PO SCH (10:42)
[2023-02-22] MEDS: Klor Con PO SCH (10:42)
[2023-02-22] MEDS: VITAMIN D PO SCH (10:43)
[2023-02-22] MEDS: MAG-OX 400 PO SCH (10:44)
[2023-02-22] MEDS: Lexapro PO SCH (10:44)
[2023-02-22] MEDS: ENTRESTO 49 MG-51 MG TABLET PO SCH ×2 (10:44→21:18)
[2023-02-22] MEDS: Cordarone 200 MG PO SCH (10:45)
[2023-02-22] MEDS: THERAGRAN MULTIVITAMIN PO SCH (10:45)
--- NOTE | 2023-02-22 11:33 | PCM.NOTE ---
Date and Time: 02/22/23 1123 Subjective Assessment: No acute events overnight, but still had low diastolic BP, and her Entresto was held. HR around 60, paced. She is eating about 50% of her meals, and complained of feeling dizzy on standing. Able to open her eyes a little better today; no vision changes. Required [id number] assistance to get her to bedside commode yesterday. - Review of Systems Constitutional: No Fever, No Chills Eyes: No Eye Pain, No Vision Changes Neurological: Dizziness, No Sensory Changes, No Vertigo All Other Systems: Reviewed and Negative Objective Exam General Appearance: no apparent distress Neurologic Exam: alert, No motor deficits, No sensory deficit Wound Assessment: Skin/Wound Assessment Wound/Incision Assessment Start: 02/20/23 15:45 Text: Status: Active Freq: Q6H Protocol: Document 02/22/23 08:00 [facility] (Rec: 02/22/23 09:09 [facility] [id number]) Co-Sign 02/22/23 08:00 AW Wound/Incision Assessment Right Medial Buttock Wound Assessment Shift Assessment Wound Type Pressure Ulcer Wound Stage Stage II Drainage Amount None Drainage Odor None/Absent General Appearance Open to air,Reddened Surrounding Tissue Bright Red,Blanched/Dull Comment BARRIER CREAM, FREQUENT REPOSITIONING AND PILLOW SUPPORT. Wound Photo Photo Taken No Eye Exam: other (hematoma around right orbit decreased in intensity, and patient able to open eyelid fully. Hematoma has spread down facial planes to right side of chin, and inferior portion of left orbit) Respiratory Exam: normal breath sounds, lungs clear, other (on room air) Cardiovascular Exam: regular rate/rhythm, No murmur, No edema Gastrointestinal/Abdomen Exam: soft, No tenderness, No distention OBJECTIVE DATA Vital Signs: Vital Signs - 24 hr Temp Pulse Resp BP BP Pulse Ox 02/22/23 10:42 61 111/45 02/22/23 09:03 61 16 98 02/22/23 06:48 97.0 F 60 16 111/45 98 02/22/23 03:48 97.8 F 75 18 125/59 95 02/21/23 23:47 98.3 F 60 19 124/51 95 02/21/23 19:35 97.7 F 59 L 17 106/47 95 02/21/23 19:07 95 02/21/23 19:04 58 L 16 02/21/23 15:13 98.0 F 59 L 16 144/67 96 02/21/23 11:48 97.9 F 59 L 16 100/45 95 Pain Assessment - Last Documented Pain Intensity 0 Pain Scale Used 0-10 Pain Scale Intake and Output: Intake & Output 02/19/23 02/20/23 02/21/23 02/22/23 11:59 11:59 11:59 11:59 Intake Total 770 860 Output Total 650 1850 Balance 120 -990 Weight 88.4 kg Lab Results: Lab Results-Last 24 Hours 02/22/23 02/22/23 02/22/23 Range/Units 05:20 05:20 05:20 WBC 7.1 (4.0-10.5) x10^3/uL RBC 3.96 L (4.1-5.4) x10^6/uL Hgb 11.8 L (12.0-16.0) g/dL Hct 37.1 (35-47) % MCV 93.7 (78-100) fL MCH 29.8 (26-32) pg MCHC 31.8 L (32-36) g/dL RDW 17.7 H (11.5-14.0) % Plt Count 221 (150-450) x10^3/uL MPV 9.9 (7.5-11.0) fL PT 30.2 H (9.4-12.5) SECONDS INR 3.01 H D (0.8-3.0) Sodium 133 L (137-145) mmol/L Potassium 4.0 (3.5-5.1) mmol/L Chloride 97 L (98-107) mmol/L Carbon Dioxide 29 (22-30) mmol/L Anion Gap 11.0 (5-15) MEQ/L BUN 21 H (7-17) mg/dL Creatinine 0.73 (0.52-1.04) mg/dL Estimated GFR > 60.0 ML/MIN Glucose 96 (74-106) mg/dL Calcium 8.4 (8.4-10.2) mg/dL Radiology Exams: Radiology Procedures Category Date Time Status CHEST 1 VIEW (PORTABLE) Stat Exams 02/20/23 12:40 Completed HEAD WITHOUT CONTRAST [CT] Stat Exams 02/20/23 12:41 Completed Multi-Disciplinary Progress Notes: Multi-Disciplinary Progress Notes 02/21/23 13:21 Respiratory Note by DevonNancy PT'S DAUGHTER WILL BRING IN PT'S HOME TRELEGY INHALER TOMORROW. SHE FORGOT TO BRING IT TODAY. Initialized on 02/21/23 13:21 - END OF NOTE Assessment/Plan (1) Fall Current Visit: No Status: Acute Assessment & Plan: 82-year-old woman with a history of COPD, CHF, hypertension, and A-fib, here with recurrent falls. ## Recurrent falls patient with known history of syncope. She has a pacemaker in place. She has prodromal symptoms prior to episodes, consistent with cardiogenic syncope. With recurrent fall, with right orbital hematoma, in the setting of supratherapeutic INR. No new bleeding noted today, and hematoma around right orbit is improving. - Continue to hold warfarin - Pending possible interrogation of pacemaker - pending PT evaluation - Patient will need more support than able to get at home due to her mobility issues - she fell this time despite using an adaptive device and having home health aide assisting her at the time - Continue to hold Lasix in case dehydration is contributing to symptoms - give NS 500 ml over 10 hrs for continued dizziness on standing - gentle because of HFrEF ## Atrial fibrillation rate controlled, currently in paced rhythm at 60 bpm. Warfarin being held due to supratherapeutic INR on arrival, down from 7.6 on arrival to 3 today. Patient was previously on Eliquis, changed to warfarin for uncertain reason. - Continue to hold warfarin - Monitor INR daily - Reach out tomorrow to patient's management consultant Dr.Nawat May, to see if patient's anticoagulation can be changed to a DOAC for reduce bleeding risk in the setting of frequent falls, versus stopping anticoagulation completely because of fall risk - Continue amiodarone 200 daily - continue decreased dose of digoxin 125 mcg every other day (goal digoxin level in lower half of normal range) - carvedilol stopped due to hypotension ## Chronic systolic heart failure last echo in our system had EF 40%, but that was in 2013. Appears a little hypovolemic today from poor PO intake. Still hypotensive overnight. - stop spironolactone due to hypotension - holding carvedilol due to hypotension - continue Entresto BID, digoxin 125 mcg every other day - consider placing on Toprol XL if BP can tolerate it better than Coreg - holding Lasix due to dizziness and poor PO intake - monitor as gently give IV fluids as above ## Asymptomatic bacteriuria patient appears to be colonized with ESBL E. coli, given her multiple frequent positive cultures. However, she has no symptoms of dysuria, and no pyuria on urinalysis. Discussed with patient's primary physician, Dr. Arnold, and agree no current role for antibiotics. CODE STATUS: Full code Prophylaxis: Holding warfarin for now, monitor INR until comes down below 2 Dispo: Will need placement for safety with mobility. Will discuss further with daughter when arrives. Entirety of encounter took place via telemedicine. Patient consented to telemedicine. Code(s): W19.XXXA - UNSPECIFIED FALL, INITIAL ENCOUNTER Telemedicine Encounter - Telemedicine Encounter Telemedicine Encounter: The entirety of this encounter was performed via Telemedicine"
[2023-02-23 04:31] LABS: Hematocrit 37.2 % (35-47); Hemoglobin 12.1 g/dL (12.0-16.0); Mean Corpuscular Hemoglobin 30.3 pg (26-32); Mean Corpuscular Hgb Concent. 32.5 g/dL (32-36); Mean Platelet Volume 9.6 fL (7.5-11.0); Platelet Count 220 x10^3/uL (150-450); Red Cell Distribution Width 17.9 % (11.5-14.0); White Blood Count 8.5 x10^3/uL (4.0-10.5)
[2023-02-23 04:45] LABS: BLOOD UREA NITROGEN 19 mg/dL (7-17); CHLORIDE 98 mmol/L (98-107); Calcium 8.3 mg/dL (8.4-10.2); Carbon Dioxide 28 mmol/L (22-30); Creatinine 1 0.74 mg/dL (0.52-1.04); EST GLOMERULAR FILTRATION RATE > 60.0 ML/MIN; Glucose 95 mg/dL (74-106); Potassium 4.7 mmol/L (3.5-5.1); SODIUM 131 mmol/L (137-145)
[2023-02-23 04:57] LABS: INR 1.91 (0.8-3.0); PROTIME 19.8 SECONDS (9.4-12.5)
[2023-02-23] MEDS: Cordarone 200 MG PO SCH (09:18)
[2023-02-23] MEDS: MAG-OX 400 PO SCH (09:18)
[2023-02-23] MEDS: Klor Con PO SCH (09:18)
[2023-02-23] MEDS: THERAGRAN MULTIVITAMIN PO SCH (09:18)
[2023-02-23] MEDS: Lexapro PO SCH (09:19)
[2023-02-23] MEDS: VITAMIN D PO SCH (09:20)
[2023-02-23] MEDS: ENTRESTO 49 MG-51 MG TABLET PO SCH ×2 (09:21→22:14)
--- NOTE | 2023-02-23 10:10 | PCM.NOTE ---
Date and Time: 02/23/23 1001 Subjective Assessment: No acute events overnight. Feels "not too bad". Denies any vision changes or orbit pain. Able to eat about half of her breakfast. Still has some lightheadedness when she tries to sit up or walk. Objective Exam General Appearance: no apparent distress Neurologic Exam: alert Wound Assessment: Skin/Wound Assessment Wound/Incision Assessment Start: 02/20/23 15:45 Text: Status: Active Freq: Q6H Protocol: Document 02/23/23 07:52 MH (Rec: 02/23/23 08:00 [id number]) Wound/Incision Assessment Right Medial Buttock Wound Assessment Shift Assessment Wound Type Pressure Ulcer Wound Stage Stage II Drainage Amount None Drainage Odor None/Absent General Appearance Open to air,Reddened Surrounding Tissue Bright Red,Blanched/Dull Wound Photo Photo Taken No Eye Exam: other (Decreasing hematoma around right eye, now with some spread of the hematoma along fascial planes of the left eye and the right chin. Able to open and close eye appropriately.) Respiratory Exam: normal breath sounds, lungs clear, No respiratory distress Cardiovascular Exam: regular rate/rhythm, No murmur, No edema Gastrointestinal/Abdomen Exam: soft, No tenderness, No distention OBJECTIVE DATA Vital Signs: Vital Signs - 24 hr Temp Pulse Resp BP BP BP Pulse Ox 02/23/23 09:25 66 16 97 02/23/23 07:30 97.5 F 65 17 105/49 95 02/23/23 04:00 97.7 F 60 21 108/50 93 L 02/22/23 19:40 97.7 F 60 21 126/58 98 02/22/23 19:20 97 H 16 97 02/22/23 16:00 97.6 F 60 18 117/50 95 02/22/23 12:00 97.0 F 59 L 17 108/55 95 02/22/23 10:42 61 111/45 Pain Assessment - Last Documented Pain Intensity 0 Pain Scale Used 0-10 Pain Scale Intake and Output: Intake & Output 02/20/23 02/21/23 02/22/23 02/23/23 11:59 11:59 11:59 11:59 Intake Total 885 848 6282 Output Total 650 1850 800 Balance 120 -990 503 Weight 88.4 kg Lab Results: Lab Results-Last 24 Hours 02/23/23 02/23/23 02/23/23 Range/Units 04:21 04:21 04:21 WBC 8.5 (4.0-10.5) x10^3/uL RBC 4.00 L (4.1-5.4) x10^6/uL Hgb 12.1 (12.0-16.0) g/dL Hct 37.2 (35-47) % MCV 93.0 (78-100) fL MCH 30.3 (26-32) pg MCHC 32.5 (32-36) g/dL RDW 17.9 H (11.5-14.0) % Plt Count 220 (150-450) x10^3/uL MPV 9.6 (7.5-11.0) fL PT 19.8 H (9.4-12.5) SECONDS INR 1.91 D (0.8-3.0) Sodium 131 L (137-145) mmol/L Potassium 4.7 (3.5-5.1) mmol/L Chloride 98 (98-107) mmol/L Carbon Dioxide 28 (22-30) mmol/L Anion Gap 10.0 (5-15) MEQ/L BUN 19 H (7-17) mg/dL Creatinine 0.74 (0.52-1.04) mg/dL Estimated GFR > 60.0 ML/MIN Glucose 95 (74-106) mg/dL Calcium 8.3 L (8.4-10.2) mg/dL Multi-Disciplinary Progress Notes: Multi-Disciplinary Progress Notes 02/23/23 09:40 Case Management Note by Gogo Moreno S/W WITH [facility] AND PATIENT STILL NOT ELIGIBLE FOR NEW BENEFIT PERIOD AND WOULD BE PRIVATE PAY AT THIS TIME. NURSING STAFF AWARE. Initialized on 02/23/23 09:40 - END OF NOTE 02/22/23 19:27 Nutrition Note by Jesus Alberto Mcginnis assisted pt back to bed. pt had a large formed, bm. pt lying on right side with pillows for weight redistribution. pt denies pain, sob, dizziness at this time. will cont to monitor. Initialized on 02/22/23 19:27 - END OF NOTE Assessment/Plan (1) Fall Current Visit: No Status: Acute Assessment & Plan: 82-year-old woman with a history of COPD, CHF, hypertension, and A-fib, here with recurrent falls. ## Recurrent falls patient with known history of syncope she has a pacemaker in place. She has prodromal symptoms prior to episodes, consistent with cardiogenic syncope. With recurrent fall, with right orbital hematoma, in the setting of supratherapeutic INR. No new bleeding noted today, and hematoma around right orbit is improving. - Continue to hold warfarin - pending PT evaluation - Continue to hold Lasix in case dehydration is contributing to symptoms ## Mobility, placement patient has recurrent falls, including this time 1 fell at home despite using a walker and home health aide present. At this point, patient would likely have the most benefit from placement in jail. She does not have any further skilled day benefits, but will discuss with family if want to admit to jail under self-pay. Pending daughter coming in, but will recommend placement if at all possible. Otherwise, patient will have high risk of recurrent falls. ## Atrial fibrillation rate controlled, currently in paced rhythm at 60 bpm. Warfarin being held due to supratherapeutic INR on arrival, down from 7.6 on arrival to 1.9 today. At this point, patient's recurrent falls puts her at too high risk to continue anticoagulation. - Continue amiodarone 200 daily - continue decreased dose of digoxin 125 mcg every other day (goal digoxin level in lower half of normal range) - carvedilol stopped due to hypotension No further anticoagulation secondary to high fall risk ## Chronic systolic heart failure last echo in our system had EF 40%, but that was in 2013. Blood pressure still on the low side, but overall controlled. Appears euvolemic today. 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 No current role for antibiotics, as treatment does not lead to clinical benefit and leads to unwanted side effects. CODE STATUS: Full code Prophylaxis: Avoiding warfarin due to supratherapeutic INR Dispo: Recommending jail, otherwise plan for home with family. Can resume home health. Entirety of encounter took place via telemedicine. Patient consented to telemedicine. Code(s): W19.XXXA - UNSPECIFIED FALL, INITIAL ENCOUNTER Telemedicine Encounter - Telemedicine Encounter Telemedicine Encounter: The entirety of this encounter was performed via Telemedicine"
[2023-02-23] MEDS: TYLENOL 325 MG PO PRN ×2 (12:14→22:14)
[2023-02-23] MEDS ORDERED: Coumadin 3 MG PO ONE (18:00)
[2023-02-24 05:28] LABS: ISTAT K 4.3 mmol/L (3.5-4.9)
[2023-02-24 05:29] LABS: ISTAT CREA 0.8 mg/dL (0.6-1.3); ISTAT iCA 1.16 mmol/L (1.12-1.32)
[2023-02-24] MEDS ORDERED: PATIENT OWN MEDICATION IH SCH (07:00)
[2023-02-24 08:18] LABS: INR 1.44 (0.8-3.0); PROTIME 15.3 SECONDS (9.4-12.5)
[2023-02-24] MEDS: ENTRESTO 49 MG-51 MG TABLET PO SCH (09:53)
[2023-02-24] MEDS: Cordarone 200 MG PO SCH (09:53)
[2023-02-24] MEDS: VITAMIN D PO SCH (09:53)
[2023-02-24] MEDS: MAG-OX 400 PO SCH (09:53)
[2023-02-24] MEDS: THERAGRAN MULTIVITAMIN PO SCH (09:53)
[2023-02-24] MEDS: Klor Con PO SCH (09:54)
[2023-02-24] MEDS: Lanoxin 0.125MG TABLET PO SCH (09:54)
[2023-02-24] MEDS: Lexapro PO SCH (09:54)
--- NOTE | 2023-02-24 12:58 | PCM.DS ---
Discharge Summary Date of Admission: 02/20/23 14:56 Date of Discharge: 02/24/2023 Admitting Physician: TONI WOOD MD Primary Care Provider: [facility] Allergies Allergies No Known Drug Allergies Allergy (Verified 02/20/23 12:42) Hospital Summary - Hospital Course Hospital Course: 82-year-old woman with a history of A-fib, hypertension, CHF, COPD, with a history of recurrent syncope and multiple falls, who presented to the emergency department after another fall, with laceration and hematoma over her right orbit. She had no loss of consciousness, but on arrival, her INR was 7.[address] head did not show any intracranial issues, just a scalp hematoma. She was placed in observation for evaluation of the hematoma and evaluation for acute cystitis. ## Frequent falls, right orbit hematoma initially, patient had swelling around the right orbit making it difficult to open her eye. However, the swelling generally decreased. She had no vision changes once or I could open well. The hematoma did spread along fascial planes, down to her right chin and over to her left orbit, but her pain was well controlled. She continued to have significant difficulty with ambulation and felt unsteady in her gait. Of note, patient fell at home despite use of rolling walker and presence of home health aide at her side. We stopped patient's Lasix due to hypotension, apparent euvolemia, and possible contribution to her falls. We recommended that patient's seek placement for continued rehabilitation and closer monitoring. This would require a stay at a senior care. Patient has no more Medicare benefit days for correction, and would be self-pay under residential care. Family declined this option, stating that they had enough help at home to keep monitoring patient. Because of her recurrent falls, and the lability of her INR, her anticoagulation was stopped, due to risk of further bleeding. ## Asymptomatic bacteriuria patient has a history of multiple ESBL E. coli UTIs. However, she has been getting surveillance urine cultures with her home health nurse every 2 weeks. She still was growing ESBL E. coli from the last culture, but she had no pyuria on urinalysis, and denied any symptoms of dysuria or urinary urgency. As patient has asymptomatic bacteriuria, opted not to continue any antibiotics for this. Plan was discussed with patient's primary provider Dr. Garcias. ##Atrial fibrillation she remained rate controlled in sinus rhythm throughout most of her stay. Her INR was 7.6 on arrival, despite weekly monitoring by her home health nurse. No other new medications have been started to explain the sudden rise in her INR. Her warfarin was held, and INR was down to 1.7 prior to discharge. Discussed with patient's daughter, and patient had previously been on Eliquis, but it was stopped, apparently for financial reasons. We discussed going back to a direct oral anticoagulant, to decrease patient's risk of extreme supratherapeutic levels. However, given patient's history of frequent falls, even inappropriately dose anticoagulant would be high risk for the patient. As such, her anticoagulation was not restarted on discharge. Her carvedilol was stopped due to hypotension. She was maintained on amiodarone 200 daily, but her digoxin was decreased due to levels being slightly above goal and good heart rate control. ## Chronic systolic heart failure she was intolerant of spironolactone and carvedilol due to hypotension. She was able to tolerate her Entresto BID. She remained euvolemic during her stay, and her Lasix was held due to dizziness and poor oral intake. Entirety of encounter took place via telemedicine. Patient consented to telemedicine. Greater than 30 minutes managing discharge. - Vitals & Intake/Output Vital Signs: Vital Signs Temperature 97.9 F 02/24/23 12:00 Pulse Rate 67 02/24/23 12:00 Respiratory Rate 16 02/24/23 12:00 Blood Pressure 112/54 02/24/23 12:00 O2 Sat by Pulse Oximetry 97 02/24/23 12:00 Intake & Output: Intake & Output 02/22/23 02/23/23 02/24/23 02/25/23 11:59 11:59 11:59 11:59 Intake Total 860 1303 1560 Output Total 3307 463 3389 Balance -990 503 -840 - Lab Result Diagrams: 02/23/23 04:21 02/24/23 04:29 Lab Results-Last 24 Hrs: Lab Results-Last 24 Hours 02/24/23 02/24/23 Range/Units 04:29 04:29 PT 15.3 H (9.4-12.5) SECONDS INR 1.44 (0.8-3.0) Sodium Direct 134 L (138-146) mmol/L Potassium 4.3 (3.5-4.9) mmol/L Chloride 98 (98-109) mmol/L Carbon Dioxide 26 (24-29) mmol/L Venous BUN 20 (8-26) mg/dL Creatinine 0.8 (0.6-1.3) mg/dL Glucose 94 (70-105) mg/dL Ionized Calcium 1.16 (1.12-1.32) mmol/L Micro Results-Entire Visit: Microbiology 02/20/23 13:11 Urine Culture - Final Catherized Escherichia Coli - Radiology Exams Ordered Rad Exams-Entire Visit: CT head: New small right frontal scalp hematoma. No acute intracranial hemorrhage, abnormal extra-axial fluid collection, or mass effect. Age-appropria te global atrophy and minimal periventricular degenerative microischemia, that is unchanged. Chest x-ray: Limited due to hand overlying lung field, but visualized lungs were clear. No pulmonary edema. - Procedures and Test Procedures and Tests throughout Hospitalization: Therapy Orders & Screens 02/20/23 15:34 PT Eval & Treat (MD Order) ONCE Reason for Eval:: frequent falls Diagnosis: UTI OT Eval and Treat (MD Order) ONCE Comment: Physician Instructions: Reason For Exam: 02/20/23 16:09 Respiratory Therapy Assessment DAILY Comment: Diagnosis: UTI Discharge Exam General Appearance: no apparent distress Neurologic Exam: alert Eye Exam: other (Decreasing intensity of hematoma on the right eye. Able to open the right orbit completely. Spread to hematoma along fascial planes of the left orbit and right chin.), No photophobia Respiratory Exam: normal breath sounds, other (On room air), No accessory muscle use, No wheezing Cardiovascular Exam: regular rate/rhythm, No murmur, No edema Gastrointestinal/Abdomen Exam: soft, No tenderness, No distention Wound Assessment: Skin/Wound Assessment Wound/Incision Assessment Start: 02/20/23 15:45 Text: Status: Active Freq: Q6H Protocol: Document 02/24/23 02:00 (Rec: 02/24/23 02:47 [email or web address]) Wound/Incision Assessment Right Medial Buttock Wound Assessment Shift Assessment Wound Type Pressure Ulcer Wound Stage Stage II Drainage Amount None Drainage Odor None/Absent General Appearance Open to air,Reddened Surrounding Tissue Bright Red,Blanched/Dull Wound Photo Photo Taken No Final Diagnosis/Problem List - Final Discharge Diagnosis/Problem (1) Fall Current Visit: No Status: Acute Code(s): W19.XXXA - UNSPECIFIED FALL, INITIAL ENCOUNTER (2) Hematoma of right orbit Current Visit: Yes Status: Acute Code(s): H05.231 - HEMORRHAGE OF RIGHT ORBIT (3) Atrial fibrillation Current Visit: No Status: Chronic Code(s): I48.91 - UNSPECIFIED ATRIAL FIBRILLATION (4) CHF (congestive heart failure) Current Visit: No Status: Chronic Code(s): I50.9 - HEART FAILURE, UNSPECIFIED Telemedicine Encounter - Telemedicine Encounter Telemedicine Encounter: The entirety of this encounter was performed via Telemedicine" - Discharge Discharge Date: 02/24/23 Disposition: Home, Self-Care Condition: Fair Prescriptions: New Digoxin 62.5 mcg PO DAILY #30 tablet Continue Amiodarone HCl 200 mg [Cordarone 200 MG] 200 mg PO DAILY Cholecalciferol (Vitamin D3) [Vitamin D] 5,000 units PO DAILY Fluticasone/Umeclidin/Vilanter [Trelegy Ellipta 100-62.5-25] 1 puff IH DAILY Potassium Chloride 20 meq PO DAILY Multivitamin 1 tablet PO DAILY Magnesium Oxide 400 mg [Mag-Ox 400] 400 mg PO DAILY Sacubitril/Valsartan [Entresto 24 mg-26 mg Tablet] 24 - 26 mg PO BID Escitalopram Oxalate [Lexapro] 5 mg PO DAILY Discontinued Carvedilol 12.5 mg [Coreg 12.5 mg] 12.5 mg PO BID Digoxin 0.125 mg Tablet [Lanoxin 0.125MG TABLET] 0.125 mg PO DAILY Warfarin Sodium 3 mg PO DAILY Furosemide 20 mg [Lasix 20 mg] 40 mg PO DAILY Spironolactone 25 mg [Aldactone 25 MG] 25 mg PO DAILY Additional Instructions: Stop taking the warfarin, carvedilol, furosemide, and spironolactone. Please waste picker your new decreased dose of digoxin from the pharmacy. Follow up with: TASHA GARCIAS DO [ACTIVE STAFF] - [facility] - BAUTISTA HUYNH [CONSULTING PHYSICIAN] - 1 month
[2023-02-24] MEDS: TYLENOL 325 MG PO PRN (14:31)
[2023-02-24 17:01] VITALS: BP 127/64; PULSE 56; O2SAT 92
[2023-02-24] MEDS ORDERED: Coumadin 3 MG PO SCH (18:00)
== END 2023-02-24 18:05 | disposition home health service (06) | DRG 125 ==
LOC: ED 12:25 → MED SURG 14:56
PROVIDERS: ADMIT Internal Medicine; ATTEND Internal Medicine
DX: H05.231 Hemorrhage of right orbit (principal); N39.0 Urinary tract infection, site not specified; W19.XXXA Unspecified fall, initial encounter; I48.91 Unspecified atrial fibrillation; I11.0 Hypertensive heart disease with heart failure; I50.9 Heart failure, unspecified; J44.9 Chronic obstructive pulmonary disease, unspecified; R00.1 Bradycardia, unspecified; I95.9 Hypotension, unspecified; L89.312 Pressure ulcer of right buttock, stage 2; Z91.81 History of falling; Z79.01 Long term (current) use of anticoagulants; Z20.828 Contact with and (suspected) exposure to other viral communicable diseases; Z79.899 Other long term (current) drug therapy
CPT/HCPCS: 36000; 36415; 51702; 70450; 71045; 80047; 80048; 80053; 80162; 81001; 82550; 83605; 83690; 84484; 85025; 85027; 85610; 87077; 87086; 87186; 93005; 93041; 94760; 96365; 97161; 97165; 99284; Q3014; A9270-GY

== ENCOUNTER 2023-03-28 12:00 | Emergency (ER) | payer MEDICARE, OTHER ==
--- NOTE | 2023-03-28 12:19 | ERPHSYRPT ---
- History of Present Illness Time Seen by Provider: 03/28/23 12:19 Source: patient, family Exam Limitations: no limitations Physician History: This is an 82-year-old white female patient who was brought in by her family from which I obtained independent medical health information and history of present illness information from, with concerns for urinary tract infection. Patient has been having recurrent urinary tract infections patient is having increasing confusion and change in her balance. Patient was seen on 02/20/2023 in this emergency department and was diagnosed with a UTI and weakness. She was placed in the hospital and I reviewed that hospitalization. Patient has a history of arrhythmia (atrial fibrillation), CHF, COPD, hypertension and has an internal defibrillator/pacemaker in place. Family states that the defibrillator portion has not been hooked up just yet. Patient was brought into the emergency department via wheelchair from the waiting room. Patient has also been complaining of intermittent burning in the chest. She denies any type of pain, chest pain or discomfort at this time. Patient states she is no longer on Coumadin. Patient has an appointment to see Dr. Anthony, a urologist, as well as an appointment to see her safety belt installer, Dr. Upton on 03/31/2023. Family also states that she dropped hot food on her chest when eating approximately 2 weeks ago and there is an eschar/healing wound present upper midline chest. Timing/Duration: day(s) (Last few days) Activites at Onset: none Quality: burning (With urination), other (Patient also has burning mid chest where she had accidentally burned herself with hot food) Pain Radiation: none Severity of Pain-Max: mild Severity of Pain-Current: mild Sexual intercourse history: non-contributory Modifying Factors: Improves With: urinating Associated Symptoms: dysuria, urinary frequency, No abdominal pain Allergies/Adverse Reactions: No Known Drug Allergies Allergy (Verified 03/28/23 12:11) Home Medications: Amiodarone HCl 200 mg [Cordarone 200 MG] 200 mg PO DAILY 11/18/22 [History] Cholecalciferol (Vitamin D3) [Vitamin D] 5,000 units PO DAILY 11/18/22 [History] Fluticasone/Umeclidin/Vilanter [Trelegy Ellipta 100-62.5-25] 1 puff IH DAILY 11/18/22 [History] Magnesium Oxide 400 mg [Mag-Ox 400] 400 mg PO DAILY 12/05/22 [History] Multivitamin 1 tablet PO DAILY 12/05/22 [History] Potassium Chloride 20 meq PO DAILY 12/05/22 [History] Sacubitril/Valsartan [Entresto 24 mg-26 mg Tablet] 24 - 26 mg PO BID 12/05/22 [History] Escitalopram Oxalate [Lexapro] 5 mg PO DAILY 02/20/23 [History] Hx Tetanus, Diphtheria Vaccination/Date Given: Yes Hx Influenza Vaccination/Date Given: Yes Hx Pneumococcal Vaccination/Date Given: Yes Travel Risk - International Travel Have you traveled outside of the country in past 3 weeks: No - Coronavirus Screening Are you exhibiting any of the following symptoms?: No Close contact with a COVID-19 positive Pt in past 14-21 Days: No - Vaccine Status Have you recieved a Covid-19 vaccination: No - Review of Systems Constitutional: No Symptoms Eyes: No Symptoms Ears, Nose, & Throat: No Symptoms Respiratory: No Symptoms Cardiac: No Symptoms, No Chest Pain Abdominal/Gastrointestinal: No Symptoms Genitourinary Symptoms: Dysuria, Frequency Musculoskeletal: No Symptoms Skin: Other (Healing burn site upper central superficial chest wall) Neurological: No Symptoms Psychological: No Symptoms Endocrine: No Symptoms Hematologic/Lymphatic: No Symptoms Immunological/Allergic: No Symptoms All Other Systems: Reviewed and Negative - Past Medical History Pertinent Past Medical History: Yes Neurological History: No Pertinent History ENT History: No Pertinent History Cardiac History: Arrhythmia, Congestive Heart Failure, Hypertension Respiratory History: COPD Endocrine Medical History: Diabetes Type II Musculoskeletal History: Arthritis GI Medical History: Gallbladder Disease, Polyps History: No Pertinent History Psycho-Social History: No Pertinent History Female Reproductive Disorders: No Pertinent History Other Medical History: DAUGHTER AND PATIENT BOTH DENY BEING DIABETIC - Past Surgical History Past Surgical History: Yes Neuro Surgical History: No Pertinent History Cardiac: Internal Defibrillator, Pacemaker Respiratory: No Pertinent History Gastrointestinal: Cholecystectomy Genitourinary: No Pertinent History Musculoskeletal: Joint Replacement Female Surgical History: Hysterectomy Other Surgical History: lucy knees - Social History Smoking Status: Never smoker Exposure to second hand smoke: No Drug Use: none Patient Lives Alone: No Significant Family History: no pertinent family hx - Nursing Vital Signs Nursing Vital Signs: Initial Vital Signs Temperature 98.2 F 03/28/23 12:12 Pulse Rate 76 03/28/23 12:12 Respiratory Rate 18 03/28/23 12:12 Blood Pressure 139/54 03/28/23 12:12 O2 Sat by Pulse Oximetry 99 03/28/23 12:12 Pain Scale Pain Intensity 0 - Physical Exam General Appearance: no apparent distress, alert, thin Eye Exam: PERRL/EOMI, eyes nml inspection Ears, Nose, Throat Exam: normal ENT inspection, moist mucous membranes Neck Exam: normal inspection, non-tender, supple, full range of motion Respiratory Exam: normal breath sounds, lungs clear, airway intact, No chest tenderness, No respiratory distress Cardiovascular Exam: irregular Gastrointestinal/Abdomen Exam: soft, normal bowel sounds, No tenderness Pelvic Exam: not done Rectal Exam: not done Back Exam: normal inspection, normal range of motion, No CVA tenderness, No vertebral tenderness Extremity Exam: normal inspection, normal range of motion, pelvis stable Neurologic Exam: alert, oriented x 3, cooperative, 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 No acute ischemic changes present.) Ordered Tests: Active Orders 24 hr Category Date Time Status EKG-ER Only STAT Care 03/28/23 12:30 Active IV Insertion STAT Care 03/28/23 13:24 Active cath [Cath for Specimen-Straight] STAT Care 03/28/23 12:27 Active BMP Stat Lab 03/28/23 12:20 Completed CBC W DIFF Stat Lab 03/28/23 12:20 Completed CULTURE,URINE Stat Lab 03/28/23 12:28 Received TROPONIN Q4H Lab 03/28/23 12:20 Completed TROPONIN Q4H Lab 03/28/23 12:20 Received TROPONIN Q4H Lab 03/28/23 12:20 Received UA W/RFX UR CULTURE Stat Lab 03/28/23 12:28 Completed Medication Summary Generic Name Dose Route Start Last Admin Trade Name Freq PRN Reason Stop Dose Admin Ceftriaxone Sodium/Dextrose 1 g in 50 mls @ 100 mls/hr 03/28/23 14:36 Rocephin 1 Gm-D5w 50 Ml Bag IV 03/28/23 15:05 STAT STA Sodium Chloride 500 mls @ 500 mls/hr 03/28/23 14:36 Sodium Chloride 0.9% 500 Ml IV 03/28/23 15:35 .Q1H ONE Lab/Rad Data: Laboratory Result Diagrams 03/28/23 12:20 03/28/23 12:20 Laboratory Results 03/28/23 03/28/23 03/28/23 Range/Units 12:28 12:20 12:20 WBC 6.4 (4.0-10.5) x10^3/uL RBC 4.42 (4.1-5.4) x10^6/uL Hgb 13.3 (12.0-16.0) g/dL Hct 42.6 (35-47) % MCV 96.4 (78-100) fL MCH 30.1 (26-32) pg MCHC 31.2 L (32-36) g/dL RDW 16.5 H (11.5-14.0) % Plt Count 239 (150-450) x10^3/uL MPV 10.0 (7.5-11.0) fL Gran % 64.2 (36.0-66.0) % Immature Gran % (Auto) 0.3 (0.00-0.4) % Nucleat RBC Rel Count 0.0 (0.00-0.1) % Eos # (Auto) 0.13 (0-0.5) x10^3/uL Immature Gran # (Auto) 0.02 (0.00-0.03) x10^3u/L Absolute Lymphs (auto) 1.31 (1.0-4.6) x10^3/uL Absolute Monos (auto) 0.71 (0.0-1.3) x10^3/uL Absolute Nucleated RBC 0.00 (0.00-0.01) x10^3u/L Lymphocytes % 20.5 L (24.0-44.0) % Monocytes % 11.1 (0.0-12.0) % Eosinophils % 2.0 (0.00-5.0) % Basophils % 1.9 (0.0-0.4) % Absolute Granulocytes 4.10 (1.4-6.9) x10^3/uL Basophils # 0.12 (0-0.4) x10^3/uL Sodium 139 (137-145) mmol/L Potassium 4.3 (3.5-5.1) mmol/L Chloride 102 (98-107) mmol/L Carbon Dioxide 29 (22-30) mmol/L Anion Gap 12.9 (5-15) MEQ/L BUN 19 H (7-17) mg/dL Creatinine 0.69 (0.52-1.04) mg/dL Estimated GFR > 60.0 ML/MIN Glucose 113 H (74-106) mg/dL Calcium 9.0 (8.4-10.2) mg/dL Troponin I < 0.012 (0.000-0.034) ng/mL Urine Color Dark Yellow A (Yellow) Urine Appearance Cloudy A (Clear) Urine pH 5.0 (4.6-8.0) Ur Specific [place] >=1.030 A (1.005-1.030) Urine Protein Trace A (Negative) Urine Glucose (UA) Negative (Negative) mg/dL Urine Ketones Trace A (Negative) Urine Blood Small A (Negative) Urine Nitrite Positive A (Negative) Urine Bilirubin Small A (Negative) Urine Urobilinogen 1.0 A (0.2) mg/dL Ur Leukocyte Esterase Small A (Negative) U Hyaline Cast (Auto) 11-20 (0-2) /LPF Urine Microscopic RBC 3-5 (0-5) /HPF Urine Microscopic WBC 6-10 A (0-5) /HPF Ur Epithelial Cells Moderate A (None Seen) /HPF Urine Bacteria Rare A (None Seen) /HPF Urine Culture Reflexed ORDERED SEPARATELY (NO) - Progress Progress: improved, re-examined Air Movement: good Progress Note: 03/28/23 14:39 This patient's medical issue is 1 of moderate complexity. Level of complexity in the work-up performed is based on review of the patient's past medical h istory, review the patient's drug allergy list, review of the patient's medication list, history of present illness and physical findings on examination. The work-up in this patient includes placement of an intravenous line, infusion of normal saline solution, urinalysis, CBC, CMP, twelve-lead EKG and troponin level as well as urine specimen for urinalysis. The patient has a urinary tract infection and is mildly dehydrated. I reviewed the results of the work-up. I discussed these results with the patient and the patient's family. The patient also has a chronic skin wound of the chest that is superficial and localized. There is eschar present. The nurses cleaned the site and placed derrell ssing on it. Patient will be discharged home from the emergency department. She is to keep her appointments with her safety belt installer on 03/31/2023 as well as her urology appointment next week. She will be discharged to home with Levaquin 500 mg orally once a day prescription that will be remotely sent to her pharmacy. Patient told me she is no longer on the Coumadin/warfarin. Therefore we will use the Levaquin antibiotic to cover both skin infection and urinary tract infection 03/28/23 14:43 Blood Culture(s) Obtained: No Antibiotics given: Yes Counseled pt/family regarding: lab results, diagnosis, need for follow-up Medical Desision Making - Independent Historian Additional History obtained from: Family - Diagnostic Testing Diagnostic test were ordered, analyzed, and reviewed by me: Yes - Risk of complications The pt has a mod risk of morbidity or mortality based on: Need for prescription drug management - Departure Departure Disposition: Home Clinical Impression: UTI (urinary tract infection), Wound of skin, Mild dehydration Condition: Stable Critical Care Time: No Referrals: [facility] [Primary Care Provider] - Follow up/PCP as directed Additional Instructions: Keep the chest wound clean daily with soap and water and may apply [id number] antibiotic of choice and cover the wound. Take the antibiotics as prescribed. Drink plenty of fluids. Take your other medications as prescribed. Keep your cardiology and urology appointment as scheduled. Prescriptions: Levofloxacin [Levaquin 500 MG Tablet] 500 mg PO DAILY #7 tablet
[2023-03-28 12:25] VITALS: RESP 18; TEMP 98.2; O2SAT 99
[2023-03-28 12:40] LABS: BASOPHIL % 1.9 % (0.0-0.4); Basophil (Absolute #) 0.12 x10^3/uL (0-0.4); Eosinophil (Absolute #) 0.13 x10^3/uL (0-0.5); Hematocrit 42.6 % (35-47); Hemoglobin 13.3 g/dL (12.0-16.0); IMMATURE GRAN # 0.02 x10^3u/L (0.00-0.03); IMMATURE GRAN % 0.3 % (0.00-0.4); Lymphocyte (Absolute #) 1.31 x10^3/uL (1.0-4.6); Lymphocytes % 20.5 % (24.0-44.0); Mean Cell Volume 96.4 fL (78-100); Mean Corpuscular Hemoglobin 30.1 pg (26-32); Mean Corpuscular Hgb Concent. 31.2 g/dL (32-36); Monocyte (Absolute #) 0.71 x10^3/uL (0.0-1.3); Monocytes % 11.1 % (0.0-12.0); Neutrophil % 64.2 % (36.0-66.0); Platelet Count 239 x10^3/uL (150-450); Red Blood Count 4.42 x10^6/uL (4.1-5.4); Red Cell Distribution Width 16.5 % (11.5-14.0); White Blood Count 6.4 x10^3/uL (4.0-10.5)
[2023-03-28 12:49] LABS: Appearance Cloudy (Clear); Bacteria Rare /HPF (None Seen); Bilirubin Small (Negative); Blood Small (Negative); Epithelial Cells Moderate /HPF (None Seen); Glucose, Urine Negative (Negative); Ketones Trace (Negative); Leukocyte Esterase Small (Negative); Nitrite Positive (Negative); Protein,Urine Dip Trace (Negative); Specific Gravity >=1.030 (1.005-1.030)
[2023-03-28 12:53] LABS: ADD URINE CULTURE? ORDERED SEPARATELY (NO)
[2023-03-28 12:59] LABS: ANION GAP 12.9 MEQ/L (5-15); BLOOD UREA NITROGEN 19 mg/dL (7-17); CHLORIDE 102 mmol/L (98-107); Carbon Dioxide 29 mmol/L (22-30); Creatinine 1 0.69 mg/dL (0.52-1.04); EST GLOMERULAR FILTRATION RATE > 60.0 ML/MIN; Glucose 113 mg/dL (74-106); Potassium 4.3 mmol/L (3.5-5.1); SODIUM 139 mmol/L (137-145); TROPONIN < 0.012 ng/mL (0.000-0.034)
[2023-03-28 13:09] VITALS: BP 138/52; PULSE 67
[2023-03-28] MEDS ORDERED: Sodium Chloride 0.9% 500 ML 500 ML IV ONE ×2 (14:36→14:48)
[2023-03-28] MEDS ORDERED: ROCEPHIN 1 Gm-D5w 50 ml Bag** 1 G/50 ML IVPB IV STA (14:36)
[2023-03-28] MEDS ORDERED: ROCEPHIN 1 Gm-D5w 50 ml Bag** 1 G/50 ML IVPB IV ONE (14:48)
== END 2023-03-28 15:40 | disposition home or self-care (01) ==
LOC: ED 12:00
DX: N39.0 Urinary tract infection, site not specified (principal); T21.01XA Burn of unspecified degree of chest wall, initial encounter; X10.1XXA Contact with hot food, initial encounter; E86.0 Dehydration; R41.0 Disorientation, unspecified; R07.9 Chest pain, unspecified; I11.0 Hypertensive heart disease with heart failure; I50.9 Heart failure, unspecified; E11.9 Type 2 diabetes mellitus without complications; Z79.899 Other long term (current) drug therapy; Z28.310 Unvaccinated for COVID-19
CPT/HCPCS: 36000; 36415; 80048; 81001; 84484; 85025; 87077; 87086; 87186; 93005; 96360; 96365; 99284; P9612; J0696

== ENCOUNTER 2023-03-29 12:52 | Emergency (ER) | payer MEDICARE, OTHER ==
[2023-03-29 13:22] VITALS: TEMP 97.5; O2SAT 98
--- NOTE | 2023-03-29 13:41 | ERPHSYRPT ---
- History of Present Illness Time Seen by Provider: 03/29/23 13:39 Source: patient Exam Limitations: no limitations Patient Subjective Stated Complaint: Patient with c/o generalized weakness. She states her kids told her that it was just old age. SPoke with patient about UTI diagnosis from yesterday and asked if she had taken her prescribed antibiotic today; patient voiced that she doesn't believe that she has taken it today. Triage Nursing Assessment: Patient brought back to ER in W/C. She was able to stand and transfer from w/ to bed with assist of one nurse; bearing weight without difficulties. Patient's mobility does not appear to have decreased from yesterday to today. Denies pain but c/o that she feels like she needs to use the restroom often. No SOB. No cough. Patient is alert at this time. Physician History: Patient with c/o generalized weakness. She states her kids told her that it was just old age. Spoke with patient about UTI diagnosis from yesterday and asked if she had taken her prescribed antibiotic today; patient voiced that she doesn't believe that she has taken it today.Patient denies any other symptoms Associated Symptoms: denies symptoms Allergies/Adverse Reactions: No Known Drug Allergies Allergy (Verified 03/29/23 13:07) Home Medications: Amiodarone HCl 200 mg [Cordarone 200 MG] 200 mg PO DAILY 11/18/22 [History] Cholecalciferol (Vitamin D3) [Vitamin D] 5,000 units PO DAILY 11/18/22 [History] Fluticasone/Umeclidin/Vilanter [Trelegy Ellipta 100-62.5-25] 1 puff IH DAILY 11/18/22 [History] Magnesium Oxide 400 mg [Mag-Ox 400] 400 mg PO DAILY 12/05/22 [History] Multivitamin 1 tablet PO DAILY 12/05/22 [History] Potassium Chloride 20 meq PO DAILY 12/05/22 [History] Sacubitril/Valsartan [Entresto 24 mg-26 mg Tablet] 24 - 26 mg PO BID 12/05/22 [History] Escitalopram Oxalate [Lexapro] 5 mg PO DAILY 02/20/23 [History] levoFLOXacin [Levofloxacin] 1 tab PO DAILY 03/29/23 [History] Hx Tetanus, Diphtheria Vaccination/Date Given: Yes Hx Influenza Vaccination/Date Given: Yes Hx Pneumococcal Vaccination/Date Given: Yes Immunizations Up to Date: Yes Travel Risk - International Travel Have you traveled outside of the country in past 3 weeks: No - Coronavirus Screening Are you exhibiting any of the following symptoms?: No Close contact with a COVID-19 positive Pt in past 14-21 Days: No - Vaccine Status Have you recieved a Covid-19 vaccination: No - Review of Systems Constitutional: Malaise, Weakness, No Fever, No Chills Eyes: No Symptoms Ears, Nose, & Throat: No Symptoms Respiratory: No Cough, No Dyspnea Cardiac: No Chest Pain, No Edema, No Syncope Abdominal/Gastrointestinal: No Abdominal Pain, No Nausea, No Vomiting, No Diarrhea Genitourinary Symptoms: Dysuria, Frequency, Urgency Musculoskeletal: No Back Pain, No Neck Pain Skin: No Rash Neurological: No Dizziness, No Focal Weakness, No Sensory Changes Psychological: No Symptoms Endocrine: No Symptoms All Other Systems: Reviewed and Negative - Past Medical History Pertinent Past Medical History: Yes Neurological History: No Pertinent History ENT History: No Pertinent History Cardiac History: Arrhythmia, Congestive Heart Failure, Hypertension Respiratory History: COPD, Other (intertitial lung disease, Pulmonary hypertension) Endocrine Medical History: Diabetes Type II Musculoskeletal History: Arthritis GI Medical History: Gallbladder Disease, Polyps History: No Pertinent History Psycho-Social History: No Pertinent History Female Reproductive Disorders: No Pertinent History Other Medical History: A-fib, UTI - Past Surgical History Past Surgical History: Yes Neuro Surgical History: No Pertinent History Cardiac: Internal Defibrillator, Pacemaker Respiratory: No Pertinent History Gastrointestinal: Cholecystectomy Genitourinary: No Pertinent History Musculoskeletal: Joint Replacement Female Surgical History: Hysterectomy Other Surgical History: lucy knees - Social History Smoking Status: Never smoker Exposure to second hand smoke: No Drug Use: none Patient Lives Alone: No Significant Family History: no pertinent family hx - Nursing Vital Signs Nursing Vital Signs: Initial Vital Signs Temperature 97.5 F 03/29/23 12:52 Pulse Rate 67 03/29/23 12:52 Respiratory Rate 23 03/29/23 12:52 Blood Pressure 159/63 03/29/23 12:52 O2 Sat by Pulse Oximetry 97 03/29/23 12:52 Pain Scale Pain Intensity 0 - Physical Exam General Appearance: no apparent distress, alert Eye Exam: PERRL/EOMI, eyes nml inspection Ears, Nose, Throat Exam: normal ENT inspection, TMs normal, pharynx normal, moist mucous membranes Neck Exam: normal inspection, non-tender, supple, full range of motion Respiratory Exam: diminished breath sounds, crackles/rales, rhonchi, wheezing, No respiratory distress Cardiovascular Exam: irregular, capillary refill >3 sec Gastrointestinal/Abdomen Exam: soft, normal bowel sounds, No tenderness, No mass Back Exam: normal inspection, normal range of motion, No CVA tenderness, No vertebral tenderness Extremity Exam: normal inspection, normal range of motion, pelvis stable Neurologic Exam: alert, oriented x 3, cooperative, normal mood/affect, confusion, No motor deficits Skin Exam: normal color, warm, dry, No rash Lymphatic Exam: No adenopathy SpO2 Interpretation: normal SpO2: 98 O2 Delivery: Room Air - Course Nursing assessment & vital signs reviewed: Yes Ordered Tests: Active Orders 24 hr Category Date Time Status [place] [Catheter-[place]] STAT Care 03/29/23 14:53 Active Medication Summary Generic Name Dose Route Start Last Admin Trade Name Freq PRN Reason Stop Dose Admin Lactated Ringer's 1,000 mls @ 100 mls/hr 03/29/23 14:30 03/29/23 14:31 Lactated Ringers IV 04/28/23 14:29 100 mls/hr .Q10H JERRY Administration Discontinued Medications Generic Name Dose Route Start Last Admin Trade Name Freq PRN Reason Stop Dose Admin Lactated Ringer's 500 mls @ 100 mls/hr 03/29/23 13:48 Lactated Ringers IV 03/29/23 18:47 .Q5H ONE Lactated Ringer's Confirm 03/29/23 14:28 Lactated Ringers Administered 03/29/23 14:29 Dose 1,000 mls @ ud IV .STK-MED ONE - Progress Progress: unchanged Discussed with : Other (hospice) Counseled pt/family regarding: diagnosis - Departure Departure Disposition: Home (with Hospice and palliative care service) Clinical Impression: Chronic a-fib, UTI due to extended-spectrum beta lactamase (ESBL) producing Escherichia coli, Interstitial lung disease, Pulmonary hypertension CHF (congestive heart failure) Qualifiers: Heart failure type: combined systolic and diastolic Heart failure chronicity: chronic Qualified Code(s): I50.42 - Chronic combined systolic (congestive) and diastolic (congestive) heart failure DM2 (diabetes mellitus, type 2) Qualifiers: Diabetes mellitus snf insulin use: without terminal superintendent use Diabetes mellitus complication status: with kidney complications Diabetes mellitus complication detail: with chronic kidney disease Chronic kidney disease stage: stage 3 (moderate) Chronic kidney disease stage 3 subtype: stage 3b (GFR 30-44) Qualified Code(s): E11.22 - Type 2 diabetes mellitus with diabetic chronic kidney disease Condition: Stable Critical Care Time: No Referrals: [facility] [Primary Care Provider] - Follow up/PCP as directed Instructions: Heart Failure, Medical care during advanced illness, Palliative Care, Getting the Care You Need Prescriptions: Nitroglycerin 0.4 mg SL PER HOUR PRN #30 tablet PRN Reason: Chest Pain
[2023-03-29] MEDS ORDERED: Lactated Ringers 500 ML IV ONE (13:48)
[2023-03-29] MEDS ORDERED: Lactated Ringers 1,000 ML IV ONE (14:28)
[2023-03-29] MEDS ORDERED: Lactated Ringers 1,000 ML IV SCH (14:30)
[2023-03-29 17:52] VITALS: BP 180/97; PULSE 74; RESP 27
== END 2023-03-29 18:52 | disposition home or self-care (01) ==
LOC: ED 12:52
DX: N39.0 Urinary tract infection, site not specified (principal); B96.29 Other Escherichia coli [E. coli] as the cause of diseases classified elsewhere; I48.20 Chronic atrial fibrillation, unspecified; J84.9 Interstitial pulmonary disease, unspecified; I27.20 Pulmonary hypertension, unspecified; I13.0 Hypertensive heart and chronic kidney disease with heart failure and stage 1 through stage 4 chronic kidney disease, or unspecified chronic kidney disease; I50.42 Chronic combined systolic (congestive) and diastolic (congestive) heart failure; E11.22 Type 2 diabetes mellitus with diabetic chronic kidney disease; N18.32 Chronic kidney disease, stage 3b; R53.1 Weakness; Z79.899 Other long term (current) drug therapy; Z28.310 Unvaccinated for COVID-19
CPT/HCPCS: 36000; 51702; 99284